=== PATIENT | male | born 1980 | race Caucasian/White ===

== ENCOUNTER 2018-09-11 23:49 | Inpatient (IN) | payer OTHER ==
[2018-09-11] MEDS ORDERED: SODIUM CHLORIDE 0.9% 1,000 ML IV ONE ×2 (23:54)
[2018-09-11] MEDS ORDERED: INSULIN REGULAR 100 UNIT/ML VIAL IV STA (23:55)
[2018-09-12 00:03] LABS: Glucose,Whole Blood >600 mg/dL (75-99)
[2018-09-12 00:18] LABS: Ammonia <9 umol/L (<30)
[2018-09-12 00:21] LABS: Calcium 9.8 mg/dL (8.4-10.2); Potassium 5.1 mmol/L (3.5-5.1); Total Bilirubin 0.7 mg/dL (0.2-1.3); Total Protein 6.3 g/dL (6.3-8.2)
[2018-09-12 00:23] LABS: Appearance,Urine Clear (Clear); Bilirubin,Urine Negative (Negative); Blood,Urine Negative (Negative); Color,Urine Light Yellow; Glucose,Urine (UA) 4+ (Negative); Ketones,Urine 1+ (Negative); Leukocyte Esterase,Urine Negative (Negative); Nitrite,Urine Negative (Negative); Protein,Urine Trace (Negative); Specific Gravity,Urine 1.029 (1.001-1.035); Urobilinogen,Urine <2.0 mg/dL (<2.0)
--- NOTE | 2018-09-12 00:25 | ED ---
Altered Mental Status HPI - General Chief Complaint: Altered Mental Status Stated Complaint: unresponsive Time Seen by Provider: 09/11/18 23:54 Source: family, EMS Mode of arrival: EMS Limitations: altered mental status - History of Present Illness Initial Comments: This patient is a 38-year-old man reportedly with no past medical history, who is brought by ambulance to be evaluated for being unresponsive. The patient is not able to give any history due to altered mental status. I was able to obtain history from the patient's partner and from his mother. They relate that over the past couple of weeks he seems to have been not feeling very well, drinking more water, and urinating more frequently. This seemed to progress more rapidly over the past 3 days, and the patient was spending basically all day in bed on Tuesday and Tuesday. Tonight he was not responding verbally to them so they called EMS. EMS reported that the patient was very hypotensive with blood pressure approximately 50 systolic. MD Complaint: decreased responsiveness Onset/Timin -: days(s) Severity: severe Consistency of Symptoms: getting worse Treatments Prior to Arrival: IV fluid - Related Data Previous Rx's Medication Instructions Recorded HYDROcodone/APAP 5-325MG [[place] 1 each PO Q6HR PRN #20 tab 12/16/14 5-325] SILVER sulfADIAZINE CREAM 1 applic TOPICAL BID #60 gram 12/16/14 [Silvadene Cream] Allergies Allergy/AdvReac Type Severity Reaction Status Date / Time No Known Allergies Allergy Verified 09/11/18 23:58 Review of Systems ROS Statement: Those systems with pertinent positive or pertinent negative responses have been documented in the HPI. ROS Other: All systems not noted in ROS Statement are negative. Limitations: ROS unobtainable due to patients medical condition Endocrine: Reports: polydipsia, polyuria Past Medical History Past Medical History: No Reported History History of Any Multi-Drug Resistant Organisms: None Reported Past Surgical History: No Surgical Hx Reported Past Psychological History: No Psychological Hx Reported Smoking Status: Current every day smoker Past Alcohol Use History: None Reported Past Drug Use History: None Reported General Exam Limitations: altered mental status General appearance: obtunded Head exam: Present: atraumatic, normocephalic Eye exam: Present: PERRL. Absent: scleral icterus, conjunctival injection ENT exam: Present: mucous membranes dry Neck exam: Present: normal inspection. Absent: tenderness, meningismus Respiratory exam: Present: respiratory distress, rhonchi, other ([place]ul respirations). Absent: wheezes, rales, stridor Cardiovascular Exam: Present: normal rhythm, tachycardia, normal heart sounds. Absent: systolic murmur, diastolic murmur, rubs, gallop GI/Abdominal exam: Present: soft. Absent: tenderness, organomegaly, pulsatile mass, hernia exam: Present: normal inspection Extremities exam: Present: normal inspection. Absent: normal capillary refill, pedal edema, calf tenderness Back exam: Present: normal inspection Neurological exam: Present: altered Skin exam: Present: dry, intact, mottled. Absent: rash, diaphoretic, erythema, urticaria, vesicles, petechiae Course Vital Signs 09/11/18 09/11/18 09/12/18 23:51 23:55 00:00 Temperature 98.6 F Pulse Rate 106 H 105 H 104 H Pulse Rate [ Regional Driver ] Respiratory 22 Rate Blood Pressure 89/50 89/50 80/68 Blood Pressure [Left Arm] O2 Sat by Pulse 98 99 Oximetry 09/12/18 09/12/18 09/12/18 00:01 00:10 00:20 Temperature Pulse Rate 102 H 104 H 105 H Pulse Rate [ Regional Driver ] Respiratory 22 Rate Blood Pressure 93/48 93/48 93/48 Blood Pressure [Left Arm] O2 Sat by Pulse 95 Oximetry 09/12/18 09/12/18 09/12/18 00:30 00:40 00:50 Temperature Pulse Rate 104 H Pulse Rate [ Regional Driver ] Respiratory Rate Blood Pressure 93/48 93/48 111/61 Blood Pressure [Left Arm] O2 Sat by Pulse 100 Oximetry 09/12/18 09/12/18 09/12/18 01:00 01:30 02:00 Temperature Pulse Rate 104 H 104 H 105 H Pulse Rate [ Regional Driver ] Respiratory Rate Blood Pressure 111/61 100/53 135/81 Blood Pressure [Left Arm] O2 Sat by Pulse 100 100 97 Oximetry 09/12/18 09/12/18 09/12/18 02:30 02:45 02:49 Temperature 97 F L Pulse Rate 105 H Pulse Rate [ 105 H Regional Driver ] Respiratory 27 H Rate Blood Pressure 96/54 112/70 Blood Pressure 99/58 [Left Arm] O2 Sat by Pulse 98 96 Oximetry 09/12/18 03:00 Temperature Pulse Rate 106 H Pulse Rate [ Regional Driver ] Respiratory Rate Blood Pressure 112/70 Blood Pressure [Left Arm] O2 Sat by Pulse 95 Oximetry Medical Decision Making - Lab Data Result diagrams: 09/12/18 04:27 09/12/18 04:27 Lab Results 09/11/18 09/11/18 09/11/18 Range/Units 23:15 23:15 23:52 WBC (3.8-10.6) k/uL RBC (4.30-5.90) m/uL Hgb (13.0-17.5) gm/dL Hct (39.0-53.0) % MCV (80.0-100.0) fL MCH (25.0-35.0) pg MCHC (31.0-37.0) g/dL RDW (11.5-15.5) % Plt Count (150-450) k/uL Neutrophils % % Lymphocytes % % Monocytes % % Eosinophils % % Basophils % % Neutrophils # (1.3-7.7) k/uL Lymphocytes # (1.0-4.8) k/uL Monocytes # (0-1.0) k/uL Eosinophils # (0-0.7) k/uL Basophils # (0-0.2) k/uL Hypochromasia Macrocytosis PT (9.0-12.0) sec INR (<1.2) APTT (22.0-30.0) sec Sodium (137-145) mmol/L Potassium (3.5-5.1) mmol/L Chloride (98-107) mmol/L Carbon Dioxide (22-30) mmol/L Anion Gap mmol/L BUN (9-20) mg/dL Creatinine (0.66-1.25) mg/dL Est GFR (CKD-EPI)AfAm (>60 ml/min/1.73 sqM) Est GFR (CKD-EPI)NonAf (>60 ml/min/1.73 sqM) Glucose (74-99) mg/dL POC Glucose (mg/dL) >600 H (75-99) mg/dL POC Glu Phlebotomy Program Coordinator ID Dior Berrios Osmolality ([phone]) mosm/kg Lactic Ac Sepsis Rflx Plasma Lactic Acid Reinier (0.7-2.0) mmol/L Calcium (8.4-10.2) mg/dL Phosphorus (2.5-4.5) mg/dL Magnesium (1.6-2.3) mg/dL Total Bilirubin (0.2-1.3) mg/dL AST (17-59) U/L ALT (21-72) U/L Alkaline Phosphatase (38-126) U/L Ammonia (<30) umol/L Troponin I (0.000-0.034) ng/mL Total Protein (6.3-8.2) g/dL Albumin (3.5-5.0) g/dL Urine Color Light Yellow Urine Appearance Clear (Clear) Urine pH 5.0 (5.0-8.0) Ur Specific [place] 1.029 (1.001-1.035) Urine Protein Trace H (Negative) Urine Glucose (UA) 4+ H (Negative) Urine Ketones 1+ H (Negative) Urine Blood Negative (Negative) Urine Nitrite Negative (Negative) Urine Bilirubin Negative (Negative) Urine Urobilinogen <2.0 (<2.0) mg/dL Ur Leukocyte Esterase Negative (Negative) Urine Opiates Screen Not Detected (NotDetected) Ur Oxycodone Screen Not Detected (NotDetected) Urine Methadone Screen Not Detected (NotDetected) Ur Propoxyphene Screen Not Detected (NotDetected) Ur Barbiturates Screen Not Detected (NotDetected) U Tricyclic Antidepress Not Detected (NotDetected) Ur Phencyclidine Scrn Not Detected (NotDetected) Ur Amphetamines Screen Detected H (NotDetected) U Methamphetamines Scrn Not Detected (NotDetected) U Benzodiazepines Scrn Not Detected (NotDetected) Urine Cocaine Screen Not Detected (NotDetected) U Marijuana (THC) Screen Not Detected (NotDetected) Acetone, Qual (Negative) 09/12/18 09/12/18 09/12/18 Range/Units 00:00 00:00 00:00 WBC 15.5 H (3.8-10.6) k/uL RBC 5.18 (4.30-5.90) m/uL Hgb 16.4 (13.0-17.5) gm/dL Hct 57.5 H* (39.0-53.0) % MCV 111.0 H (80.0-100.0) fL MCH 31.6 (25.0-35.0) pg MCHC 28.5 L (31.0-37.0) g/dL RDW 12.3 (11.5-15.5) % Plt Count 245 (150-450) k/uL Neutrophils % 88 % Lymphocytes % 6 % Monocytes % 5 % Eosinophils % 0 % Basophils % 0 % Neutrophils # 13.6 H (1.3-7.7) k/uL Lymphocytes # 1.0 (1.0-4.8) k/uL Monocytes # 0.7 (0-1.0) k/uL Eosinophils # 0.1 (0-0.7) k/uL Basophils # 0.1 (0-0.2) k/uL Hypochromasia Marked Macrocytosis Marked PT (9.0-12.0) sec INR (<1.2) APTT (22.0-30.0) sec Sodium 139 (137-145) mmol/L Potassium 5.1 (3.5-5.1) mmol/L Chloride 93 L (98-107) mmol/L Carbon Dioxide 6 L* (22-30) mmol/L Anion Gap 40 mmol/L BUN 74 H (9-20) mg/dL Creatinine 5.57 H (0.66-1.25) mg/dL Est GFR (CKD-EPI)AfAm 14 (>60 ml/min/1.73 sqM) Est GFR (CKD-EPI)NonAf 12 (>60 ml/min/1.73 sqM) Glucose (74-99) mg/dL POC Glucose (mg/dL) (75-99) mg/dL POC Glu Phlebotomy Program Coordinator ID Osmolality ([phone]) mosm/kg Lactic Ac Sepsis Rflx Plasma Lactic Acid [place] 6.7 H* (0.7-2.0) mmol/L Calcium 9.8 (8.4-10.2) mg/dL Phosphorus (2.5-4.5) mg/dL Magnesium (1.6-2.3) mg/dL Total Bilirubin 0.7 (0.2-1.3) mg/dL AST 46 (17-59) U/L ALT 103 H (21-72) U/L Alkaline Phosphatase 224 H (38-126) U/L Ammonia <9 (<30) umol/L Troponin I (0.000-0.034) ng/mL Total Protein 6.3 (6.3-8.2) g/dL Albumin 4.0 (3.5-5.0) g/dL Urine Color Urine Appearance (Clear) Urine pH (5.0-8.0) Ur Specific [place] (1.001-1.035) Urine Protein (Negative) Urine Glucose (UA) (Negative) Urine Ketones (Negative) Urine Blood (Negative) Urine Nitrite (Negative) Urine Bilirubin (Negative) Urine Urobilinogen (<2.0) mg/dL Ur Leukocyte Esterase (Negative) Urine Opiates Screen (NotDetected) Ur Oxycodone Screen (NotDetected) Urine Methadone Screen (NotDetected) Ur Propoxyphene Screen (NotDetected) Ur Barbiturates Screen (NotDetected) U Tricyclic Antidepress (NotDetected) Ur Phencyclidine Scrn (NotDetected) Ur Amphetamines Screen (NotDetected) U Methamphetamines Scrn (NotDetected) U Benzodiazepines Scrn (NotDetected) Urine Cocaine Screen (NotDetected) U Marijuana (THC) Screen (NotDetected) Acetone, Qual (Negative) 09/12/18 09/12/18 09/12/18 Range/Units 00:00 00:00 00:00 WBC (3.8-10.6) k/uL RBC (4.30-5.90) m/uL Hgb (13.0-17.5) gm/dL Hct (39.0-53.0) % MCV (80.0-100.0) fL MCH (25.0-35.0) pg MCHC (31.0-37.0) g/dL RDW (11.5-15.5) % Plt Count (150-450) k/uL Neutrophils % % Lymphocytes % % Monocytes % % Eosinophils % % Basophils % % Neutrophils # (1.3-7.7) k/uL Lymphocytes # (1.0-4.8) k/uL Monocytes # (0-1.0) k/uL Eosinophils # (0-0.7) k/uL Basophils # (0-0.2) k/uL Hypochromasia Macrocytosis PT 9.3 (9.0-12.0) sec INR 0.8 (<1.2) APTT 22.2 (22.0-30.0) sec Sodium (137-145) mmol/L Potassium (3.5-5.1) mmol/L Chloride (98-107) mmol/L Carbon Dioxide (22-30) mmol/L Anion Gap mmol/L BUN (9-20) mg/dL Creatinine (0.66-1.25) mg/dL Est GFR (CKD-EPI)AfAm (>60 ml/min/1.73 sqM) Est GFR (CKD-EPI)NonAf (>60 ml/min/1.73 sqM) Glucose (74-99) mg/dL POC Glucose (mg/dL) (75-99) mg/dL POC Glu Phlebotomy Program Coordinator ID Osmolality ([phone]) mosm/kg Lactic Ac Sepsis Rflx Plasma Lactic Acid Rein[place] (0.7-2.0) mmol/L Calcium (8.4-10.2) mg/dL Phosphorus (2.5-4.5) mg/dL Magnesium (1.6-2.3) mg/dL Total Bilirubin (0.2-1.3) mg/dL AST (17-59) U/L ALT (21-72) U/L Alkaline Phosphatase (38-126) U/L Ammonia (<30) umol/L Troponin I 0.015 (0.000-0.034) ng/mL Total Protein (6.3-8.2) g/dL Albumin (3.5-5.0) g/dL Urine Color Urine Appearance (Clear) Urine pH (5.0-8.0) Ur Specific [place] (1.001-1.035) Urine Protein (Negative) Urine Glucose (UA) (Negative) Urine Ketones (Negative) Urine Blood (Negative) Urine Nitrite (Negative) Urine Bilirubin (Negative) Urine Urobilinogen (<2.0) mg/dL Ur Leukocyte Esterase (Negative) Urine Opiates Screen (NotDetected) Ur Oxycodone Screen (NotDetected) Urine Methadone Screen (NotDetected) Ur Propoxyphene Screen (NotDetected) Ur Barbiturates Screen (NotDetected) U Tricyclic Antidepress (NotDetected) Ur Phencyclidine Scrn (NotDetected) Ur Amphetamines Screen (NotDetected) U Methamphetamines Scrn (NotDetected) U Benzodiazepines Scrn (NotDetected) Urine Cocaine Screen (NotDetected) U Marijuana (THC) Screen (NotDetected) Acetone, Qual Positive (Negative) 09/12/18 09/12/18 09/12/18 Range/Units 00:00 00:41 00:47 WBC (3.8-10.6) k/uL RBC (4.30-5.90) m/uL Hgb (13.0-17.5) gm/dL Hct (39.0-53.0) % MCV (80.0-100.0) fL MCH (25.0-35.0) pg MCHC (31.0-37.0) g/dL RDW (11.5-15.5) % Plt Count (150-450) k/uL Neutrophils % % Lymphocytes % % Monocytes % % Eosinophils % % Basophils % % Neutrophils # (1.3-7.7) k/uL Lymphocytes # (1.0-4.8) k/uL Monocytes # (0-1.0) k/uL Eosinophils # (0-0.7) k/uL Basophils # (0-0.2) k/uL Hypochromasia Macrocytosis PT (9.0-12.0) sec INR (<1.2) APTT (22.0-30.0) sec Sodium (137-145) mmol/L Potassium (3.5-5.1) mmol/L Chloride (98-107) mmol/L Carbon Dioxide (22-30) mmol/L Anion Gap mmol/L BUN (9-20) mg/dL Creatinine (0.66-1.25) mg/dL Est GFR (CKD-EPI)AfAm (>60 ml/min/1.73 sqM) Est GFR (CKD-EPI)NonAf (>60 ml/min/1.73 sqM) Glucose (74-99) mg/dL POC Glucose (mg/dL) >600 H (75-99) mg/dL POC Glu Phlebotomy Program Coordinator ID Olga Costello Osmolality 457 H* (280-301) mosm/kg Lactic Ac Sepsis Rflx Y Plasma Lactic Acid [place] (0.7-2.0) mmol/L Calcium (8.4-10.2) mg/dL Phosphorus 10.3 H* (2.5-4.5) mg/dL Magnesium 4.0 H (1.6-2.3) mg/dL Total Bilirubin (0.2-1.3) mg/dL AST (17-59) U/L ALT (21-72) U/L Alkaline Phosphatase (38-126) U/L Ammonia (<30) umol/L Troponin I (0.000-0.034) ng/mL Total Protein (6.3-8.2) g/dL Albumin (3.5-5.0) g/dL Urine Color Urine Appearance (Clear) Urine pH (5.0-8.0) Ur Specific [place] (1.001-1.035) Urine Protein (Negative) Urine Glucose (UA) (Negative) Urine Ketones (Negative) Urine Blood (Negative) Urine Nitrite (Negative) Urine Bilirubin (Negative) Urine Urobilinogen (<2.0) mg/dL Ur Leukocyte Esterase (Negative) Urine Opiates Screen (NotDetected) Ur Oxycodone Screen (NotDetected) Urine Methadone Screen (NotDetected) Ur Propoxyphene Screen (NotDetected) Ur Barbiturates Screen (NotDetected) U Tricyclic Antidepress (NotDetected) Ur Phencyclidine Scrn (NotDetected) Ur Amphetamines Screen (NotDetected) U Methamphetamines Scrn (NotDetected) U Benzodiazepines Scrn (NotDetected) Urine Cocaine Screen (NotDetected) U Marijuana (THC) Screen (NotDetected) Acetone, Qual (Negative) 09/12/18 Range/Units 02:23 WBC (3.8-10.6) k/uL RBC (4.30-5.90) m/uL Hgb (13.0-17.5) gm/dL Hct (39.0-53.0) % MCV (80.0-100.0) fL MCH (25.0-35.0) pg MCHC (31.0-37.0) g/dL RDW (11.5-15.5) % Plt Count (150-450) k/uL Neutrophils % % Lymphocytes % % Monocytes % % Eosinophils % % Basophils % % Neutrophils # (1.3-7.7) k/uL Lymphocytes # (1.0-4.8) k/uL Monocytes # (0-1.0) k/uL Eosinophils # (0-0.7) k/uL Basophils # (0-0.2) k/uL Hypochromasia Macrocytosis PT (9.0-12.0) sec INR (<1.2) APTT (22.0-30.0) sec Sodium (137-145) mmol/L Potassium (3.5-5.1) mmol/L Chloride (98-107) mmol/L Carbon Dioxide (22-30) mmol/L Anion Gap mmol/L BUN (9-20) mg/dL Creatinine (0.66-1.25) mg/dL Est GFR (CKD-EPI)AfAm (>60 ml/min/1.73 sqM) Est GFR (CKD-EPI)NonAf (>60 ml/min/1.73 sqM) Glucose (74-99) mg/dL POC Glucose (mg/dL) >600 H (75-99) mg/dL POC Glu Phlebotomy Program Coordinator ID Olga Costello Osmolality ([phone]) mosm/kg Lactic Ac Sepsis Rflx Plasma Lactic Acid Rein[place] (0.7-2.0) mmol/L Calcium (8.4-10.2) mg/dL Phosphorus (2.5-4.5) mg/dL Magnesium (1.6-2.3) mg/dL Total Bilirubin (0.2-1.3) mg/dL AST (17-59) U/L ALT (21-72) U/L Alkaline Phosphatase (38-126) U/L Ammonia (<30) umol/L Troponin I (0.000-0.034) ng/mL Total Protein (6.3-8.2) g/dL Albumin (3.5-5.0) g/dL Urine Color Urine Appearance (Clear) Urine pH (5.0-8.0) Ur Specific [place] (1.001-1.035) Urine Protein (Negative) Urine Glucose (UA) (Negative) Urine Ketones (Negative) Urine Blood (Negative) Urine Nitrite (Negative) Urine Bilirubin (Negative) Urine Urobilinogen (<2.0) mg/dL Ur Leukocyte Esterase (Negative) Urine Opiates Screen (NotDetected) Ur Oxycodone Screen (NotDetected) Urine Methadone Screen (NotDetected) Ur Propoxyphene Screen (NotDetected) Ur Barbiturates Screen (NotDetected) U Tricyclic Antidepress (NotDetected) Ur Phencyclidine Scrn (NotDetected) Ur Amphetamines Screen (NotDetected) U Methamphetamines Scrn (NotDetected) U Benzodiazepines Scrn (NotDetected) Urine Cocaine Screen (NotDetected) U Marijuana (THC) Screen (NotDetected) Acetone, Qual (Negative) - EKG Data -: EKG Interpreted by Me EKG shows normal: sinus rhythm, axis (Normal), intervals (Normal), QRS complexes (Normal), ST-T waves (Normal) Rate: tachycardia (Rate 105 bpm) Critical Care Time Critical Care Time: Yes (40 minutes) Disposition Clinical Impression: Diabetic ketoacidosis, Acute kidney injury, Altered mental status Disposition: ADMITTED IP TO THIS [facility] Condition: Serious
[2018-09-12 00:33] LABS: Amphetamine Screen,Urine Detected (NotDetected); Barbiturate Screen,Urine Not Detected (NotDetected); Benzodiazepines Screen,Urine Not Detected (NotDetected); Cocaine Screen,Urine Not Detected (NotDetected); Methadone Screen, Urine Not Detected (NotDetected); Opiate Screen,Urine Not Detected (NotDetected); Oxycodone Screen, Urine Not Detected (NotDetected); Phencyclidine Screen,Urine Not Detected (NotDetected); Tricyclic Antidepressant,Urine Not Detected (NotDetected); Urn Cannabinoid Scrn Not Detected (NotDetected)
[2018-09-12 00:36] LABS: Basophils # (A) 0.1 k/uL (0-0.2); Basophils % (A) 0 %; Eosinophils # (A) 0.1 k/uL (0-0.7); Eosinophils % (A) 0 %; HGB 16.4 gm/dL (13.0-17.5); Hypochromasia Marked; Lymphocytes % (A) 6 %; MCH 31.6 pg (25.0-35.0); MCHC 28.5 g/dL (31.0-37.0); Macrocytosis Marked; Mean Platelet Volume 9.4; Monocytes # (A) 0.7 k/uL (0-1.0); Monocytes % (A) 5 %; Neutrophils # (A) 13.6 k/uL (1.3-7.7); Neutrophils % (A) 88 %; Platelet Count 245 k/uL (150-450); RBC 5.18 m/uL (4.30-5.90); RDW 12.3 % (11.5-15.5); WBC 15.5 k/uL (3.8-10.6)
[2018-09-12 00:41] LABS: Lactic Acid, Venous 6.7 mmol/L (0.7-2.0)
[2018-09-12 00:42] LABS: HCT 57.5 % (39.0-53.0)
[2018-09-12 00:56] LABS: Glucose,Whole Blood >600 mg/dL (75-99)
[2018-09-12] MEDS: SODIUM CHLORIDE 0.9% 1,000 ML IV SCH ×2 (01:09→08:24)
[2018-09-12] MEDS: INSULIN REGULAR 100 UNIT in SODIUM CHLORIDE 0.9% 100 ML IV SCH ×2 (01:09→16:18)
--- NOTE | 2018-09-12 01:38 | CT ---
EXAM: CT Head Without Intravenous Contrast CLINICAL HISTORY: altered mental status TECHNIQUE: Axial computed tomography images of the head/brain without intravenous contrast. CTDI is 50.6 mGy and DLP is 1126 mGy-cm. This CT exam was performed using one or more of the following dose reduction techniques: automated exposure control, adjustment of the mA and/or kV according to patient size, and/or use of iterative reconstruction technique. COMPARISON: No relevant prior studies available. FINDINGS: Brain: Unremarkable. No hemorrhage. No significant white matter disease. No edema. Ventricles: Unremarkable. No ventriculomegaly. Bones/joints: Unremarkable. No acute fracture. Soft tissues: Unremarkable. Sinuses: Unremarkable as visualized. No acute sinusitis. Mastoid air cells: Unremarkable as visualized. No mastoid effusion. IMPRESSION: Normal head/brain CT.
--- NOTE | 2018-09-12 01:39 | XR ---
EXAM: XR Chest, 1 View CLINICAL HISTORY: altered mental status TECHNIQUE: Frontal view of the chest. COMPARISON: No relevant prior studies available. FINDINGS: Lungs: No evidence for consolidation. No infiltrates. Pleural space: Unremarkable. No pneumothorax. Heart: Unremarkable. No cardiomegaly. Mediastinum: Unremarkable. Bones/joints: Unremarkable. IMPRESSION: Unremarkable chest x-ray
[2018-09-12] MEDS ORDERED: SODIUM CHLORIDE 0.9% 1,000 ML IV SCH (02:30)
[2018-09-12 02:33] LABS: Glucose,Whole Blood >600 mg/dL (75-99)
[2018-09-12 03:01] LABS: Phosphorus 10.3 mg/dL (2.5-4.5)
[2018-09-12 03:29] LABS: Glucose,Whole Blood >600 mg/dL (75-99)
[2018-09-12 03:51] LABS: VBG PH 7.18 (7.31-7.41)
[2018-09-12 04:02] LABS: Potassium 3.4 mmol/L (3.5-5.1)
[2018-09-12] MEDS ORDERED: NALOXONE 0.4 MG/ML 1 ML VIAL IV PRN (04:11)
[2018-09-12 04:53] LABS: Basophils # (A) 0.1 k/uL (0-0.2); Basophils % (A) 0 %; Eosinophils # (A) 0.1 k/uL (0-0.7); Eosinophils % (A) 1 %; HCT 51.4 % (39.0-53.0); HGB 15.8 gm/dL (13.0-17.5); Hypochromasia Moderate; Lymphocytes # (A) 1.4 k/uL (1.0-4.8); Lymphocytes % (A) 11 %; MCH 30.6 pg (25.0-35.0); MCHC 30.7 g/dL (31.0-37.0); MCV 99.7 fL (80.0-100.0); Mean Platelet Volume 9.6; Monocytes # (A) 0.2 k/uL (0-1.0); Monocytes % (A) 2 %; Neutrophils # (A) 10.7 k/uL (1.3-7.7); Neutrophils % (A) 86 %; Platelet Count 187 k/uL (150-450); RBC 5.16 m/uL (4.30-5.90); RDW 12.8 % (11.5-15.5); WBC 12.4 k/uL (3.8-10.6)
[2018-09-12 04:57] LABS: Calcium 6.9 mg/dL (8.4-10.2); Magnesium 2.9 mg/dL (1.6-2.3); Phosphorus 1.7 mg/dL (2.5-4.5)
[2018-09-12] MEDS ORDERED: Potassium Replacement Protocol 1 EACH MISC MISCELLANE PRN (05:01)
[2018-09-12] MEDS ORDERED: SODIUM CHLORIDE 0.9% 2,000 ML IV ONE (05:02)
[2018-09-12 05:06] LABS: Potassium 4.5 mmol/L (3.5-5.1)
[2018-09-12] MEDS: POTASSIUM CHLORIDE 10 MEQ in WATER FOR INJECTION 1 100ML.BAG IVPB SCH ×2 (05:44→06:44)
[2018-09-12 06:06] LABS: Glucose,Whole Blood >600 mg/dL (75-99)
[2018-09-12 06:10] LABS: Appearance,Urine Cloudy (Clear); Bilirubin,Urine Negative (Negative); Blood,Urine Small (Negative); Color,Urine Light Yellow; Glucose,Urine (UA) 4+ (Negative); Ketones,Urine 1+ (Negative); Leukocyte Esterase,Urine Negative (Negative); Mucus,Urine Rare /hpf; Nitrite,Urine Negative (Negative); Protein,Urine Trace (Negative); RBC,Urine 2 /hpf (0-5); Specific Gravity,Urine 1.027 (1.001-1.035); Squamous Epithelial Cell,Urine <1 /hpf (0-4); Urobilinogen,Urine <2.0 mg/dL (<2.0)
[2018-09-12 08:25] LABS: Potassium 3.8 mmol/L (3.5-5.1)
[2018-09-12] MEDS: HEPARIN SODIUM,PORCINE 5,000 UNIT/ML 1 ML VIAL SQ SCH ×2 (08:25→17:52)
[2018-09-12 09:00] LABS: Creatine Kinase MB 1.3 ng/mL (0.0-2.4)
[2018-09-12] MEDS: SODIUM CHLORIDE 0.45% 1,000 ML IV SCH ×4 (09:16→12:28)
[2018-09-12] MEDS ORDERED: SODIUM CHLORIDE 0.45% 1,000 ML IV SCH (09:30)
[2018-09-12] MEDS ORDERED: FAMOTIDINE 20 MG/2 ML VIAL IV SCH (09:30)
--- NOTE | 2018-09-12 09:51 | P.CNPUL ---
History of Present Illness Consult date: 09/12/18 Requesting physician: Joseph Mckeon Reason for consult: other Chief complaint: Altered Mental status, lactic acidosis, DKA History of present illness: This is a 38-year-old white male patient with no significant medical history, other than current history of smoking, some EtOH use, who was brought into the emergency department per EMS on all 09/11/2018 with unresponsiveness. Patient was accompanied by his mother who provided much of the history. This morning patient is seen in the tensive care unit, and there is no family around, patient is still obtunded, not following command, but moving all [address] was done in the emergency department which was negative for acute intracranial process. Reportedly patient had not been feeling well over the last couple of weeks, has been having increased thirst, drinking more water and urinating more frequently. He spent all day in bed on Tuesday and Tuesday, he was not responding and EMS was called on Tuesday. Patient was profoundly hypotensive with a systolic blood pressure in the 50s. Blood work in the emergency department showed serum glucose at 1380, white blood cell count was 15.5, hemoglobin is 16.4, hematocrit was 57.5, patient was profoundly acidotic, with CO2 of 6, venous blood gas showed a bicarb of 11, pCO2 of 32, and pH of 7.18. Serum sodium is 139, potassium is 5.1, chloride is 93, anion gap was 40, BUN was 74, creatinine was 5.57, serum osmolality was elevated at 457, plasma lactic acid is 6.7, AST is 46, ALT was 103, alkaline phosphatase was 224, troponin was 0.015, urinalysis showed trace protein, 4+ glucose, 1+ ketones, no evidence of infection, urine drug screen showed amphetamines serum acetone was positive. Patient was given 2 L of 0.9 normal saline in the emergency department, he received another 2 L in the intensive care unit, insulin drip per DKA protocol has been initiated. This morning his blood work has been reviewed, shows a white blood cell count of 12.4, hemoglobin of 15.8, serum sodium is 156, potassium is 3.8, chloride is 126, CO2 16, anion gap is down to 14, B1 is 71, creatinine is 3.28, serum glucose is 921. Patient is currently on 0.9 normal saline at a rate of 200 ML per hour, insulin drip is at 8 units per hour, as no lactic acid is 2.3. Blood cultures and urine culture have been ordered and sent. Patient has been afebrile, chest x-ray was unremarkable. No evidence of consolidation or infiltrates. EKG showed sinus tachycardia with evidence of right atrial enlargement. Blood pressures recovered, and is not on any nasal pressor support, blood pressure is 108/60, sinus tach at a rate of 116 BPM room air pulse ox is 95%. Review of Systems All systems: negative Constitutional: Reports lethargy, Reports malaise, Reports weakness, Denies chills, Denies fever Eyes: denies blurred vision, denies pain Ears, nose, mouth and throat: Denies headache, Denies sore throat Cardiovascular: Denies chest pain, Denies shortness of breath Respiratory: Denies cough Gastrointestinal: Denies abdominal pain, Denies diarrhea, Denies nausea, Denies vomiting Genitourinary: Reports polyuria Musculoskeletal: Denies myalgias Integumentary: Denies pruritus, Denies rash Neurological: Denies numbness, Denies weakness Psychiatric: Denies anxiety, Denies depression Endocrine: Denies fatigue, Denies weight change Past Medical History Past Medical History: No Reported History History of Any Multi-Drug Resistant Organisms: None Reported Past Surgical History: No Surgical Hx Reported Past Psychological History: No Psychological Hx Reported Smoking Status: Current every day smoker Past Alcohol Use History: None Reported Past Drug Use History: None Reported Medications and Allergies Home Medications Medication Instructions Recorded Confirmed Type Unable To Assess [Unable to Assess] 09/12/18 09/12/18 History Allergies Allergy/AdvReac Type Severity Reaction Status Date / Time No Known Allergies Allergy Verified 09/12/18 08:01 Physical Exam Vitals: Vital Signs Temp Pulse Pulse Resp BP BP Pulse Ox 09/12/18 06:00 109 H 14 102/72 99 09/12/18 05:30 109 H 26 H 102/72 09/12/18 05:10 105 H 37 H 95 09/12/18 03:00 106 H 112/70 95 09/12/18 02:49 97 F L 105 H 27 H 99/58 09/12/18 02:45 105 H 112/70 96 09/12/18 02:30 96/54 98 09/12/18 02:00 105 H 135/81 97 04/02/19 01:30 104 H 100/53 100 09/12/18 01:00 104 H 111/61 100 09/12/18 00:50 104 H 111/61 100 09/12/18 00:40 93/48 09/12/18 00:30 93/48 09/12/18 00:20 105 H 93/48 09/12/18 00:10 104 H 93/48 09/12/18 00:01 102 H 22 93/48 95 09/12/18 00:00 104 H 80/68 99 09/11/18 23:55 105 H 89/50 98 09/11/18 23:51 98.6 F 106 H 22 89/50 Intake and Output 09/11/18 09/12/18 09/12/18 22:59 06:59 14:59 Intake Total 2600 Output Total 2145 Balance 455 Intake: IV 2600 Sodium Chloride 0.9% 1, 600 000 ml @ 200 mls/hr IV . Q5H [facility] Rx#:[id number] Sodium Chloride 0.9% 1, 2000 000 ml @ 999 mls/hr IV . Q1H1M [facility] Rx#:[id number] Output: Urine 2145 Uretheral ([place]) 300 Other: # Bowel Movements 1 Weight 79.56 kg GENERAL EXAM: 38 -year-old white male, abdominal, not following command, tachypneic, moving all 4 extremities, nonpurposeful comfortable in no apparent distress. HEAD: Normocephalic/atraumatic. EYES: Normal reaction of pupils, equal size. Conjunctiva pink, sclera white. NOSE: Clear with pink turbinates. THROAT: No erythema or exudates. MOUTH: Extremely dry mucous membranes NECK: No masses, no JVD, no thyroid enlargement, no adenopathy. CHEST: No chest wall deformity. Symmetrical expansion. LUNGS: Equal air entry with no crackles, wheeze, rhonchi or dullness. CVS: Tachycardic, regular rate and rhythm, normal S1 and S2, no gallops, no murmurs, no rubs ABDOMEN: Soft, nontender. No hepatosplenomegaly, normal bowel sounds, no guarding or rigidity. EXTREMITIES: No clubbing, no edema, no cyanosis, 2+ pulses and upper and lower extremities. MUSCULOSKELETAL: Muscle strength and tone normal. SPINE: No scoliosis or deformity SKIN: No rashes CENTRAL NERVOUS SYSTEM: Obtunded, not following command. Moving all 4 extre mities Results - Laboratory Findings CBC and BMP: 09/12/18 04:27 09/12/18 07:55 PT/INR, D-dimer PT 9.3 sec (9.0-12.0) 09/12/18 00:00 INR 0.8 (<1.2) 09/12/18 00:00 Abnormal lab findings: Abnormal Labs 09/11/18 09/11/18 09/11/18 23:15 23:15 23:52 WBC Hct MCV MCHC Neutrophils # VBG pH VBG pCO2 VBG HCO3 Sodium Potassium Chloride Carbon Dioxide BUN Creatinine Glucose POC Glucose (mg/dL) >600 H Osmolality Plasma Lactic Acid Reinier Calcium Phosphorus Magnesium ALT Alkaline Phosphatase Urine Protein Trace H Urine Glucose (UA) 4+ H Urine Ketones 1+ H Urine Blood Urine WBC Urine Mucus Ur Amphetamines Screen Detected H 09/12/18 09/12/18 09/12/18 00:00 00:00 00:00 WBC 15.5 H Hct 57.5 H* MCV 111.0 H MCHC 28.5 L Neutrophils # 13.6 H VBG pH VBG pCO2 VBG HCO3 Sodium Potassium Chloride 93 L Carbon Dioxide 6 L* BUN 74 H Creatinine 5.57 H Glucose POC Glucose (mg/dL) Osmolality Plasma Lactic Acid Reinier 6.7 H* Calcium Phosphorus Magnesium ALT 103 H Alkaline Phosphatase 224 H Urine Protein Urine Glucose (UA) Urine Ketones Urine Blood Urine WBC Urine Mucus Ur Amphetamines Screen 09/12/18 09/12/18 09/12/18 00:00 00:47 02:23 WBC Hct MCV MCHC Neutrophils # VBG pH VBG pCO2 VBG HCO3 Sodium Potassium Chloride Carbon Dioxide BUN Creatinine Glucose POC Glucose (mg/dL) >600 H >600 H Osmolality 457 H* Plasma Lactic Acid Reinier Calcium Phosphorus 10.3 H* Magnesium 4.0 H ALT Alkaline Phosphatase Urine Protein Urine Glucose (UA) Urine Ketones Urine Blood Urine WBC Urine Mucus Ur Amphetamines Screen 09/12/18 09/12/18 09/12/18 03:25 03:32 03:32 WBC Hct MCV MCHC Neutrophils # VBG pH 7.18 L* VBG pCO2 32 L VBG HCO3 11 L Sodium Potassium Chloride Carbon Dioxide BUN Creatinine Glucose POC Glucose (mg/dL) >600 H Osmolality Plasma Lactic Acid Reinier Calcium Phosphorus 2.4 L Magnesium ALT Alkaline Phosphatase Urine Protein Urine Glucose (UA) Urine Ketones Urine Blood Urine WBC Urine Mucus Ur Amphetamines Screen 09/12/18 09/12/18 09/12/18 03:32 04:27 04:27 WBC 12.4 H Hct MCV MCHC 30.7 L Neutrophils # 10.7 H VBG pH VBG pCO2 VBG HCO3 Sodium 148 H 147 H Potassium 3.4 L Chloride 113 H 122 H Carbon Dioxide 9 L* 11 L BUN 74 H 61 H Creatinine 4.29 H 2.80 H Glucose 1380 H* 1040 H* POC Glucose (mg/dL) Osmolality Plasma Lactic Acid Reinier Calcium 6.9 L Phosphorus 1.7 L Magnesium 2.9 H ALT Alkaline Phosphatase Urine Protein Urine Glucose (UA) Urine Ketones Urine Blood Urine WBC Urine Mucus Ur Amphetamines Screen 09/12/18 09/12/18 09/12/18 05:45 06:04 07:55 WBC Hct MCV MCHC Neutrophils # VBG pH VBG pCO2 VBG HCO3 Sodium 156 H Potassium Chloride 126 H Carbon Dioxide 16 L BUN 71 H Creatinine 3.28 H Glucose 921 H* POC Glucose (mg/dL) >600 H Osmolality Plasma Lactic Acid Reinier Calcium Phosphorus Magnesium ALT Alkaline Phosphatase Urine Protein Trace H Urine Glucose (UA) 4+ H Urine Ketones 1+ H Urine Blood Small H Urine WBC 15 H Urine Mucus Rare H Ur Amphetamines Screen 09/12/18 07:55 WBC Hct MCV MCHC Neutrophils # VBG pH VBG pCO2 VBG HCO3 Sodium Potassium Chloride Carbon Dioxide BUN Creatinine Glucose POC Glucose (mg/dL) Osmolality Plasma Lactic Acid Reinier 2.3 H* Calcium Phosphorus Magnesium ALT Alkaline Phosphatase Urine Protein Urine Glucose (UA) Urine Ketones Urine Blood Urine WBC Urine Mucus Ur Amphetamines Screen - Diagnostic Findings Chest x-ray: report reviewed, image reviewed Additional studies: Brain CT reviewed, EKG reviewed Assessment and Plan Plan: Assessment: #1. Acute mental status, likely related to severe dehydration, electrolyte abnormality, DKA. Brain CT did not show any acute intracranial process #2. Diabetic ketoacidosis #3. Hypovolemic shock, likely related to severe dehydration, rule out sepsis #4. Hypernatremia #5. Anion gap metabolic acidosis related to lactic acidosis and DKA #6. Newly diagnosed diabetes mellitus, presented with DKA #7. History of nicotine dependence #8. EtOH use, the frequency and amount is unknown #9. Drug screen positive for amphetamines Plan: We'll give the patient additional 4 L of 0.45 normal saline fluid boluses, switch to maintenance IV fluid 2.45 at a rate of 200 ML per hour, continue with the insulin infusion per DKA protocol, continue electrolytes and renal profile check every 4 hours per protocol. Monitor I&O's, patient is more hemodynamically stable, blood cultures and urine cultures have been sent and are pending at this time. We'll obtain a influenza screen. We'll obtain another set of troponins. GI and DVT prophylaxis. Maintain aspiration precautions, nothing by mouth for now. Patient will remain the intensive care unit. I performed a history & physical examination of the patient and discussed their management with my nurse practitioner, Emili Banks. I reviewed the nurse practitioner's note and agree with the documented findings and plan of care. Lung sounds are positive for clear breath sounds. The findings and the impression was discussed with the patient. I attest to the documentation by the nurse practitioner. Time with Patient: Greater than 30
[2018-09-12 11:37] LABS: Glucose,Whole Blood 499 mg/dL (75-99)
[2018-09-12 12:09] LABS: Calcium 8.7 mg/dL (8.4-10.2); Potassium 3.9 mmol/L (3.5-5.1)
[2018-09-12 12:15] LABS: Glucose,Whole Blood 469 mg/dL (75-99)
[2018-09-12] MEDS: DEXTROSE 5% IN WATER 1,000 ML IV SCH ×2 (12:58→20:40)
[2018-09-12 13:04] LABS: Glucose,Whole Blood 403 mg/dL (75-99)
[2018-09-12 14:25] LABS: Glucose,Whole Blood 399 mg/dL (75-99)
[2018-09-12 15:27] LABS: Calcium 8.9 mg/dL (8.4-10.2); Potassium 4.1 mmol/L (3.5-5.1)
[2018-09-12 15:30] LABS: Glucose,Whole Blood 322 mg/dL (75-99)
[2018-09-12 16:13] LABS: Glucose,Whole Blood 296 mg/dL (75-99)
[2018-09-12] MEDS ORDERED: ACETAMINOPHEN IV (For NPO) 1,000 MG in EMPTY BAG 1 BAG IVPB STA (16:49)
[2018-09-12] MEDS ORDERED: ACETAMINOPHEN SUPPOSITORY 650 MG SUPP RECTAL PRN (17:15)
[2018-09-12 17:33] LABS: Glucose,Whole Blood 252 mg/dL (75-99)
[2018-09-12] MEDS ORDERED: D5-0.45% NACL WITH KCL 20MEQ/L 1,000 ML IV SCH (18:15)
[2018-09-12 18:22] LABS: Glucose,Whole Blood 182 mg/dL (75-99)
[2018-09-12 18:57] LABS: Glucose,Whole Blood 143 mg/dL (75-99)
[2018-09-12 19:23] LABS: Potassium 3.6 mmol/L (3.5-5.1)
[2018-09-12] MEDS ORDERED: LORazepam 2 MG/ML INJ IV STA (20:12)
[2018-09-12 20:27] LABS: ABG Base Excess -3.4 mmol/L; ABG HCO3 21 mmol/L (21-25); ABG Oxygen Saturation 98.1 % (94-97); ABG PCO2 33 mmHg (35-45); ABG PH 7.41 (7.35-7.45); ABG PO2 84 mmHg (83-108); ABG TCO2 22 mmol/L (19-24)
[2018-09-12 21:03] LABS: Glucose,Whole Blood 83 mg/dL (75-99)
[2018-09-12] MEDS ORDERED: LORazepam 2 MG/ML INJ ONE (21:46)
[2018-09-12 22:13] LABS: Glucose,Whole Blood 114 mg/dL (75-99)
--- NOTE | 2018-09-12 23:15 | CT ---
EXAM: CT Head Without Intravenous Contrast CLINICAL HISTORY: Reason: Hypernatremia, altered MS, restlessness TECHNIQUE: Axial computed tomography images of the head/brain without intravenous contrast. CTDI is 103.6 mGy and DLP is 3040.4 mGy-cm. This CT exam was performed using one or more of the following dose reduction techniques: automated exposure control, adjustment of the mA and/or kV according to patient size, and/or use of iterative reconstruction technique. COMPARISON: CT head 09/12/2018 at 0029 hours FINDINGS: Artifacts: Motion artifact limiting CT examination. Brain: No definite evidence of acute transcortical cerebral infarction or intracranial hemorrhage. No abnormal mass effect or midline shift. No abnormal extra-axial collections. Ventricles: Unremarkable. Bones/joints: No skull fracture identified. Sinuses: Imaged paranasal sinuses are clear except for mild left ethmoid sinus mucosal thickening. Mastoid air cells: Mastoid sinuses are clear. IMPRESSION: No definite evidence of acute intracranial abnormality.
--- NOTE | 2018-09-13 00:31 | P.HPIM ---
History of Present Illness H&P Date: 09/12/18 Chief Complaint: Altered mental status Patient is a 38-year-old male without significant past medical history was brought to the hospital by ambulance as the patient was found unresponsive. Patient cannot provide any history at this time. As per the ER note patient has not been feeling well for the last 2-3 weeks with increased thirst and frequent urination. Patient has been increasingly lethargic and confused during the weekend and not responsive today. EMS was called and that time.. Patient was hypotensive with SBP in 50s when he came to ER. Currently blood pressure is improved. Blood glucose was 1380 in the ER. Patient was having metabolic acidosis with pH level 7.18 and bicarb level of 6. Serum osmolality 457 BUN 74 Creatinine 5.57 lactic acid6.7 and anion gap 40 slightly elevated liver enzymes. Phosphorus 10.3 UDS is positive for amphetamines UA showed trace protein, 4+ glucose, 1+ ketones. Acetone positive Chest x-ray showed no acute cardiopulmonary process CT head showed no evidence of acute intracranial process. EKG showed sinus tachycardia Review of Systems Complete review of systems could not be obtained from the patient Past Medical History Past Medical History: No Reported History History of Any Multi-Drug Resistant Organisms: None Reported Past Surgical History: No Surgical Hx Reported Past Psychological History: No Psychological Hx Reported Smoking Status: Current every day smoker Past Alcohol Use History: None Reported Past Drug Use History: None Reported Medications and Allergies Home Medications Medication Instructions Recorded Confirmed Type Ibuprofen [Motrin] 800 mg PO Q6H PRN 09/12/18 09/12/18 History guaiFENesin-DM 600/30MG [Mucinex 1 tab PO Q12HR PRN 09/12/18 09/12/18 History Dm] Allergies Allergy/AdvReac Type Severity Reaction Status Date / Time No Known Allergies Allergy Verified 09/12/18 08:01 Physical Exam Vitals: Vital Signs Temp Pulse Pulse Resp BP BP Pulse Ox 09/12/18 14:00 124 H 33 H 103/62 96 09/12/18 13:00 123 H 35 H 103/62 95 09/12/18 12:00 99.9 F H 122 H 35 H 96/69 95 09/12/18 11:00 118 H 40 H 107/64 94 L 09/12/18 10:00 117 H 39 H 108/60 97 09/12/18 09:00 116 H 30 H 108/60 95 09/12/18 08:00 98.5 F 116 H 36 H 113/67 95 09/12/18 07:00 114 H 36 H 121/71 94 L 09/12/18 06:00 109 H 14 102/72 99 09/12/18 05:30 109 H 26 H 102/72 09/12/18 05:10 105 H 37 H 95 09/12/18 03:00 106 H 112/70 95 09/12/18 02:49 97 F L 105 H 27 H 99/58 09/12/18 02:45 105 H 112/70 96 09/12/18 02:30 96/54 98 09/12/18 02:00 105 H 135/81 97 09/12/18 01:30 104 H 100/53 100 09/12/18 01:00 104 H 111/61 100 09/12/18 00:50 104 H 111/61 100 09/12/18 00:40 93/48 09/12/18 00:30 93/48 09/12/18 00:20 105 H 93/48 09/12/18 00:10 104 H 93/48 09/12/18 00:01 102 H 22 93/48 95 09/12/18 00:00 104 H 80/68 99 09/11/18 23:55 105 H 89/50 98 09/11/18 23:51 98.6 F 106 H 22 89/50 Intake and Output 09/11/18 09/12/18 09/12/18 22:59 06:59 14:59 Intake Total 2600 4601.000 Output Total 2145 2220 Balance 455 2381.000 Intake: IV 2600 4400 Sodium Chloride 0.9% 1, 600 400 000 ml @ 200 mls/hr IV . Q5H NARGIS Rx#:[id number] Sodium Chloride 0.9% 1, 2000 4000 000 ml @ 999 mls/hr IV . Q1H1M ONE Rx#:[id number] Intake, IV Titration 201.000 Amount Insulin Regular 100 unit 101.000 In Sodium Chloride 0.9% 100 ml @ 0.1 UNITS/KG/HR 8.036 mls/hr IV .[id number] FORMERLY [facility], 1928–1983 Rx#:[id number] Potassium Chloride 10 meq 100 In Water For Injection 1 100ml.bag @ 100 mls/hr IVPB Q1H FOR[facility]LY [facility], [facility]–1983 Rx#: [id number] Output: Urine 2145 2220 Uretheral (Fitzpatrick) 300 Other: Voiding Method Indwelling Catheter # Bowel Movements 1 Weight 79.56 kg 79.56 kg PHYSICAL EXAMINATION: Patient is confused and distress and moving in the bed. Saturating well on nasal cannula.. HEENT: Normocephalic. Neck is supple. Pupils reactive. Nostrils clear. Oral cavity is moist. Ears reveal no drainage. Neck reveals no JVD, carotid bruits, or thyromegaly. CHEST EXAMINATION: Trachea is central. Symmetrical expansion. Lung troncoso clear to auscultation and percussion. CARDIAC: Normal S1, S2 with no gallops. No murmurs ABDOMEN: Soft. Nontender. Bowel sounds normal. No organomegaly. No abdominal bruits. Extremities: reveal no edema. No clubbing or cyanosis Neurologically patient is confused and lethargic. No gross focal deficits noted Skin: No rash or skin lesions. Psychiatric: Could not be assessed Musculoskeletal: No joint swelling or deformity. Normal range of motion. Results CBC & Chem 7: 09/12/18 04:27 09/12/18 18:53 Labs: Abnormal Lab Results - Last 24 Hours (Table) 09/11/18 09/11/18 09/11/18 Range/Units 23:15 23:15 23:52 WBC (3.8-10.6) k/uL Hct (39.0-53.0) % MCV (80.0-100.0) fL MCHC (31.0-37.0) g/dL Neutrophils # (1.3-7.7) k/uL VBG pH (7.31-7.41) VBG pCO2 (37-51) mmHg VBG HCO3 (24-28) mmol/L Sodium (137-145) mmol/L Potassium (3.5-5.1) mmol/L Chloride (98-107) mmol/L Carbon Dioxide (22-30) mmol/L BUN (9-20) mg/dL Creatinine (0.66-1.25) mg/dL Glucose (74-99) mg/dL POC Glucose (mg/dL) >600 H (75-99) mg/dL Osmolality (280-301) mosm/kg Plasma Lactic Acid Reinier (0.7-2.0) mmol/L Calcium (8.4-10.2) mg/dL Phosphorus (2.5-4.5) mg/dL Magnesium (1.6-2.3) mg/dL ALT (21-72) U/L Alkaline Phosphatase (38-126) U/L Urine Protein Trace H (Negative) Urine Glucose (UA) 4+ H (Negative) Urine Ketones 1+ H (Negative) Urine Blood (Negative) Urine WBC (0-5) /hpf Urine Mucus (None) /hpf Ur Amphetamines Screen Detected H (NotDetected) 09/12/18 09/12/18 09/12/18 Range/Units 00:00 00:00 00:00 WBC 15.5 H (3.8-10.6) k/uL Hct 57.5 H* (39.0-53.0) % MCV 111.0 H (80.0-100.0) fL MCHC 28.5 L (31.0-37.0) g/dL Neutrophils # 13.6 H (1.3-7.7) k/uL VBG pH (7.31-7.41) VBG pCO2 (37-51) mmHg VBG HCO3 (24-28) mmol/L Sodium (137-145) mmol/L Potassium (3.5-5.1) mmol/L Chloride 93 L (98-107) mmol/L Carbon Dioxide 6 L* (22-30) mmol/L BUN 74 H (9-20) mg/dL Creatinine 5.57 H (0.66-1.25) mg/dL Glucose (74-99) mg/dL POC Glucose (mg/dL) (75-99) mg/dL Osmolality (280-301) mosm/kg Plasma Lactic Acid Reinier 6.7 H* (0.7-2.0) mmol/L Calcium (8.4-10.2) mg/dL Phosphorus (2.5-4.5) mg/dL Magnesium (1.6-2.3) mg/dL ALT 103 H (21-72) U/L Alkaline Phosphatase 224 H (38-126) U/L Urine Protein (Negative) Urine Glucose (UA) (Negative) Urine Ketones (Negative) Urine Blood (Negative) Urine WBC (0-5) /hpf Urine Mucus (None) /hpf Ur Amphetamines Screen (NotDetected) 09/12/18 09/12/18 09/12/18 Range/Units 00:00 00:47 02:23 WBC (3.8-10.6) k/uL Hct (39.0-53.0) % MCV (80.0-100.0) fL MCHC (31.0-37.0) g/dL Neutrophils # (1.3-7.7) k/uL VBG pH (7.31-7.41) VBG pCO2 (37-51) mmHg VBG HCO3 (24-28) mmol/L Sodium (137-145) mmol/L Potassium (3.5-5.1) mmol/L Chloride (98-107) mmol/L Carbon Dioxide (22-30) mmol/L BUN (9-20) mg/dL Creatinine (0.66-1.25) mg/dL Glucose (74-99) mg/dL POC Glucose (mg/dL) >600 H >600 H (75-99) mg/dL Osmolality 457 H* (280-301) mosm/kg Plasma Lactic Acid Reinier (0.7-2.0) mmol/L Calcium (8.4-10.2) mg/dL Phosphorus 10.3 H* (2.5-4.5) mg/dL Magnesium 4.0 H (1.6-2.3) mg/dL ALT (21-72) U/L Alkaline Phosphatase (38-126) U/L Urine Protein (Negative) Urine Glucose (UA) (Negative) Urine Ketones (Negative) Urine Blood (Negative) Urine WBC (0-5) /hpf Urine Mucus (None) /hpf Ur Amphetamines Screen (NotDetected) 09/12/18 09/12/18 09/12/18 Range/Units 03:25 03:32 03:32 WBC (3.8-10.6) k/uL Hct (39.0-53.0) % MCV (80.0-100.0) fL MCHC (31.0-37.0) g/dL Neutrophils # (1.3-7.7) k/uL VBG pH 7.18 L* (7.31-7.41) VBG pCO2 32 L (37-51) mmHg VBG HCO3 11 L (24-28) mmol/L Sodium (137-145) mmol/L Potassium (3.5-5.1) mmol/L Chloride (98-107) mmol/L Carbon Dioxide (22-30) mmol/L BUN (9-20) mg/dL Creatinine (0.66-1.25) mg/dL Glucose (74-99) mg/dL POC Glucose (mg/dL) >600 H (75-99) mg/dL Osmolality (280-301) mosm/kg Plasma Lactic Acid Reinier (0.7-2.0) mmol/L Calcium (8.4-10.2) mg/dL Phosphorus 2.4 L (2.5-4.5) mg/dL Magnesium (1.6-2.3) mg/dL ALT (21-72) U/L Alkaline Phosphatase (38-126) U/L Urine Protein (Negative) Urine Glucose (UA) (Negative) Urine Ketones (Negative) Urine Blood (Negative) Urine WBC (0-5) /hpf Urine Mucus (None) /hpf Ur Amphetamines Screen (NotDetected) 09/12/18 09/12/18 09/12/18 Range/Units 03:32 04:27 04:27 WBC 12.4 H (3.8-10.6) k/uL Hct (39.0-53.0) % MCV (80.0-100.0) fL MCHC 30.7 L (31.0-37.0) g/dL Neutrophils # 10.7 H (1.3-7.7) k/uL VBG pH (7.31-7.41) VBG pCO2 (37-51) mmHg VBG HCO3 (24-28) mmol/L Sodium 148 H 147 H (137-145) mmol/L Potassium 3.4 L (3.5-5.1) mmol/L Chloride 113 H 122 H (98-107) mmol/L Carbon Dioxide 9 L* 11 L (22-30) mmol/L BUN 74 H 61 H (9-20) mg/dL Creatinine 4.29 H 2.80 H (0.66-1.25) mg/dL Glucose 1380 H* 1040 H* (74-99) mg/dL POC Glucose (mg/dL) (75-99) mg/dL Osmolality (280-301) mosm/kg Plasma Lactic Acid Reinier (0.7-2.0) mmol/L Calcium 6.9 L (8.4-10.2) mg/dL Phosphorus 1.7 L (2.5-4.5) mg/dL Magnesium 2.9 H (1.6-2.3) mg/dL ALT (21-72) U/L Alkaline Phosphatase (38-126) U/L Urine Protein (Negative) Urine Glucose (UA) (Negative) Urine Ketones (Negative) Urine Blood (Negative) Urine WBC (0-5) /hpf Urine Mucus (None) /hpf Ur Amphetamines Screen (NotDetected) 09/12/18 09/12/18 09/12/18 Range/Units 05:45 06:04 07:55 WBC (3.8-10.6) k/uL Hct (39.0-53.0) % MCV (80.0-100.0) fL MCHC (31.0-37.0) g/dL Neutrophils # (1.3-7.7) k/uL VBG pH (7.31-7.41) VBG pCO2 (37-51) mmHg VBG HCO3 (24-28) mmol/L Sodium 156 H (137-145) mmol/L Potassium (3.5-5.1) mmol/L Chloride 126 H (98-107) mmol/L Carbon Dioxide 16 L (22-30) mmol/L BUN 71 H (9-20) mg/dL Creatinine 3.28 H (0.66-1.25) mg/dL Glucose 921 H* (74-99) mg/dL POC Glucose (mg/dL) >600 H (75-99) mg/dL Osmolality (280-301) mosm/kg Plasma Lactic Acid Reinier (0.7-2.0) mmol/L Calcium (8.4-10.2) mg/dL Phosphorus (2.5-4.5) mg/dL Magnesium (1.6-2.3) mg/dL ALT (21-72) U/L Alkaline Phosphatase (38-126) U/L Urine Protein Trace H (Negative) Urine Glucose (UA) 4+ H (Negative) Urine Ketones 1+ H (Negative) Urine Blood Small H (Negative) Urine WBC 15 H (0-5) /hpf Urine Mucus Rare H (None) /hpf Ur Amphetamines Screen (NotDetected) 09/12/18 09/12/18 09/12/18 Range/Units 07:55 11:30 11:34 WBC (3.8-10.6) k/uL Hct (39.0-53.0) % MCV (80.0-100.0) fL MCHC (31.0-37.0) g/dL Neutrophils # (1.3-7.7) k/uL VBG pH (7.31-7.41) VBG pCO2 (37-51) mmHg VBG HCO3 (24-28) mmol/L Sodium 158 H (137-145) mmol/L Potassium (3.5-5.1) mmol/L Chloride 132 H* (98-107) mmol/L Carbon Dioxide 20 L (22-30) mmol/L BUN 64 H (9-20) mg/dL Creatinine 2.43 H (0.66-1.25) mg/dL Glucose 605 H* (74-99) mg/dL POC Glucose (mg/dL) 499 H (75-99) mg/dL Osmolality (280-301) mosm/kg Plasma Lactic Acid Reinier 2.3 H* (0.7-2.0) mmol/L Calcium (8.4-10.2) mg/dL Phosphorus (2.5-4.5) mg/dL Magnesium (1.6-2.3) mg/dL ALT (21-72) U/L Alkaline Phosphatase (38-126) U/L Urine Protein (Negative) Urine Glucose (UA) (Negative) Urine Ketones (Negative) Urine Blood (Negative) Urine WBC (0-5) /hpf Urine Mucus (None) /hpf Ur Amphetamines Screen (NotDetected) 09/12/18 09/12/18 09/12/18 Range/Units 12:13 13:01 14:22 WBC (3.8-10.6) k/uL Hct (39.0-53.0) % MCV (80.0-100.0) fL MCHC (31.0-37.0) g/dL Neutrophils # (1.3-7.7) k/uL VBG pH (7.31-7.41) VBG pCO2 (37-51) mmHg VBG HCO3 (24-28) mmol/L Sodium (137-145) mmol/L Potassium (3.5-5.1) mmol/L Chloride (98-107) mmol/L Carbon Dioxide (22-30) mmol/L BUN (9-20) mg/dL Creatinine (0.66-1.25) mg/dL Glucose (74-99) mg/dL POC Glucose (mg/dL) 469 H 403 H 399 H (75-99) mg/dL Osmolality (280-301) mosm/kg Plasma Lactic Acid Reinier (0.7-2.0) mmol/L Calcium (8.4-10.2) mg/dL Phosphorus (2.5-4.5) mg/dL Magnesium (1.6-2.3) mg/dL ALT (21-72) U/L Alkaline Phosphatase (38-126) U/L Urine Protein (Negative) Urine Glucose (UA) (Negative) Urine Ketones (Negative) Urine Blood (Negative) Urine WBC (0-5) /hpf Urine Mucus (None) /hpf Ur Amphetamines Screen (NotDetected) Microbiology - Last 24 Hours (Table) 09/12/18 05:45 Urine Culture - Preliminary Urine,Clean Catch Thrombosis Risk Factor Assmnt - DVT/VTE Prophylaxis DVT/VTE Prophylaxis: Pharmacologic Prophylaxis ordered - Choose All That Apply Any of the Below Risk Factors Present?: No Other Risk Factors: No Other congenital or acquired thrombophilia - If yes, enter type in comment: No Thrombosis Risk Factor Assessment Level: Very Low Risk Assessment and Plan Assessment: Altered mental status likely metabolic encephalopathy. CT head negative Acute diabetic ketoacidosis with new onset diabetes. Hypovolemic shock secondary to dehydration. Sepsis cannot be ruled out. blood pressure improved with IV hydration. Acute kidney injury most likely prerenal. New onset diabetes Severe anion gap metabolic acidosis Lactic acidosis 6.7 Hyperphosphatasemia Hyperosmolar hyperglycemia with serum osmolarity 457 UDS positive for amphetamines History of nicotine addiction and alcohol use GI and DVT prophylaxis Plan: Patient will be continued on aggressive hydration and continued on insulin drip. Repeat electrolytes every 4 hourly. Patient is being monitored closely in the MICU. Follow up blood cultures and urine cultures. Prognosis is guarded. Time with Patient: Greater than 30
[2018-09-13 00:54] LABS: Glucose,Whole Blood 242 mg/dL (75-99)
[2018-09-13] MEDS: DEXTROSE 5% IN WATER 1,000 ML IV SCH ×3 (00:57→08:23)
[2018-09-13 02:10] LABS: Glucose,Whole Blood 260 mg/dL (75-99)
[2018-09-13] MEDS: HEPARIN SODIUM,PORCINE 5,000 UNIT/ML 1 ML VIAL SQ SCH ×4 (02:11→23:59)
[2018-09-13 04:17] LABS: Glucose,Whole Blood 387 mg/dL (75-99)
[2018-09-13 05:02] LABS: Glucose,Whole Blood 312 mg/dL (75-99)
[2018-09-13] MEDS: INSULIN REGULAR 100 UNIT in SODIUM CHLORIDE 0.9% 100 ML IV SCH ×2 (05:34→16:12)
[2018-09-13 06:12] LABS: Basophils % (A) 0 %; Eosinophils # (A) 0.1 k/uL (0-0.7); Eosinophils % (A) 1 %; HCT 45.3 % (39.0-53.0); HGB 14.8 gm/dL (13.0-17.5); Lymphocytes # (A) 1.8 k/uL (1.0-4.8); Lymphocytes % (A) 17 %; MCH 30.1 pg (25.0-35.0); MCHC 32.8 g/dL (31.0-37.0); Monocytes # (A) 0.5 k/uL (0-1.0); Monocytes % (A) 5 %; Neutrophils # (A) 7.8 k/uL (1.3-7.7); Neutrophils % (A) 74 %; Platelet Count 123 k/uL (150-450); RBC 4.93 m/uL (4.30-5.90); WBC 10.4 k/uL (3.8-10.6)
[2018-09-13 06:25] LABS: Phosphorus 2.6 mg/dL (2.5-4.5); Potassium 3.7 mmol/L (3.5-5.1)
[2018-09-13 06:39] LABS: Glucose,Whole Blood 202 mg/dL (75-99)
[2018-09-13] MEDS ORDERED: Potassium Replacement Protocol 1 EACH MISC MISCELLANE PRN ×2 (06:52→15:59)
[2018-09-13 07:04] LABS: MCV 91.8 fL (80.0-100.0)
[2018-09-13 07:19] LABS: Glucose,Whole Blood 197 mg/dL (75-99)
[2018-09-13] MEDS: FAMOTIDINE 20 MG/2 ML VIAL IV SCH (08:18)
[2018-09-13] MEDS: POTASSIUM CHLORIDE 10 MEQ in WATER FOR INJECTION 1 100ML.BAG IVPB SCH ×4 (08:21→17:39)
[2018-09-13 08:34] LABS: Glucose,Whole Blood 175 mg/dL (75-99)
--- NOTE | 2018-09-13 09:27 | P.PN ---
Subjective Progress Note Date: 09/13/18 Principal diagnosis: Altered mental status, lactic acidosis, DKA This is a 38-year-old white male patient with no significant medical history, other than current history of smoking, some EtOH use, who was brought into the emergency department per EMS on all 09/11/2018 with unresponsiveness. Patient was accompanied by his mother who provided much of the history. This morning mary galvan is seen in the tensive care unit, and there is no family around, patient is still obtunded, not following command, but moving all [address] was done in the emergency department which was negative for acute intracranial process. Reportedly patient had not been feeling well over the last couple of weeks, has been having increased thirst, drinking more water and urinating more frequently. He spent all day in bed on Tuesday and Tuesday, he was not responding and EMS was called on Tuesday. Patient was profoundly hypotensive with a systolic blood pressure in the 50s. Blood work in the emergency department showed serum glucose at 1380, white blood cell count was 15.5, hemoglobin is 16.4, hematocrit was 57.5, patient was profoundly acidotic, with CO2 of 6, venous blood gas showed a bicarb of 11, pCO2 of 32, and pH of 7.18. Serum sodium is 139, potassium is 5.1, chloride is 93, anion gap was 40, BUN was 74, creatinine was 5.57, serum osmolality was elevated at 457, plasma lactic acid is 6.7, AST is 46, ALT was 103, alkaline phosphatase was 224, troponin was 0.015, urinalysis showed trace protein, 4+ glucose, 1+ ketones, no evidence of infection, urine drug screen showed amphetamines serum acetone was positive. Patient was given 2 L of 0.9 normal saline in the emergency department, he received another 2 L in the intensive care unit, insulin drip per DKA protocol has been initiated. This morning his blood work has been reviewed, shows a white blood cell count of 12.4, hemoglobin of 15.8, serum sodium is 156, potassium is 3.8, chloride is 126, CO2 16, anion gap is down to 14, B1 is 71, creatinine is 3.28, serum glucose is 921. Patient is currently on 0.9 normal saline at a rate of 200 ML per hour, insulin drip is at 8 units per hour, as no lactic acid is 2.3. Blood cultures and urine culture have been ordered and sent. Patient has been afebrile, chest x-ray was unremarkable. No evidence of consolidation or infiltrates. EKG showed sinus tachycardia with evidence of right atrial enlargement. Blood pressures recovered, and is not on any nasal pr essor support, blood pressure is 108/60, sinus tach at a rate of 116 BPM room air pulse ox is 95%. On 09/13/2018 patient seen again in follow-up in the intensive care unit, he is more awake today, opens eyes to voice, follows simple commands, moving all 4 extremities not verbalizing much right now. Vital signs are stable, room air pulse ox is 95%, no fever or chills, hemodynamically stable, less tachycardic, sinus rhythm on the monitor with a rate of 98 BPM. IV fluids D5W at a rate of 200 ML per hour, insulin drip is 7 a half units per hour. Denies any acute distress, no signs of respiratory distress. Today's labs have been reviewed, white blood cell count is 10.4, hemoglobin is 14.8, serum sodium is 159, potassium is 3.7, chloride is 131, CO2 is 21, anion gap is 7, BUN is 42, creatin ine is 1.45. Patient is nonoliguric, Fitzpatrick catheter is in place, patient is producing 100-225 ML per hour of urine output. Urine and blood cultures show no growth so far. Empiric antibiotic coverage in the form of Rocephin. Objective - Vital Signs Vital signs: Vital Signs Temp 99.2 F 09/13/18 04:00 Pulse 98 09/13/18 07:00 Resp 19 09/13/18 07:00 BP 110/67 09/13/18 07:00 Pulse Ox 95 09/13/18 07:00 Intake & Output 09/12/18 09/13/18 09/13/18 18:59 06:59 18:59 Intake Total 5615.700 2476.016 400 Output Total 3020 1045 150 Balance 2595.700 1431.016 250 Weight 79.56 kg 88.3 kg Intake: IV 4400 2000 400 Dextrose 5% in Water 1999 400 000 ml @ 200 mls/hr IV . Q5H [facility] Rx#:[id number] Sodium Chloride 0.9% 1, 400 000 ml @ 200 mls/hr IV . Q5H [facility] Rx#:[id number] Sodium Chloride 0.9% 1, 4000 000 ml @ 999 mls/hr IV . Q1H1M [facility] Rx#:[id number] Intake, IV Titration 1215.700 476.016 Amount D5-0.45% NaCl with KCl 400 20Meq/l 1,000 ml @ 200 mls/hr IV .Q5H [facility] Rx#: [id number] Dextrose 5% in Water 1, 1000 000 ml @ 200 mls/hr IV . Q5H [facility] Rx#:[id number] Insulin Regular 100 unit 115.700 76.016 In Sodium Chloride 0.9% 100 ml @ 0.1 UNITS/KG/HR 8.036 mls/hr IV .[id number] [facility] Rx#:[id number] Potassium Chloride 10 meq 100 In Water For Injection 1 100ml.bag @ 100 mls/hr IVPB Q1H [facility] Rx#: [id number] Output: Urine 3020 1045 150 Other: Voiding Method Indwelling Catheter Indwelling Catheter # Bowel Movements 1 - Exam GENERAL EXAM: 38 -year-old white male, following simple command, squeezing with his hands on command, moving all 4 extremities, comfortable in no apparent distress. HEAD: Normocephalic/atraumatic. EYES: Normal reaction of pupils, equal size. Conjunctiva pink, sclera white. NOSE: Clear with pink turbinates. THROAT: No erythema or exudates. MOUTH: Extremely dry mucous membranes NECK: No masses, no JVD, no thyroid enlargement, no adenopathy. CHEST: No chest wall deformity. Symmetrical expansion. LUNGS: Equal air entry with no crackles, wheeze, rhonchi or dullness. CVS: regular rate and rhythm, normal S1 and S2, no gallops, no murmurs, no rubs ABDOMEN: Soft, nontender. No hepatosplenomegaly, normal bowel sounds, no guarding or rigidity. EXTREMITIES: No clubbing, no edema, no cyanosis, 2+ pulses and upper and lower extremities. MUSCULOSKELETAL: Muscle strength and tone normal. SPINE: No scoliosis or deformity SKIN: No rashes CENTRAL NERVOUS SYSTEM: Awake and alert, opens eyes to voice, follows simple commands, does not verbalize Moving all 4 extremities - Labs CBC & Chem 7: 09/13/18 05:02 09/13/18 05:02 Labs: Abnormal Lab Results - Last 24 Hours (Table) 09/12/18 09/12/18 09/12/18 Range/Units 11:30 11:34 12:13 Plt Count (150-450) k/uL Neutrophils # (1.3-7.7) k/uL ABG pCO2 (35-45) mmHg ABG O2 Saturation (94-97) % Sodium 158 H (137-145) mmol/L Chloride 132 H* (98-107) mmol/L Carbon Dioxide 20 L (22-30) mmol/L BUN 64 H (9-20) mg/dL Creatinine 2.43 H (0.66-1.25) mg/dL Glucose 605 H* (74-99) mg/dL POC Glucose (mg/dL) 499 H 469 H (75-99) mg/dL Plasma Lactic Acid Reinier (0.7-2.0) mmol/L Magnesium (1.6-2.3) mg/dL 09/12/18 09/12/18 09/12/18 Range/Units 13:01 14:22 15:01 Plt Count (150-450) k/uL Neutrophils # (1.3-7.7) k/uL ABG pCO2 (35-45) mmHg ABG O2 Saturation (94-97) % Sodium 159 H (137-145) mmol/L Chloride 136 H* (98-107) mmol/L Carbon Dioxide 16 L (22-30) mmol/L BUN 55 H (9-20) mg/dL Creatinine 1.99 H (0.66-1.25) mg/dL Glucose 389 H (74-99) mg/dL POC Glucose (mg/dL) 403 H 399 H (75-99) mg/dL Plasma Lactic Acid Reinier (0.7-2.0) mmol/L Magnesium (1.6-2.3) mg/dL 09/12/18 09/12/18 09/12/18 Range/Units 15:01 15:27 16:11 Plt Count (150-450) k/uL Neutrophils # (1.3-7.7) k/uL ABG pCO2 (35-45) mmHg ABG O2 Saturation (94-97) % Sodium (137-145) mmol/L Chloride (98-107) mmol/L Carbon Dioxide (22-30) mmol/L BUN (9-20) mg/dL Creatinine (0.66-1.25) mg/dL Glucose (74-99) mg/dL POC Glucose (mg/dL) 322 H 296 H (75-99) mg/dL Plasma Lactic Acid Reinier 2.1 H* (0.7-2.0) mmol/L Magnesium (1.6-2.3) mg/dL 09/12/18 09/12/18 09/12/18 Range/Units 17:20 18:20 18:53 Plt Count (150-450) k/uL Neutrophils # (1.3-7.7) k/uL ABG pCO2 (35-45) mmHg ABG O2 Saturation (94-97) % Sodium 161 H* (137-145) mmol/L Chloride 137 H* (98-107) mmol/L Carbon Dioxide 17 L (22-30) mmol/L BUN 51 H (9-20) mg/dL Creatinine 1.85 H (0.66-1.25) mg/dL Glucose 142 H (74-99) mg/dL POC Glucose (mg/dL) 252 H 182 H (75-99) mg/dL Plasma Lactic Acid Reinier (0.7-2.0) mmol/L Magnesium (1.6-2.3) mg/dL 09/12/18 09/12/18 09/12/18 Range/Units 18:56 20:23 22:11 Plt Count (150-450) k/uL Neutrophils # (1.3-7.7) k/uL ABG pCO2 33 L (35-45) mmHg ABG O2 Saturation 98.1 H (94-97) % Sodium (137-145) mmol/L Chloride (98-107) mmol/L Carbon Dioxide (22-30) mmol/L BUN (9-20) mg/dL Creatinine (0.66-1.25) mg/dL Glucose (74-99) mg/dL POC Glucose (mg/dL) 143 H 114 H (75-99) mg/dL Plasma Lactic Acid Reinier (0.7-2.0) mmol/L Magnesium (1.6-2.3) mg/dL 09/13/18 09/13/18 09/13/18 Range/Units 00:52 02:07 04:05 Plt Count (150-450) k/uL Neutrophils # (1.3-7.7) k/uL ABG pCO2 (35-45) mmHg ABG O2 Saturation (94-97) % Sodium (137-145) mmol/L Chloride (98-107) mmol/L Carbon Dioxide (22-30) mmol/L BUN (9-20) mg/dL Creatinine (0.66-1.25) mg/dL Glucose (74-99) mg/dL POC Glucose (mg/dL) 242 H 260 H 387 H (75-99) mg/dL Plasma Lactic Acid Reinier (0.7-2.0) mmol/L Magnesium (1.6-2.3) mg/dL 09/13/18 09/13/18 09/13/18 Range/Units 04:59 05:02 05:02 Plt Count 123 L (150-450) k/uL Neutrophils # 7.8 H (1.3-7.7) k/uL ABG pCO2 (35-45) mmHg ABG O2 Saturation (94-97) % Sodium 159 H (137-145) mmol/L Chloride 131 H* (98-107) mmol/L Carbon Dioxide 21 L (22-30) mmol/L BUN 42 H (9-20) mg/dL Creatinine 1.45 H (0.66-1.25) mg/dL Glucose 235 H (74-99) mg/dL POC Glucose (mg/dL) 312 H (75-99) mg/dL Plasma Lactic Acid Reinier (0.7-2.0) mmol/L Magnesium 3.0 H (1.6-2.3) mg/dL 09/13/18 09/13/18 09/13/18 Range/Units 06:15 07:05 08:20 Plt Count (150-450) k/uL Neutrophils # (1.3-7.7) k/uL ABG pCO2 (35-45) mmHg ABG O2 Saturation (94-97) % Sodium (137-145) mmol/L Chloride (98-107) mmol/L Carbon Dioxide (22-30) mmol/L BUN (9-20) mg/dL Creatinine (0.66-1.25) mg/dL Glucose (74-99) mg/dL POC Glucose (mg/dL) 202 H 197 H 175 H (75-99) mg/dL Plasma Lactic Acid Reinier (0.7-2.0) mmol/L Magnesium (1.6-2.3) mg/dL Microbiology - Last 24 Hours (Table) 09/12/18 02:54 Blood Culture - Preliminary Blood No Growth after 24 hours 09/12/18 05:45 Urine Culture - Preliminary Urine,Clean Catch Assessment and Plan Plan: Assessment: #1. Acute mental status, likely related to severe dehydration, electrolyte abnormality, DKA. Brain CT did not show any acute intracranial process. Repeat CT of the brain on 09/12/2018 did not show any acute process #2. Diabetic ketoacidosis #3. Hypovolemic shock, likely related to severe dehydration, rule out sepsis #4. Hypernatremia #5. Anion gap metabolic acidosis related to lactic acidosis and DKA #6. Newly diagnosed diabetes mellitus, presented with DKA #7. History of nicotine dependence #8. EtOH use, the frequency and amount is unknown #9. Drug screen positive for amphetamines Plan: Continue current IV fluids to D5W at a rate of 200 ML per hour, serum sodium is trending down, patient's mentation is improving, she is opening eyes to command, able to follow simple command. Hemodynamically patient is stable, no fever or chills, we'll send a pro-calcitonin level, patient has been placed on empiric antibiotics, cultures remain negative thus far. We'll continue insulin i nfusion. The anion gap has closed, there is improvement in patient's renal profile, and the degree of metabolic acidosis. Patient will remain the intensive care unit, we'll continue to closely follow. I performed a history & physical examination of the patient and discussed their management with my nurse practitioner, Emili Banks. I reviewed the nurse practitioner's note and agree with the documented findings and plan of care. Lung sounds are positive for clear breath sounds. The findings and the impression was discussed with the patient. I attest to the documentation by the nurse practitioner. Time with Patient: Greater than 30
[2018-09-13 09:33] LABS: Glucose,Whole Blood 135 mg/dL (75-99)
[2018-09-13 10:06] LABS: Glucose,Whole Blood 140 mg/dL (75-99)
[2018-09-13] MEDS ORDERED: BISACODYL 10 MG SUPP RECTAL STA (10:57)
[2018-09-13] MEDS ORDERED: LORazepam 2 MG/ML INJ IV STA (10:58)
[2018-09-13 11:39] LABS: Glucose,Whole Blood 146 mg/dL (75-99)
[2018-09-13] MEDS: D5W WITH KCL 20 MEQ/L 1,000 ML IV SCH ×4 (11:59→23:59)
[2018-09-13 12:12] LABS: Glucose,Whole Blood 168 mg/dL (75-99)
[2018-09-13 13:27] LABS: Glucose,Whole Blood 172 mg/dL (75-99)
[2018-09-13 14:11] LABS: Prothrombin Time 9.3 sec (9.0-12.0)
[2018-09-13 14:12] LABS: INR 0.8 (<1.2); Partial Thromboplastin Time 22.2 sec (22.0-30.0)
[2018-09-13 14:19] LABS: Glucose,Whole Blood 212 mg/dL (75-99)
[2018-09-13 15:20] LABS: Glucose,Whole Blood 215 mg/dL (75-99)
[2018-09-13 16:25] LABS: Glucose,Whole Blood 222 mg/dL (75-99)
[2018-09-13] MEDS ORDERED: D5W WITH KCL 20 MEQ/L 1,000 ML IV SCH (16:30)
[2018-09-13 17:11] LABS: Glucose,Whole Blood 196 mg/dL (75-99)
[2018-09-13 18:12] LABS: Glucose,Whole Blood 177 mg/dL (75-99)
[2018-09-13 19:05] LABS: Glucose,Whole Blood 174 mg/dL (75-99)
[2018-09-13 20:03] LABS: Glucose,Whole Blood 187 mg/dL (75-99)
[2018-09-13 20:24] LABS: Hemoglobin A1C 15.4 % (4.0-6.0)
[2018-09-13 21:01] LABS: Glucose,Whole Blood 187 mg/dL (75-99)
[2018-09-13 22:07] LABS: Glucose,Whole Blood 209 mg/dL (75-99)
[2018-09-13 23:21] LABS: Glucose,Whole Blood 217 mg/dL (75-99)
[2018-09-14 00:06] LABS: Glucose,Whole Blood 220 mg/dL (75-99)
--- NOTE | 2018-09-14 00:31 | P.PN ---
Subjective Progress Note Date: 09/13/18 Principal diagnosis: Acute diabetic ketoacidosis Altered mental status Patient is a 38-year-old male without significant past medical history was brought to the hospital by ambulance as the patient was found unresponsive. Patient cannot provide any history at this time. As per the ER note patient has not been feeling well for the last 2-3 weeks with increased thirst and frequent urination. Patient has been increasingly lethargic and confused during the weekend and not responsive today. EMS was called and that time.. Patient was hypotensive with SBP in 50s when he came to ER. Currently blood pressure is improved. Blood glucose was 1380 in the ER. Patient was having metabolic acidosis with pH level 7.18 and bicarb level of 6. Serum osmolality 457 BUN 74 Creatinine 5.57 lactic acid6.7 and anion gap 40 slightly elevated liver enzymes. Phosphorus 10.3 UDS is positive for amphetamines UA showed trace protein, 4+ glucose, 1+ ketones. Acetone positive Chest x-ray showed no acute cardiopulmonary process CT head showed no evidence of acute intracranial process. EKG showed sinus tachycardia 09/13/2018 Patient is currently in the MICU. Patient is awake and alert and moving in the bed. Able to follow simple commands. Otherwise DKA has resolved and and Close d. Patient still hyponatremic with sodium level 159 today. Currently being continued on D5 water. Continued on insulin drip. Blood sugar is fairly controlled. Saturating well on nasal cannula. No fever no chills. Renal function improved with creatinine level I.45. Blood cultures and urine culture showed no growth so far. Patient denied any complains of chest pain. Complete review of systems could not be obtained from the patient. Repeat computed tomography scan showed no evidence of acute intracranial process. Current medications reviewed. Objective - Vital Signs Vital signs: Vital Signs Temp 98.3 F 09/13/18 16:00 Pulse 98 09/13/18 19:00 Resp 14 09/13/18 19:00 BP 128/83 09/13/18 19:00 Pulse Ox 95 09/13/18 19:00 Intake & Output 09/13/18 09/13/18 09/14/18 06:59 18:59 06:59 Intake Total 2476.016 2387.575 150 Output Total 1045 910 65 Balance 6686.204 5903.575 85 Weight 88.3 kg Intake: IV 2000 2350 150 D5w with KCl 20 Meq/l 1, 1350 150 000 ml @ 150 mls/hr IV . Q6H40M [facility] Rx#:[id number] Dextrose 5% in Water 1, 1999 600 000 ml @ 200 mls/hr IV . Q5H [facility] Rx#:[id number] Potassium Chloride 10 meq 400 In Water For Injection 1 100ml.bag @ 100 mls/hr IVPB Q1H [facility] Rx#: [id number] Intake, IV Titration 476.016 37.575 Amount D5-0.45% NaCl with KCl 400 20Meq/l 1,000 ml @ 200 mls/hr IV .Q5H [facility] Rx#: [id number] Insulin Regular 100 unit 76.016 37.575 In Sodium Chloride 0.9% 100 ml @ 0.1 UNITS/KG/HR 8.036 mls/hr IV .[id number] [facility] Rx#:[id number] Output: Urine 1045 910 65 Other: Voiding Method Indwelling Catheter Indwelling Catheter # Bowel Movements 1 7 - Exam PHYSICAL EXAMINATION: Patient is awake alert and moving all extremities while in the bed. Follow simple commands.. Saturating well on nasal cannula.. HEENT: Normocephalic. Neck is supple. Pupils reactive. Nostrils clear. Oral cavity is moist. Ears reveal no drainage. Neck reveals no JVD, carotid bruits, or thyromegaly. CHEST EXAMINATION: Trachea is central. Symmetrical expansion. Lung troncoso clear to auscultation and percussion. CARDIAC: Normal S1, S2 with no gallops. No murmurs ABDOMEN: Soft. Nontender. Bowel sounds normal. No organomegaly. No abdominal bruits. Extremities: reveal no edema. No clubbing or cyanosis Neurologically patient is confused and lethargic. No gross focal deficits noted Skin: No rash or skin lesions. Psychiatric: Could not be assessed Musculoskeletal: No joint swelling or deformity. Normal range of motion. - Labs CBC & Chem 7: 09/13/18 05:02 09/13/18 14:32 Labs: Abnormal Lab Results - Last 24 Hours (Table) 09/12/18 09/12/18 09/13/18 Range/Units 20:23 22:11 00:52 Plt Count (150-450) k/uL Neutrophils # (1.3-7.7) k/uL ABG pCO2 33 L (35-45) mmHg ABG O2 Saturation 98.1 H (94-97) % Sodium (137-145) mmol/L Chloride (98-107) mmol/L Carbon Dioxide (22-30) mmol/L BUN (9-20) mg/dL Creatinine (0.66-1.25) mg/dL Glucose (74-99) mg/dL POC Glucose (mg/dL) 114 H 242 H (75-99) mg/dL Magnesium (1.6-2.3) mg/dL Procalcitonin (0.02-0.09) ng/mL 09/13/18 09/13/18 09/13/18 Range/Units 02:07 04:05 04:59 Plt Count (150-450) k/uL Neutrophils # (1.3-7.7) k/uL ABG pCO2 (35-45) mmHg ABG O2 Saturation (94-97) % Sodium (137-145) mmol/L Chloride (98-107) mmol/L Carbon Dioxide (22-30) mmol/L BUN (9-20) mg/dL Creatinine (0.66-1.25) mg/dL Glucose (74-99) mg/dL POC Glucose (mg/dL) 260 H 387 H 312 H (75-99) mg/dL Magnesium (1.6-2.3) mg/dL Procalcitonin (0.02-0.09) ng/mL 09/13/18 09/13/18 09/13/18 Range/Units 05:02 05:02 05:02 Plt Count 123 L (150-450) k/uL Neutrophils # 7.8 H (1.3-7.7) k/uL ABG pCO2 (35-45) mmHg ABG O2 Saturation (94-97) % Sodium 159 H (137-145) mmol/L Chloride 131 H* (98-107) mmol/L Carbon Dioxide 21 L (22-30) mmol/L BUN 42 H (9-20) mg/dL Creatinine 1.45 H (0.66-1.25) mg/dL Glucose 235 H (74-99) mg/dL POC Glucose (mg/dL) (75-99) mg/dL Magnesium 3.0 H (1.6-2.3) mg/dL Procalcitonin 8.80 H (0.02-0.09) ng/mL 09/13/18 09/13/18 09/13/18 Range/Units 06:15 07:05 08:20 Plt Count (150-450) k/uL Neutrophils # (1.3-7.7) k/uL ABG pCO2 (35-45) mmHg ABG O2 Saturation (94-97) % Sodium (137-145) mmol/L Chloride (98-107) mmol/L Carbon Dioxide (22-30) mmol/L BUN (9-20) mg/dL Creatinine (0.66-1.25) mg/dL Glucose (74-99) mg/dL POC Glucose (mg/dL) 202 H 197 H 175 H (75-99) mg/dL Magnesium (1.6-2.3) mg/dL Procalcitonin (0.02-0.09) ng/mL 09/13/18 09/13/18 09/13/18 Range/Units 09:20 10:03 11:25 Plt Count (150-450) k/uL Neutrophils # (1.3-7.7) k/uL ABG pCO2 (35-45) mmHg ABG O2 Saturation (94-97) % Sodium (137-145) mmol/L Chloride (98-107) mmol/L Carbon Dioxide (22-30) mmol/L BUN (9-20) mg/dL Creatinine (0.66-1.25) mg/dL Glucose (74-99) mg/dL POC Glucose (mg/dL) 135 H 140 H 146 H (75-99) mg/dL Magnesium (1.6-2.3) mg/dL Procalcitonin (0.02-0.09) ng/mL 09/13/18 09/13/18 09/13/18 Range/Units 12:10 13:01 14:08 Plt Count (150-450) k/uL Neutrophils # (1.3-7.7) k/uL ABG pCO2 (35-45) mmHg ABG O2 Saturation (94-97) % Sodium (137-145) mmol/L Chloride (98-107) mmol/L Carbon Dioxide (22-30) mmol/L BUN (9-20) mg/dL Creatinine (0.66-1.25) mg/dL Glucose (74-99) mg/dL POC Glucose (mg/dL) 168 H 172 H 212 H (75-99) mg/dL Magnesium (1.6-2.3) mg/dL Procalcitonin (0.02-0.09) ng/mL 09/13/18 09/13/18 09/13/18 Range/Units 15:18 16:11 17:09 Plt Count (150-450) k/uL Neutrophils # (1.3-7.7) k/uL ABG pCO2 (35-45) mmHg ABG O2 Saturation (94-97) % Sodium (137-145) mmol/L Chloride (98-107) mmol/L Carbon Dioxide (22-30) mmol/L BUN (9-20) mg/dL Creatinine (0.66-1.25) mg/dL Glucose (74-99) mg/dL POC Glucose (mg/dL) 215 H 222 H 196 H (75-99) mg/dL Magnesium (1.6-2.3) mg/dL Procalcitonin (0.02-0.09) ng/mL 09/13/18 09/13/18 Range/Units 18:09 19:03 Plt Count (150-450) k/uL Neutrophils # (1.3-7.7) k/uL ABG pCO2 (35-45) mmHg ABG O2 Saturation (94-97) % Sodium (137-145) mmol/L Chloride (98-107) mmol/L Carbon Dioxide (22-30) mmol/L BUN (9-20) mg/dL Creatinine (0.66-1.25) mg/dL Glucose (74-99) mg/dL POC Glucose (mg/dL) 177 H 174 H (75-99) mg/dL Magnesium (1.6-2.3) mg/dL Procalcitonin (0.02-0.09) ng/mL Microbiology - Last 24 Hours (Table) 09/12/18 05:45 Urine Culture - Final Urine,Clean Catch 09/12/18 02:54 Blood Culture - Preliminary Blood No Growth after 24 hours Assessment and Plan Assessment: Altered mental status likely metabolic encephalopathy. CT head negative x2 Acute diabetic ketoacidosis with new onset diabetes. Hypovolemic shock secondary to dehydration. Sepsis cannot be ruled out. blood pressure improved with IV hydration. Hyponatremia Acute kidney injury most likely prerenal. New onset diabetes Severe anion gap metabolic acidosis Lactic acidosis 6.7 Hyperphosphatasemia Hyperosmolar hyperglycemia with serum osmolarity 457 UDS positive for amphetamines History of nicotine addiction and alcohol use GI and DVT prophylaxis Plan: Patient will be continued on aggressive hydration and continued on insulin drip. DKA has resolved. Currently on D5 water.. Patient is being monitored closely in the MICU. Follow up blood cultures and urine cultures. Prognosis is guarded. Time with Patient: Greater than 30
[2018-09-14 01:19] LABS: Glucose,Whole Blood 231 mg/dL (75-99)
[2018-09-14 02:20] LABS: Glucose,Whole Blood 277 mg/dL (75-99)
[2018-09-14 03:27] LABS: Glucose,Whole Blood 248 mg/dL (75-99)
[2018-09-14] MEDS: INSULIN REGULAR 100 UNIT in SODIUM CHLORIDE 0.9% 100 ML IV SCH (04:00)
[2018-09-14 05:17] LABS: Glucose,Whole Blood 224 mg/dL (75-99)
[2018-09-14 06:15] LABS: Glucose,Whole Blood 230 mg/dL (75-99)
[2018-09-14 06:27] LABS: Basophils % (A) 0 %; Eosinophils # (A) 0.2 k/uL (0-0.7); Eosinophils % (A) 3 %; HCT 38.6 % (39.0-53.0); HGB 13.3 gm/dL (13.0-17.5); Lymphocytes % (A) 26 %; MCH 31.2 pg (25.0-35.0); MCHC 34.6 g/dL (31.0-37.0); MCV 90.2 fL (80.0-100.0); Mean Platelet Volume 9.3; Monocytes # (A) 0.3 k/uL (0-1.0); Monocytes % (A) 4 %; Neutrophils % (A) 65 %; Platelet Count 111 k/uL (150-450); RBC 4.27 m/uL (4.30-5.90); RDW 13.5 % (11.5-15.5); WBC 7.7 k/uL (3.8-10.6)
[2018-09-14] MEDS: D5W WITH KCL 20 MEQ/L 1,000 ML IV SCH (06:29)
[2018-09-14 06:54] LABS: Anion Gap 6 mmol/L; Blood Urea Nitrogen 21 mg/dL (9-20); Calcium 9.2 mg/dL (8.4-10.2); Carbon Dioxide 22 mmol/L (22-30); Chloride 125 mmol/L (98-107); Glucose 238 mg/dL (74-99); Potassium 3.8 mmol/L (3.5-5.1); Sodium 153 mmol/L (137-145)
[2018-09-14] MEDS ORDERED: Potassium Replacement Protocol 1 EACH MISC MISCELLANE PRN (06:57)
[2018-09-14 07:10] LABS: Glucose,Whole Blood 220 mg/dL (75-99)
[2018-09-14 08:24] LABS: Glucose,Whole Blood 217 mg/dL (75-99)
[2018-09-14] MEDS: FAMOTIDINE 20 MG/2 ML VIAL IV SCH (08:25)
[2018-09-14] MEDS: HEPARIN SODIUM,PORCINE 5,000 UNIT/ML 1 ML VIAL SQ SCH ×2 (08:25→15:29)
[2018-09-14] MEDS: POTASSIUM CHLORIDE 10 MEQ in WATER FOR INJECTION 1 100ML.BAG IVPB SCH ×2 (08:40→08:46)
--- NOTE | 2018-09-14 09:52 | P.PN ---
Subjective Progress Note Date: 09/14/18 Principal diagnosis: Altered mental status, lactic acidosis, DKA This is a 38-year-old white male patient with no significant medical history, other than current history of smoking, some EtOH use, who was brought into the emergency department per EMS on all 09/11/2018 with unresponsiveness. Patient was accompanied by his mother who provided much of the history. This morning mary galvan is seen in the tensive care unit, and there is no family around, patient is still obtunded, not following command, but moving all [address] was done in the emergency department which was negative for acute intracranial process. Reportedly patient had not been feeling well over the last couple of weeks, has been having increased thirst, drinking more water and urinating more frequently. He spent all day in bed on Tuesday and Tuesday, he was not responding and EMS was called on Tuesday. Patient was profoundly hypotensive with a systolic blood pressure in the 50s. Blood work in the emergency department showed serum glucose at 1380, white blood cell count was 15.5, hemoglobin is 16.4, hematocrit was 57.5, patient was profoundly acidotic, with CO2 of 6, venous blood gas showed a bicarb of 11, pCO2 of 32, and pH of 7.18. Serum sodium is 139, potassium is 5.1, chloride is 93, anion gap was 40, BUN was 74, creatinine was 5.57, serum osmolality was elevated at 457, plasma lactic acid is 6.7, AST is 46, ALT was 103, alkaline phosphatase was 224, troponin was 0.015, urinalysis showed trace protein, 4+ glucose, 1+ ketones, no evidence of infection, urine drug screen showed amphetamines serum acetone was positive. Patient was given 2 L of 0.9 normal saline in the emergency department, he received another 2 L in the intensive care unit, insulin drip per DKA protocol has been initiated. This morning his blood work has been reviewed, shows a white blood cell count of 12.4, hemoglobin of 15.8, serum sodium is 156, potassium is 3.8, chloride is 126, CO2 16, anion gap is down to 14, B1 is 71, creatinine is 3.28, serum glucose is 921. Patient is currently on 0.9 normal saline at a rate of 200 ML per hour, insulin drip is at 8 units per hour, as no lactic acid is 2.3. Blood cultures and urine culture have been ordered and sent. Patient has been afebrile, chest x-ray was unremarkable. No evidence of consolidation or infiltrates. EKG showed sinus tachycardia with evidence of right atrial enlargement. Blood pressures recovered, and is not on any nasal pr essor support, blood pressure is 108/60, sinus tach at a rate of 116 BPM room air pulse ox is 95%. On 09/13/2018 patient seen again in follow-up in the intensive care unit, he is more awake today, opens eyes to voice, follows simple commands, moving all 4 extremities not verbalizing much right now. Vital signs are stable, room air pulse ox is 95%, no fever or chills, hemodynamically stable, less tachycardic, sinus rhythm on the monitor with a rate of 98 BPM. IV fluids D5W at a rate of 200 ML per hour, insulin drip is 7 a half units per hour. Denies any acute distress, no signs of respiratory distress. Today's labs have been reviewed, white blood cell count is 10.4, hemoglobin is 14.8, serum sodium is 159, potassium is 3.7, chloride is 131, CO2 is 21, anion gap is 7, BUN is 42, creatin ine is 1.45. Patient is nonoliguric, Fitzpatrick catheter is in place, patient is producing 100-225 ML per hour of urine output. Urine and blood cultures show no growth so far. Empiric antibiotic coverage in the form of Rocephin. On 09/14/2018 patient seen in follow-up in the intensive care unit, he is much more awake, oriented 3, conversant. Responding appropriately, no signs of delirium, room air pulse ox is 96%, patient is afebrile, hemodynamically patient is stable. No specific complaints, today's labs have been reviewed, and showed a white blood cell count is 7.7, hemoglobin of 13.3, serum sodium is coming down, down to 153 from 159, potassium is 3.8, chloride is 125, B1 is 21 and cre atinine 0.94. Blood and urine cultures are negative. Objective - Vital Signs Vital signs: Vital Signs Temp 98.1 F 09/13/18 20:00 Pulse 79 09/14/18 07:00 Resp 18 09/14/18 07:00 BP 128/75 09/14/18 07:00 Pulse Ox 96 09/14/18 07:00 Intake & Output 09/13/18 09/14/18 09/14/18 18:59 06:59 18:59 Intake Total 2387.575 1872.8 150 Output Total 910 1020 125 Balance 1477.575 852.8 25 Weight 86.9 kg Intake: IV 2350 1800 150 D5w with KCl 20 Meq/l 1, 1350 1800 150 000 ml @ 150 mls/hr IV . Q6H40M NARGIS Rx#:[id number] Dextrose 5% in Water 1, 600 000 ml @ 200 mls/hr IV . Q5H NARGIS Rx#:[id number] Potassium Chloride 10 meq 400 In Water For Injection 1 100ml.bag @ 100 mls/hr IVPB Q1H NARGIS Rx#: [id number] Intake, IV Titration 37.575 72.8 Amount Insulin Regular 100 unit 37.575 72.8 In Sodium Chloride 0.9% 100 ml @ 0.1 UNITS/KG/HR 8.036 mls/hr IV .[id number] NARGIS Rx#:[id number] Output: Urine 910 1020 125 Other: Voiding Method Indwelling Catheter Indwelling Catheter # Bowel Movements 7 - Exam GENERAL EXAM: 38 -year-old white male, following command, awake and alert and oriented 3 moving all 4 extremities, comfortable in no apparent distress. HEAD: Normocephalic/atraumatic. EYES: Normal reaction of pupils, equal size. Conjunctiva pink, sclera white. NOSE: Clear with pink turbinates. THROAT: No erythema or exudates. MOUTH: Extremely dry mucous membranes NECK: No masses, no JVD, no thyroid enlargement, no adenopathy. CHEST: No chest wall deformity. Symmetrical expansion. LUNGS: Equal air entry with no crackles, wheeze, rhonchi or dullness. CVS: regular rate and rhythm, normal S1 and S2, no gallops, no murmurs, no rubs ABDOMEN: Soft, nontender. No hepatosplenomegaly, normal bowel sounds, no g uarding or rigidity. EXTREMITIES: No clubbing, no edema, no cyanosis, 2+ pulses and upper and lower extremities. MUSCULOSKELETAL: Muscle strength and tone normal. SPINE: No scoliosis or deformity SKIN: No rashes CENTRAL NERVOUS SYSTEM: Awake and alert, oriented 3, responds appropriately Moving all 4 extremities - Labs CBC & Chem 7: 09/14/18 05:11 09/14/18 05:11 Labs: Abnormal Lab Results - Last 24 Hours (Table) 09/13/18 09/13/18 09/13/18 Range/Units 05:02 05:02 10:03 RBC (4.30-5.90) m/uL Hct (39.0-53.0) % Plt Count (150-450) k/uL Sodium (137-145) mmol/L Chloride (98-107) mmol/L BUN (9-20) mg/dL Glucose (74-99) mg/dL POC Glucose (mg/dL) 140 H (75-99) mg/dL Hemoglobin A1c 15.4 H (4.0-6.0) % Procalcitonin 8.80 H (0.02-0.09) ng/mL 09/13/18 09/13/18 09/13/18 Range/Units 11:25 12:10 13:01 RBC (4.30-5.90) m/uL Hct (39.0-53.0) % Plt Count (150-450) k/uL Sodium (137-145) mmol/L Chloride (98-107) mmol/L BUN (9-20) mg/dL Glucose (74-99) mg/dL POC Glucose (mg/dL) 146 H 168 H 172 H (75-99) mg/dL Hemoglobin A1c (4.0-6.0) % Procalcitonin (0.02-0.09) ng/mL 09/13/18 09/13/18 09/13/18 Range/Units 14:08 15:18 16:11 RBC (4.30-5.90) m/uL Hct (39.0-53.0) % Plt Count (150-450) k/uL Sodium (137-145) mmol/L Chloride (98-107) mmol/L BUN (9-20) mg/dL Glucose (74-99) mg/dL POC Glucose (mg/dL) 212 H 215 H 222 H (75-99) mg/dL Hemoglobin A1c (4.0-6.0) % Procalcitonin (0.02-0.09) ng/mL 09/13/18 09/13/18 09/13/18 Range/Units 17:09 18:09 19:03 RBC (4.30-5.90) m/uL Hct (39.0-53.0) % Plt Count (150-450) k/uL Sodium (137-145) mmol/L Chloride (98-107) mmol/L BUN (9-20) mg/dL Glucose (74-99) mg/dL POC Glucose (mg/dL) 196 H 177 H 174 H (75-99) mg/dL Hemoglobin A1c (4.0-6.0) % Procalcitonin (0.02-0.09) ng/mL 09/13/18 09/13/18 09/13/18 Range/Units 20:01 20:59 22:03 RBC (4.30-5.90) m/uL Hct (39.0-53.0) % Plt Count (150-450) k/uL Sodium (137-145) mmol/L Chloride (98-107) mmol/L BUN (9-20) mg/dL Glucose (74-99) mg/dL POC Glucose (mg/dL) 187 H 187 H 209 H (75-99) mg/dL Hemoglobin A1c (4.0-6.0) % Procalcitonin (0.02-0.09) ng/mL 09/13/18 09/14/18 09/14/18 Range/Units 23:08 00:03 01:17 RBC (4.30-5.90) m/uL Hct (39.0-53.0) % Plt Count (150-450) k/uL Sodium (137-145) mmol/L Chloride (98-107) mmol/L BUN (9-20) mg/dL Glucose (74-99) mg/dL POC Glucose (mg/dL) 217 H 220 H 231 H (75-99) mg/dL Hemoglobin A1c (4.0-6.0) % Procalcitonin (0.02-0.09) ng/mL 09/14/18 09/14/18 09/14/18 Range/Units 02:05 03:24 05:00 RBC (4.30-5.90) m/uL Hct (39.0-53.0) % Plt Count (150-450) k/uL Sodium (137-145) mmol/L Chloride (98-107) mmol/L BUN (9-20) mg/dL Glucose (74-99) mg/dL POC Glucose (mg/dL) 277 H 248 H 224 H (75-99) mg/dL Hemoglobin A1c (4.0-6.0) % Procalcitonin (0.02-0.09) ng/mL 09/14/18 09/14/18 09/14/18 Range/Units 05:11 05:11 06:11 RBC 4.27 L (4.30-5.90) m/uL Hct 38.6 L (39.0-53.0) % Plt Count 111 L (150-450) k/uL Sodium 153 H (137-145) mmol/L Chloride 125 H (98-107) mmol/L BUN 21 H (9-20) mg/dL Glucose 238 H (74-99) mg/dL POC Glucose (mg/dL) 230 H (75-99) mg/dL Hemoglobin A1c (4.0-6.0) % Procalcitonin (0.02-0.09) ng/mL 09/14/18 09/14/18 Range/Units 07:09 08:22 RBC (4.30-5.90) m/uL Hct (39.0-53.0) % Plt Count (150-450) k/uL Sodium (137-145) mmol/L Chloride (98-107) mmol/L BUN (9-20) mg/dL Glucose (74-99) mg/dL POC Glucose (mg/dL) 220 H 217 H (75-99) mg/dL Hemoglobin A1c (4.0-6.0) % Procalcitonin (0.02-0.09) ng/mL Microbiology - Last 24 Hours (Table) 09/12/18 02:54 Blood Culture - Preliminary Blood No Growth after 48 hours 09/12/18 05:45 Urine Culture - Final Urine,Clean Catch Assessment and Plan Plan: Assessment: #1. Acute mental status, likely related to severe dehydration, electrolyte abnormality, DKA. Brain CT did not show any acute intracranial process. Repeat CT of the brain on 09/12/2018 did not show any acute process. Recovered #2. Diabetic ketoacidosis #3. Hypovolemic shock, likely related to severe dehydration, sepsis has been ruled out, blood and urine cultures are negative. No leukocytosis, no fever or chills #4. Hypernatremia, improving with aggressive fluid resuscitation #5. Anion gap metabolic acidosis related to lactic acidosis and DKA, recovered #6. Newly diagnosed diabetes mellitus, presented with DKA #7. History of nicotine dependence #8. EtOH use, 8 beers per week #9. Drug screen positive for amphetamines Plan: Patient will have a bedside swallow evaluation, he is able to tolerate oral intake, and take fluids by mouth we will discontinue his IV fluids, today's labs have been reviewed, his electrolyte abnormalities continue to improve, serum sodium is down to 153, serum chloride is coming down, profile has recovered. Mental status has significantly improved, back to baseline, patient is awake and alert and oriented 3, responding appropriately. We will transition the insulin fusion to subcutaneous NovoLog. We'll consult diabetic education. Patient is stable to transfer out of the intensive care unit today. He will need referral for primary care physician in the area possibly Dr. Angela or Dr. Murphy, he currently does not have a primary care physician. I performed a history & physical examination of the patient and discussed their management with my nurse practitioner, Emili Banks. I reviewed the nurse practitioner's note and agree with the documented findings and plan of care. Lung sounds are positive for clear breath sounds. The findings and the impression was discussed with the patient. I attest to the documentation by the nurse practitioner. Time with Patient: Less than 30
[2018-09-14 11:44] LABS: Glucose,Whole Blood 254 mg/dL (75-99)
[2018-09-14] MEDS: INSULIN ASPART (NovoLOG) 100 UNIT/ML VIAL SQ SCH ×3 (12:16→21:02)
[2018-09-14 13:12] VITALS: BMI 26.7
[2018-09-14 17:05] LABS: Glucose,Whole Blood 303 mg/dL (75-99)
[2018-09-14] MEDS ORDERED: INSULN ASP PRT/INSULIN ASPART 100 UNIT/ML 10 ML VIAL SQ SCH (17:30)
[2018-09-14 20:52] LABS: Glucose,Whole Blood 286 mg/dL (75-99)
[2018-09-14] MEDS: FAMOTIDINE 20 MG TAB PO SCH (21:02)
[2018-09-15 02:06] LABS: Glucose,Whole Blood 284 mg/dL (75-99)
[2018-09-15] MEDS: INSULIN ASPART (NovoLOG) 100 UNIT/ML VIAL SQ SCH ×5 (02:11→21:04)
[2018-09-15] MEDS: HEPARIN SODIUM,PORCINE 5,000 UNIT/ML 1 ML VIAL SQ SCH ×4 (02:11→23:37)
[2018-09-15 07:04] LABS: Glucose,Whole Blood 261 mg/dL (75-99)
[2018-09-15] MEDS ORDERED: INSULN ASP PRT/INSULIN ASPART 100 UNIT/ML 10 ML VIAL SQ SCH ×2 (07:30→17:30)
[2018-09-15] MEDS: FAMOTIDINE 20 MG TAB PO SCH ×2 (08:08→21:05)
[2018-09-15 09:18] LABS: HCT 43.4 % (39.0-53.0); HGB 14.4 gm/dL (13.0-17.5); MCH 30.2 pg (25.0-35.0); MCHC 33.1 g/dL (31.0-37.0); MCV 91.3 fL (80.0-100.0); Mean Platelet Volume 10.6; Platelet Count 107 k/uL (150-450); RBC 4.75 m/uL (4.30-5.90); RDW 14.1 % (11.5-15.5); WBC 7.9 k/uL (3.8-10.6)
[2018-09-15 09:28] LABS: Anion Gap 14 mmol/L; Blood Urea Nitrogen 23 mg/dL (9-20); Calcium 9.8 mg/dL (8.4-10.2); Carbon Dioxide 17 mmol/L (22-30); Chloride 115 mmol/L (98-107); Glucose 252 mg/dL (74-99); Potassium 4.8 mmol/L (3.5-5.1); Sodium 146 mmol/L (137-145)
[2018-09-15 12:29] LABS: Glucose,Whole Blood 259 mg/dL (75-99)
[2018-09-15 16:55] LABS: Glucose,Whole Blood 307 mg/dL (75-99)
[2018-09-15 20:33] LABS: Glucose,Whole Blood 261 mg/dL (75-99)
[2018-09-15 22:01] VITALS: RESP 16
[2018-09-16] MEDS: INSULIN ASPART (NovoLOG) 100 UNIT/ML VIAL SQ SCH ×3 (01:57→13:13)
[2018-09-16 01:58] LABS: Glucose,Whole Blood 215 mg/dL (75-99)
[2018-09-16 05:42] VITALS: BP 135/71; TEMP 97.4
[2018-09-16 06:57] LABS: Glucose,Whole Blood 211 mg/dL (75-99)
[2018-09-16 07:19] LABS: HCT 41.6 % (39.0-53.0); MCH 29.9 pg (25.0-35.0); MCHC 33.7 g/dL (31.0-37.0); MCV 88.8 fL (80.0-100.0); Mean Platelet Volume 10.7; Platelet Count 110 k/uL (150-450); RBC 4.69 m/uL (4.30-5.90); RDW 15.3 % (11.5-15.5); WBC 7.3 k/uL (3.8-10.6)
[2018-09-16] MEDS ORDERED: INSULN ASP PRT/INSULIN ASPART 100 UNIT/ML 10 ML VIAL SQ SCH (07:30)
[2018-09-16 07:54] LABS: Anion Gap 10 mmol/L; Blood Urea Nitrogen 20 mg/dL (9-20); Calcium 9.9 mg/dL (8.4-10.2); Carbon Dioxide 25 mmol/L (22-30); Chloride 108 mmol/L (98-107); Glucose 216 mg/dL (74-99); Potassium 4.6 mmol/L (3.5-5.1); Sodium 143 mmol/L (137-145)
[2018-09-16] MEDS: HEPARIN SODIUM,PORCINE 5,000 UNIT/ML 1 ML VIAL SQ SCH (07:59)
[2018-09-16] MEDS: FAMOTIDINE 20 MG TAB PO SCH (08:01)
[2018-09-16 09:09] VITALS: PULSE 75
[2018-09-16 11:47] LABS: Glucose,Whole Blood 270 mg/dL (75-99)
== END 2018-09-16 15:20 | disposition home or self-care (01) | DRG 637 ==
LOC: EC 23:49 → 2SICU 09-12 02:31 → 3NMEDONC 09-14 18:23
PROVIDERS: ADMIT Internal Medicine; ATTEND Internal Medicine
DX: E11.10 Type 2 diabetes mellitus with ketoacidosis without coma (principal); G93.41 Metabolic encephalopathy; N17.9 Acute kidney failure, unspecified; E87.0 Hyperosmolality and hypernatremia; E86.0 Dehydration; F17.200 Nicotine dependence, unspecified, uncomplicated
CPT/HCPCS: 36415; 36600; 51702; 70450; 71045; 80048; 80051; 80053; 80306; 81001; 81003; 82009; 82140; 82550; 82553; 82565; 82803; 82805; 82947; 83036; 83605; 83735; 83930; 84100; 84132; 84145; 84484; 84520; 85025; 85027; 85610; 85730; 87040; 87086; 87502; 93005; 96360; 99291

== ENCOUNTER 2023-01-28 05:53 | Inpatient (IN) | payer OTHER ==
[2023-01-28 05:58] LABS: Glucose,Whole Blood 418 mg/dL (70-110)
[2023-01-28] MEDS ORDERED: SODIUM CHLORIDE 0.9% 2,000 ML IV STA (06:11)
[2023-01-28] MEDS ORDERED: ONDANSETRON 4 MG/2 ML VIAL IVP STA (06:11)
[2023-01-28 06:24] LABS: Basophils % (A) 0 %; Eosinophils # (A) 0.1 k/uL (0-0.7); Eosinophils % (A) 1 %; HCT 49.1 % (39.0-53.0); HGB 15.5 gm/dL (13.0-17.5); Hypochromasia Marked; Lymphocytes # (A) 0.9 k/uL (1.0-4.8); Lymphocytes % (A) 4 %; MCH 31.4 pg (25.0-35.0); MCHC 31.7 g/dL (31.0-37.0); Mean Platelet Volume 8.8; Monocytes % (A) 4 %; Neutrophils # (A) 21.3 k/uL (1.3-7.7); Neutrophils % (A) 91 %; Platelet Count 242 k/uL (150-450); RBC 4.95 m/uL (4.30-5.90); RDW 12.3 % (11.5-15.5); WBC 23.6 k/uL (3.8-10.6)
[2023-01-28 06:24] LABS: VBG PH 6.8 (7.31-7.41)
[2023-01-28 06:29] LABS: ALT 25 U/L (4-49); AST 24 U/L (17-59); African American GFR (CKD) 48 (>60 ml/min/1.73 sqM); Albumin 4.4 g/dL (3.5-5.0); Alkaline Phosphatase 130 U/L (38-126); Amylase 41 U/L (30-110); Blood Urea Nitrogen 23 mg/dL (9-20); Calcium 8.2 mg/dL (8.4-10.2); Chloride 100 mmol/L (98-107); Lipase 44 U/L (23-300); Non-African American GFR(CKD) 41 (>60 ml/min/1.73 sqM); Potassium 5.9 mmol/L (3.5-5.1); Sodium 131 mmol/L (137-145); Total Bilirubin 0.7 mg/dL (0.2-1.3); Total Protein 7.3 g/dL (6.3-8.2)
--- NOTE | 2023-01-28 06:55 | ED ---
General Adult HPI - General Chief complaint: Recheck/Abnormal Lab/Rx Stated complaint: High blood sugar Time Seen by Provider: 01/28/23 05:57 Source: patient, EMS, RN notes reviewed Mode of arrival: EMS Limitations: no limitations - History of Present Illness Initial comments: This a 42-year-old male presents emergency from via EMS chief complaint of [place] vomiting hyperglycemia. Patient states symptoms started yesterday patient is complaining of feeling very thirsty complaining of diffuse abdominal discomfort associated with nausea vomiting. Denies any shortness of breath. Chills denies any trauma. Patient is known diabetic on insulin. He has not checked his blood sugar recently but states he was elevated has not taken any recent insulin. Patient denies any prior cardiac disease. Patient does complain of mild chest discomfort. - Related Data Home Medications Medication Instructions Recorded Confirmed INSULIN LISPRO (For Pump) [humaLOG 0.01 units SQ-PUMP CONTINUOUS 01/28/23 01/28/23 (For Pump)] Allergies Allergy/AdvReac Type Severity Reaction Status Date / Time No Known Allergies Allergy Verified 01/28/23 07:52 Review of Systems ROS Statement: Those systems with pertinent positive or pertinent negative responses have been documented in the HPI. ROS Other: All systems not noted in ROS Statement are negative. Past Medical History Past Medical History: Diabetes Mellitus History of Any Multi-Drug Resistant Organisms: None Reported Past Surgical History: No Surgical Hx Reported Past Psychological History: No Psychological Hx Reported Smoking Status: Never smoker Past Alcohol Use History: None Reported Past Drug Use History: None Reported General Exam Limitations: no limitations General appearance: alert, in no apparent distress, anxious Head exam: Present: atraumatic, normocephalic, normal inspection Eye exam: Present: normal appearance, PERRL, EOMI. Absent: scleral icterus, conjunctival injection, periorbital swelling ENT exam: Present: normal exam, mucous membranes dry. Absent: mucous membranes moist Neck exam: Present: normal inspection. Absent: tenderness, meningismus, lymphadenopathy Respiratory exam: Present: normal lung sounds bilaterally (Patient is tachypneic). Absent: respiratory distress, wheezes, rales, rhonchi, stridor Cardiovascular Exam: Present: regular rate, normal rhythm, normal heart sounds. Absent: systolic murmur, diastolic murmur, rubs, gallop, clicks GI/Abdominal exam: Present: soft, tenderness, normal bowel sounds. Absent: distended, guarding, rebound, rigid Neurological exam: Present: alert Skin exam: Present: warm, dry, intact, normal color. Absent: rash Course Vital Signs 01/28/23 01/28/23 01/28/23 05:55 06:31 07:15 Temperature 98.0 F Pulse Rate 98 95 93 Respiratory 26 H 26 H 26 H Rate Blood Pressure 169/95 155/98 124/86 O2 Sat by Pulse 99 98 100 Oximetry EKG Findings - EKG Comments: EKG Findings:: EKG performed at 6:04 sinus rhythm with rate of 95 NC 104 QRS 109 QT/QTC 355/408 there is noted short NC - EKG Results: EKG: interpreted by ART Medical Decision Making - Medical Decision Making Was pt. sent in by a medical professional or institution (, PA, SENIOR POLICY ANALYST, urgent care, hospital, or usp...) When possible be specific @ -[No] Did you speak to anyone other than the patient for history (EMS, parent, family, police, friend...)? What history was obtained from this source @ -[EMS and family providing prehospital complaints, past medical history] Did you review nursing and triage notes (agree or disagree)? Why? @ -[I reviewed and agree with nursing and triage notes] Were old charts reviewed (outside hosp., previous admission, EMS record, old EKG, old radiological studies, urgent care reports/EKG's, usp records)? Report findings @ -[Reviewed prior admissions, laboratory studies] Differential Diagnosis (chest pain, altered mental status, abdominal pain women, abdominal pain men, vaginal bleeding, weakness, fever, dyspnea, syncope, headache, dizziness, GI bleed, back pain, seizure, CVA, palpatations, mental health, musculoskeletal)? @ -Hyperglycemia, DKA, dehydration, abdominal pain, hyponatremia, acute kidney injury, this list is not all inclusive. EKG interpreted by me (3pts min.). @ -[As above] X-rays interpreted by me (1pt min.). @ -[None done] CT interpreted by me (1pt min.). @ -[None done] U/S interpreted by me (1pt. min.). @ -[None done] What testing was considered but not performed or refused? (CT, X-rays, U/S, labs)? Why? @ -[None] What meds were considered but not given or refused? Why? @ -[None] Did you discuss the management of the patient with other professionals (professionals i.e. , PA, SENIOR POLICY ANALYST, lab, RT, psych nurse, social worker delinquency prevention, associate director data & analytics, teacher, assurance officer, case consultant)? Give summary @ -[Dr. Esquivel and Sunny for admission given patient's clinical presentation, evidence of DKA, severe metabolic acidosis] Was smoking cessation discussed for >3mins.? @ -[No] Was critical care preformed (if so, how long)? @ -[35 minutes] Were there social determinants of health that impacted care today? How? (Homele ssness, low income, unemployed, alcoholism, drug addiction, transportation, low edu. Level, literacy, decrease access to med. care, care home, rehab)? @ -[No] Was there de-escalation of care discussed even if they declined (Discuss DNR or withdrawal of care, Hospice)? DNR status @ -[No] What co-morbidities impacted this encounter? (DM, HTN, Smoking, COPD, CAD, Cancer, CVA, ARF, Chemo, Hep., AIDS, mental health diagnosis, sleep apnea, morbid obesity)? @ -[Diabetes] Was patient admitted / discharged? Hospital course, mention meds given and route, prescriptions, significant lab abnormalities, going to OR and other pertinent info. @ -[Admitted patient is in critical condition patient has evidence of severe metabolic acidosis from DKA. Patient pH is 6.8 with bicarb 3. Patient was given 3 L normal saline bolus, patient was started on DKA protocol including insulin drip, as maintenance fluids. Patient prescribed antiemetics, pain relief. I did update hospitalist, ICU outside sales consultant. Patient will be admitted to the ICU for close monitoring.] Undiagnosed new problem with uncertain prognosis? @ -[No] Drug Therapy requiring intensive monitoring for toxicity (Heparin, Nitro, Insulin, Cardizem)? @ -[No] Were any procedures done? @ -[No] Diagnosis/symptom? @ -[DKA] Acute, or Chronic, or Acute on Chronic? @ -[Acute] Uncomplicated (without systemic symptoms) or Complicated (systemic symptoms)? @ -[, Complicated] Side effects of treatment? @ -[No] Exacerbation, Progression, or Severe Exacerbation? @ -[No] Poses a threat to life or bodily function? How? (Chest pain, USA, NH, pneumonia, PE, COPD, DKA, ARF, appy, cholecystitis, CVA, Diverticulitis, Homicidal, Suicidal, threat to staff... and all critical care pts) @ -[Yes patient has severe metabolic acidosis. - Lab Data Result diagrams: 01/28/23 05:50 01/28/23 05:50 Lab Results 01/28/23 01/28/23 01/28/23 Range/Units 05:50 05:50 05:50 WBC 23.6 H (3.8-10.6) k/uL RBC 4.95 (4.30-5.90) m/uL Hgb 15.5 (13.0-17.5) gm/dL Hct 49.1 (39.0-53.0) % MCV 99.0 (80.0-100.0) fL MCH 31.4 (25.0-35.0) pg MCHC 31.7 (31.0-37.0) g/dL RDW 12.3 (11.5-15.5) % Plt Count 242 (150-450) k/uL MPV 8.8 Neutrophils % 91 % Lymphocytes % 4 % Monocytes % 4 % Eosinophils % 1 % Basophils % 0 % Neutrophils # 21.3 H (1.3-7.7) k/uL Lymphocytes # 0.9 L (1.0-4.8) k/uL Monocytes # 1.0 (0-1.0) k/uL Eosinophils # 0.1 (0-0.7) k/uL Basophils # 0.0 (0-0.2) k/uL Hypochromasia Marked Sample Site ABG pH (7.35-7.45) ABG pCO2 (35-45) mmHg ABG pO2 (83-108) mmHg ABG O2 Saturation (94-97) % Piotr Test VBG pH (7.31-7.41) VBG pCO2 (37-51) mmHg VBG HCO3 (24-28) mmol/L FiO2 % Sodium 131 L (137-145) mmol/L Potassium 5.9 H (3.5-5.1) mmol/L Chloride 100 (98-107) mmol/L Carbon Dioxide <5 L* (22-30) mmol/L Anion Gap mmol/L BUN 23 H (9-20) mg/dL Creatinine 1.96 H (0.66-1.25) mg/dL Est GFR (CKD-EPI)AfAm 48 (>60 ml/min/1.73 sqM) Est GFR (CKD-EPI)NonAf 41 (>60 ml/min/1.73 sqM) Glucose 676 H* (74-99) mg/dL POC Glucose (mg/dL) (70-110) mg/dL POC Glu Department Sales Manager ID Plasma Lactic Acid Reinier 4.0 H* (0.7-2.0) mmol/L Calcium 8.2 L (8.4-10.2) mg/dL Total Bilirubin 0.7 (0.2-1.3) mg/dL AST 24 (17-59) U/L ALT 25 (4-49) U/L Alkaline Phosphatase 130 H (38-126) U/L Troponin I (0.000-0.034) ng/mL Total Protein 7.3 (6.3-8.2) g/dL Albumin 4.4 (3.5-5.0) g/dL Amylase 41 (30-110) U/L Lipase 44 (23-300) U/L Acetone, Qual Positive (Negative) 01/28/23 01/28/23 01/28/23 Range/Units 05:50 05:57 06:17 WBC (3.8-10.6) k/uL RBC (4.30-5.90) m/uL Hgb (13.0-17.5) gm/dL Hct (39.0-53.0) % MCV (80.0-100.0) fL MCH (25.0-35.0) pg MCHC (31.0-37.0) g/dL RDW (11.5-15.5) % Plt Count (150-450) k/uL MPV Neutrophils % % Lymphocytes % % Monocytes % % Eosinophils % % Basophils % % Neutrophils # (1.3-7.7) k/uL Lymphocytes # (1.0-4.8) k/uL Monocytes # (0-1.0) k/uL Eosinophils # (0-0.7) k/uL Basophils # (0-0.2) k/uL Hypochromasia Sample Site ABG pH (7.35-7.45) ABG pCO2 (35-45) mmHg ABG pO2 (83-108) mmHg ABG O2 Saturation (94-97) % Piotr Test VBG pH 6.80 L* (7.31-7.41) VBG pCO2 18 L* (37-51) mmHg VBG HCO3 3 L* (24-28) mmol/L FiO2 % Sodium (137-145) mmol/L Potassium (3.5-5.1) mmol/L Chloride (98-107) mmol/L Carbon Dioxide (22-30) mmol/L Anion Gap mmol/L BUN (9-20) mg/dL Creatinine (0.66-1.25) mg/dL Est GFR (CKD-EPI)AfAm (>60 ml/min/1.73 sqM) Est GFR (CKD-EPI)NonAf (>60 ml/min/1.73 sqM) Glucose (74-99) mg/dL POC Glucose (mg/dL) 418 H (70-110) mg/dL POC Glu Department Sales Manager ID Preet Trujillo Plasma Lactic Acid Reinier (0.7-2.0) mmol/L Calcium (8.4-10.2) mg/dL Total Bilirubin (0.2-1.3) mg/dL AST (17-59) U/L ALT (4-49) U/L Alkaline Phosphatase (38-126) U/L Troponin I <0.012 (0.000-0.034) ng/mL Total Protein (6.3-8.2) g/dL Albumin (3.5-5.0) g/dL Amylase (30-110) U/L Lipase (23-300) U/L Acetone, Qual (Negative) 01/28/23 01/28/23 Range/Units 07:15 07:21 WBC (3.8-10.6) k/uL RBC (4.30-5.90) m/uL Hgb (13.0-17.5) gm/dL Hct (39.0-53.0) % MCV (80.0-100.0) fL MCH (25.0-35.0) pg MCHC (31.0-37.0) g/dL RDW (11.5-15.5) % Plt Count (150-450) k/uL MPV Neutrophils % % Lymphocytes % % Monocytes % % Eosinophils % % Basophils % % Neutrophils # (1.3-7.7) k/uL Lymphocytes # (1.0-4.8) k/uL Monocytes # (0-1.0) k/uL Eosinophils # (0-0.7) k/uL Basophils # (0-0.2) k/uL Hypochromasia Sample Site rrad ABG pH 6.81 L* (7.35-7.45) ABG pCO2 <15 L* (35-45) mmHg ABG pO2 149 H (83-108) mmHg ABG O2 Saturation 97.7 H (94-97) % Piotr Test Yes VBG pH (7.31-7.41) VBG pCO2 (37-51) mmHg VBG HCO3 (24-28) mmol/L FiO2 21 % Sodium (137-145) mmol/L Potassium (3.5-5.1) mmol/L Chloride (98-107) mmol/L Carbon Dioxide (22-30) mmol/L Anion Gap mmol/L BUN (9-20) mg/dL Creatinine (0.66-1.25) mg/dL Est GFR (CKD-EPI)AfAm (>60 ml/min/1.73 sqM) Est GFR (CKD-EPI)NonAf (>60 ml/min/1.73 sqM) Glucose (74-99) mg/dL POC Glucose (mg/dL) >600 H (70-110) mg/dL POC Glu Department Sales Manager ID Claire Lezama Plasma Lactic Acid Reinier (0.7-2.0) mmol/L Calcium (8.4-10.2) mg/dL Total Bilirubin (0.2-1.3) mg/dL AST (17-59) U/L ALT (4-49) U/L Alkaline Phosphatase (38-126) U/L Troponin I (0.000-0.034) ng/mL Total Protein (6.3-8.2) g/dL Albumin (3.5-5.0) g/dL Amylase (30-110) U/L Lipase (23-300) U/L Acetone, Qual (Negative) Critical Care Time Critical Care Time: Yes Total Critical Care Time: 35 Disposition Clinical Impression: DKA (diabetic ketoacidosis), Dehydration, Abdominal pain Disposition: ADMITTED IP TO THIS HOSP Condition: Critical Referrals: Thaddeus Chang MD [Primary Care Provider] - 1-2 days Time of Disposition: 07:48
[2023-01-28 07:05] LABS: Carbon Dioxide <5 mmol/L (22-30); Glucose 676 mg/dL (74-99)
[2023-01-28] MEDS ORDERED: INSULIN REGULAR BOLUS (FROM DRIP BAG) IV ONE (07:10)
[2023-01-28 07:18] LABS: Glucose,Whole Blood >600 mg/dL (70-110)
[2023-01-28] MEDS: INSULIN REGULAR 100 UNIT in SODIUM CHLORIDE 0.9% 100 ML IV SCH ×2 (07:35→18:26)
[2023-01-28 07:36] LABS: ABG Oxygen Saturation 97.7 % (94-97); ABG PO2 149 mmHg (83-108); Allen Test Performed? Yes
[2023-01-28] MEDS: SODIUM CHLORIDE 0.9% 1,000 ML IV SCH ×2 (07:36→12:18)
[2023-01-28 07:42] LABS: ABG PH 6.81 (7.35-7.45)
[2023-01-28 07:43] LABS: ABG PCO2 <15 mmHg (35-45)
[2023-01-28] MEDS ORDERED: HYDROmorphone 0.5 MG/0.5 ML SYRINGE IVP STA (07:44)
[2023-01-28] MEDS ORDERED: SODIUM CHLORIDE 0.9% 1,000 ML IV ONE (07:47)
[2023-01-28] MEDS ORDERED: SODIUM BICARB 8.4% 50 ML SYR (1 MEQ/ML) IV STA (08:08)
[2023-01-28] MEDS ORDERED: SODIUM CHLORIDE 0.45% 1,000 ML with SODIUM BICARB (1 MEQ/ML) 100 ML IV SCH ×2 (08:45)
--- NOTE | 2023-01-28 08:46 | CT ---
EXAMINATION TYPE: CT abdomen pelvis wo con DATE OF EXAM: 01/28/2023 COMPARISON: None INDICATION: Abdominal pain, Diabetic with Blood Glucose: 676 DLP: 589.5 mGycm, Automated exposure control for dose reduction was used. CONTRAST: 0 mL of Isovue 300. Study performed without Oral Contrast TECHNIQUE: Axial images were obtained from above the diaphragm to the pubic rami in the axial plane a t 5 mm thick sections. Reconstructed images are reviewed on the computer in the coronal plane. FINDINGS: Limited CT sections are obtained the lung bases. The lung bases are clear. CT ABDOMEN: Stomach is distended with fluid. Liver: Normal Spleen: Normal Pancreas: Normal Adrenal glands: The adrenal glands are normal. Gallbladder: Appears to be surgically absent. Kidneys: No masses are evident. No hydronephrosis is present. No cysts are present. No renal stone s are identified. Aorta: Vascular calcification is within the aorta. Inferior vena cava: Normal. CT PELVIS: Loops of bowel within the abdomen and pelvis are normal. The study is without oral contrast limit ing bowel evaluation. Fecal debris is within the distal colon. No suspicious dilated small bowel are evident. Appendix: Not identified. No dilated tubular structure or inflammatory changes evident. Urinary bladder: Normal. Genitourinary structures: Prostate is normal Osseous structures: No suspicious lytic or sclerotic lesions. IMPRESSIONS: 1. No suspicious acute changes CT abdomen and pelvis
[2023-01-28 08:57] LABS: Glucose,Whole Blood 501 mg/dL (70-110)
[2023-01-28 09:25] LABS: VBG PH 6.8 (7.31-7.41)
[2023-01-28 09:37] LABS: Appearance,Urine Clear (Clear); Bacteria,Urine Rare /hpf; Bilirubin,Urine Negative (Negative); Blood,Urine Moderate (Negative); Color,Urine Colorless; Glucose,Urine (UA) 4+ (Negative); Granular Casts,Urine 11 /lpf (0); Hyaline Casts,Urine 3 /lpf (0-2); Leukocyte Esterase,Urine Negative (Negative); Mucus,Urine Rare /hpf; Nitrite,Urine Negative (Negative); Protein,Urine 1+ (Negative); RBC,Urine <1 /hpf (0-5); Specific Gravity,Urine 1.023 (1.001-1.035); Squamous Epithelial Cell,Urine <1 /hpf (0-4); Urobilinogen,Urine <2.0 mg/dL (<2.0); WBC,Urine 1 /hpf (0-5)
[2023-01-28 09:52] LABS: Ketones,Urine 4+ (Negative)
[2023-01-28 09:56] LABS: Glucose,Whole Blood 500 mg/dL (70-110)
[2023-01-28] MEDS ORDERED: ACETAMINOPHEN TAB 325 MG TAB PO PRN (10:19)
[2023-01-28] MEDS ORDERED: ONDANSETRON 4 MG/2 ML VIAL IVP PRN (10:19)
[2023-01-28] MEDS ORDERED: NALOXONE 0.4 MG/ML 1 ML VIAL IV PRN (10:19)
[2023-01-28] MEDS ORDERED: HYDROcodone/APAP 5-325MG 1 EACH TAB PO PRN (10:19)
[2023-01-28] MEDS ORDERED: MELATONIN 3 MG TABLET PO PRN (10:19)
[2023-01-28] MEDS ORDERED: bisacodyL 5 MG TABLET.DR PO PRN (10:19)
[2023-01-28] MEDS ORDERED: Magnesium Replacement Protocol 1 EACH MISC MISCELLANE PRN (10:21)
[2023-01-28] MEDS ORDERED: DEXTROSE 50% SYRINGE 50 ML IVP PRN ×2 (10:21)
[2023-01-28] MEDS ORDERED: Potassium Replacement Protocol 1 EACH MISC MISCELLANE PRN (10:21)
--- NOTE | 2023-01-28 10:24 | P.HPIM ---
History of Present Illness H&P Date: 01/28/23 (delayed charting seen at 0730) Patient is a 42-year-old male with a history of insulin-dependent diabetes mellitus on insulin pump who presented to the hospital due to nausea, vomiting, and abdominal pain. In the ER he underwent an extensive evaluation. On arrival he was tachycardic with respiratory rate of 26. He has significant laboratory abnormalities consistent with severe DKA including a white blood cell count of 23.6, sodium 131, potassium 5.9, carbon dioxide less than 5 with inability to complete the anion gap, BUN 23, creatinine 1.69, glucose 676, lactic acid 4. He underwent an ABG which showed a pH of 6.8, CO2 of 18, and bicarbonate of 3. Patient seen and examined at bedside. He is very tachypneic and has having a hard time dyspnea conversation. He has multiple family members at bedside including his girlfriend, motor, and daughters. He reports that he has been not doing well for last 2 days. He lost his phone and therefore has not normal sugars have been running on as he has a continuous insulin pump and possibly dysphagia. He does follow with customer service teller out of [place] but has not seen them or his primary care physician over 6 months. They're unsure exactly what precipitated his DKA of the fact that he was visited by [place] and probably had more alcohol as he usually does not drink. He does report nausea, vomiting, and abdominal pain as well as shortness of breath. Review of systems is limited secondary to his severe respiratory distress. Per family has a significant history of DKA and has required multiple ICU admissions and has been intubated in the past. Vital signs reviewed General: nontoxic, Severe distress, appears at stated age Derm: warm, diaphoretic Eyes: EOMI, no lid lag, anicteric sclera, pupils equal round reactive to light ENT: Nose and ears atraumatic Cardiovascular: S1S2 reg, no murmur, positive posterior tibial pulse bilateral, no edema, capillary refill greater than 2 seconds Lungs: Coarse breath sounds bilaterally, 2 word conversational dyspnea, sternal retraction Abdominal: soft, nontender to palpation, no guarding, no appreciable organomegaly, normal bowel sounds Ext: no gross muscle atrophy, moving all 4 extremities independently, no contractures Neuro: CN II-XII grossly intact, no focal neuro deficits Psych: Alert, oriented, appropriate affect Assessment/Plan: Severe DKA Metabolic acidosis related to above pseudohyponatremia that corrects to 1404 Leukocytosis, suspect reactive Hyperkalemia, due to acidosis DIANE Lactic acidosis - Insulin drip, every hour Accu-Cheks, check hemoglobin A1c - Due to pH of less than 6.9 bicarbonate be indicated in this patient. We will start half-normal with 2 A of bicarbonate and infuse at 200 mL per hour. 1 amp of bicarbonate now due to respiratory distress. Frequent CBGs to reassess PTH level. Once greater than 6.9 should be transitioned to normal saline versus half-normal depending on sodium level -Electrolytes every 4 hours -Avoid nephrotoxic agents - Ice chips only - Critical care consult - neuro checks Imaging: As per HPI Data Review: As per HPI EKG is reviewed by myself shows normal sinus rhythm at a rate of 95, [place] 104, QRS 109, QTC 408, no significant ST-T wave changes CT abdomen and pelvis-no suspicious acute change The patient is admitted with an anticipated greater than 2 midnight stay for evaluation of DKA. Surrogate decision-maker: Mother CODE STATUS:Full DVT prophylaxis: Lovenox Discussed with: ED physician Anticipated discharge date: Pending Clinical Course Anticipated discharge place: Pending Clinical Course This dictation was prepared using [employer] voice recognition software. Though every attempt is made to correct errors during dictation some may still exist. Past Medical History Past Medical History: Diabetes Mellitus History of Any Multi-Drug Resistant Organisms: None Reported Past Surgical History: No Surgical Hx Reported Past Psychological History: No Psychological Hx Reported Smoking Status: Never smoker Past Alcohol Use History: None Reported Past Drug Use History: None Reported Medications and Allergies Home Medications Medication Instructions Recorded Confirmed Type INSULIN LISPRO (For Pump) [humaLOG 0.01 units SQ-PUMP CONTINUOUS 01/28/23 01/28/23 History (For Pump)] Allergies Allergy/AdvReac Type Severity Reaction Status Date / Time No Known Allergies Allergy Verified 01/28/23 07:52 Physical Exam Osteopathic Statement: *. No significant issues noted on an osteopathic structural exam other than those noted in the History and Physical/Consult. Vitals: Vital Signs Temp Pulse Resp BP Pulse Ox 01/28/23 10:20 99 24 126/80 99 01/28/23 09:53 99 24 109/85 99 01/28/23 09:02 96 24 122/73 100 08/18/23 07:15 93 26 H 124/86 100 01/28/23 06:31 95 26 H 155/98 98 01/28/23 05:55 98.0 F 98 26 H 169/95 99 Intake and Output 01/27/23 01/28/23 01/28/23 22:59 06:59 14:59 Output Total 900 Balance -900 Output: Urine 900 Other: Weight 78.199 kg Results CBC & Chem 7: 01/28/23 05:50 01/28/23 12:51 Labs: Abnormal Lab Results - Last 24 Hours (Table) 01/28/23 01/28/23 01/28/23 Range/Units 05:50 05:50 05:50 WBC 23.6 H (3.8-10.6) k/uL Neutrophils # 21.3 H (1.3-7.7) k/uL Lymphocytes # 0.9 L (1.0-4.8) k/uL ABG pH (7.35-7.45) ABG pCO2 (35-45) mmHg ABG pO2 (83-108) mmHg ABG O2 Saturation (94-97) % VBG pH (7.31-7.41) VBG pCO2 (37-51) mmHg VBG HCO3 (24-28) mmol/L Sodium 131 L (137-145) mmol/L Potassium 5.9 H (3.5-5.1) mmol/L Carbon Dioxide <5 L* (22-30) mmol/L BUN 23 H (9-20) mg/dL Creatinine 1.96 H (0.66-1.25) mg/dL Glucose 676 H* (74-99) mg/dL POC Glucose (mg/dL) (70-110) mg/dL Plasma Lactic Acid Reinier 4.0 H* (0.7-2.0) mmol/L Calcium 8.2 L (8.4-10.2) mg/dL Alkaline Phosphatase 130 H (38-126) U/L Urine Protein (Negative) Urine Glucose (UA) (Negative) Urine Ketones (Negative) Urine Blood (Negative) Urine Bacteria (None) /hpf Hyaline Casts (0-2) /lpf Urine Mucus (None) /hpf 01/28/23 01/28/23 01/28/23 Range/Units 05:57 06:17 07:15 WBC (3.8-10.6) k/uL Neutrophils # (1.3-7.7) k/uL Lymphocytes # (1.0-4.8) k/uL ABG pH (7.35-7.45) ABG pCO2 (35-45) mmHg ABG pO2 (83-108) mmHg ABG O2 Saturation (94-97) % VBG pH 6.80 L* (7.31-7.41) VBG pCO2 18 L* (37-51) mmHg VBG HCO3 3 L* (24-28) mmol/L Sodium (137-145) mmol/L Potassium (3.5-5.1) mmol/L Carbon Dioxide (22-30) mmol/L BUN (9-20) mg/dL Creatinine (0.66-1.25) mg/dL Glucose (74-99) mg/dL POC Glucose (mg/dL) 418 H >600 H (70-110) mg/dL Plasma Lactic Acid Reinier (0.7-2.0) mmol/L Calcium (8.4-10.2) mg/dL Alkaline Phosphatase (38-126) U/L Urine Protein (Negative) Urine Glucose (UA) (Negative) Urine Ketones (Negative) Urine Blood (Negative) Urine Bacteria (None) /hpf Hyaline Casts (0-2) /lpf Urine Mucus (None) /hpf 01/28/23 01/28/23 01/28/23 Range/Units 07:21 08:50 08:52 WBC (3.8-10.6) k/uL Neutrophils # (1.3-7.7) k/uL Lymphocytes # (1.0-4.8) k/uL ABG pH 6.81 L* (7.35-7.45) ABG pCO2 <15 L* (35-45) mmHg ABG pO2 149 H (83-108) mmHg ABG O2 Saturation 97.7 H (94-97) % VBG pH 6.80 L* (7.31-7.41) VBG pCO2 19 L (37-51) mmHg VBG HCO3 3 L* (24-28) mmol/L Sodium (137-145) mmol/L Potassium (3.5-5.1) mmol/L Carbon Dioxide (22-30) mmol/L BUN (9-20) mg/dL Creatinine (0.66-1.25) mg/dL Glucose (74-99) mg/dL POC Glucose (mg/dL) 501 H (70-110) mg/dL Plasma Lactic Acid Reinier (0.7-2.0) mmol/L Calcium (8.4-10.2) mg/dL Alkaline Phosphatase (38-126) U/L Urine Protein (Negative) Urine Glucose (UA) (Negative) Urine Ketones (Negative) Urine Blood (Negative) Urine Bacteria (None) /hpf Hyaline Casts (0-2) /lpf Urine Mucus (None) /hpf 01/28/23 01/28/23 Range/Units 09:00 09:52 WBC (3.8-10.6) k/uL Neutrophils # (1.3-7.7) k/uL Lymphocytes # (1.0-4.8) k/uL ABG pH (7.35-7.45) ABG pCO2 (35-45) mmHg ABG pO2 (83-108) mmHg ABG O2 Saturation (94-97) % VBG pH (7.31-7.41) VBG pCO2 (37-51) mmHg VBG HCO3 (24-28) mmol/L Sodium (137-145) mmol/L Potassium (3.5-5.1) mmol/L Carbon Dioxide (22-30) mmol/L BUN (9-20) mg/dL Creatinine (0.66-1.25) mg/dL Glucose (74-99) mg/dL POC Glucose (mg/dL) 500 H (70-110) mg/dL Plasma Lactic Acid Reinier (0.7-2.0) mmol/L Calcium (8.4-10.2) mg/dL Alkaline Phosphatase (38-126) U/L Urine Protein 1+ H (Negative) Urine Glucose (UA) 4+ H (Negative) Urine Ketones 4+ H (Negative) Urine Blood Moderate H (Negative) Urine Bacteria Rare H (None) /hpf Hyaline Casts 3 H (0-2) /lpf Urine Mucus Rare H (None) /hpf
--- NOTE | 2023-01-28 10:42 | P.CNPUL ---
History of Present Illness Consult date: 01/28/23 Requesting physician: Ofelia Reyes Reason for consult: other (Critical care management) Chief complaint: Abdominal pain, nausea and vomiting History of present illness: This is a 42-year-old male patient with a known history of insulin-dependent diabetes mellitus that presented to the emergency room early this morning with a one-day history of abdominal pain, nausea vomiting and excessive thirst. He was found to be in severe metabolic acidosis. His arterial blood gases on room air revealed a pO2 of 149, pCO2 less than 15 and a pH of 6.81. Blood glucose was greater than 600. Bicarb less than 5. White count 23.6. Hemoglobin 15.5. Sodium 131. Potassium 5.9. BUN 23. Creatinine 1.96. Lactic acid 4.0. Lipase 44. Urinalysis with 4+ glucose 4+ ketones moderate blood and acetone positive. He was initiated on the DKA protocol. He has received 3 L of fluids resuscitation thus far. Received an amp of bicarb and 7 units of regular insulin. He is seen today in the intensive emergency department. He has restless, tachypneic, tachycardic. Maintaining good O2 saturations in the high 90s on room air. He's been initiated on Normal saline at 200 ML's per hour. Normal saline with 2 A of bicarb at 200 ML's per hour. Insulin drip at 0.1 units per kilogram per hour. Lovenox for DVT prophylaxis. Computed tomography scan of the abdomen and pelvis revealed no suspicious acute changes. Review of Systems REVIEW OF SYSTEMS: CONSTITUTIONAL: Denies any recent significant weight loss or weight gain. EYES: Denies change in vision. EARS, NOSE, MOUTH, THROAT: Denies headaches, denies sore throat. CARDIOVASCULAR: Denies chest pain, palpitations or syncopal episodes. RESPIRATORY: Denies shortness of breath, cough, congestion or hemoptysis. GASTROINTESTINAL: Positive for nausea, vomiting, abdominal pain GENITOURINARY: Denies hematuria, denies infections. MUSKULOSKELETAL: Denies pain, denies swelling. INTEGUMENTARY: Denies rash, denies eczema. NEUROLOGICAL: Denies recent memory loss, no recent seizure activity. PSYCHIATRIC: Denies anxiety, denies depression. HEMATOLOGIC/LYMPHATIC: Denies anemia, denies enlarged lymph nodes. Past Medical History Past Medical History: Diabetes Mellitus History of Any Multi-Drug Resistant Organisms: None Reported Past Surgical History: No Surgical Hx Reported Past Psychological History: No Psychological Hx Reported Smoking Status: Never smoker Past Alcohol Use History: None Reported Past Drug Use History: None Reported Medications and Allergies Home Medications Medication Instructions Recorded Confirmed Type INSULIN LISPRO (For Pump) [humaLOG 0.01 units SQ-PUMP CONTINUOUS 01/28/23 01/28/23 History (For Pump)] Allergies Allergy/AdvReac Type Severity Reaction Status Date / Time No Known Allergies Allergy Verified 01/28/23 07:52 Physical Exam Vitals: Vital Signs Temp Pulse Resp BP Pulse Ox 01/28/23 10:20 99 24 126/80 99 01/28/23 09:53 99 24 109/85 99 01/28/23 09:02 96 24 122/73 100 01/28/23 07:15 93 26 H 124/86 100 01/28/23 06:31 95 26 H 155/98 98 01/28/23 05:55 98.0 F 98 26 H 169/95 99 Intake and Output 01/27/23 01/28/23 01/28/23 22:59 06:59 14:59 Output Total 900 Balance -900 Output: Urine 900 Other: Weight 78.199 kg GENERAL EXAM: Alert, restless, tachypneic 42-year-old male patient, on room air. HEAD: Normocephalic. EYES: Normal reaction of pupils, equal size. NOSE: Clear with pink turbinates. THROAT: No erythema or exudates. NECK: No masses, no JVD. CHEST: No chest wall deformity. LUNGS: Equal air entry with no crackles, wheeze, rhonchi or dullness. CVS: S1 and S2 normal with no audible murmur, regular rhythm. ABDOMEN: No hepatosplenomegaly, normal bowel sounds, no guarding or rigidity. SPINE: No scoliosis or deformity SKIN: No rashes CENTRAL NERVOUS SYSTEM: No focal deficits, tone is normal in all 4 extremities. EXTREMITIES: There is no peripheral edema. No clubbing, no cyanosis. Peripheral pulses are intact. Results - Laboratory Findings CBC and BMP: 01/28/23 05:50 01/28/23 05:50 ABG ABG pH 6.81 (7.35-7.45) L* 01/28/23 07:21 ABG pCO2 <15 mmHg (35-45) L* 01/28/23 07:21 ABG pO2 149 mmHg (83-108) H 01/28/23 07:21 ABG O2 Saturation 97.7 % (94-97) H 01/28/23 07:21 Abnormal lab findings: Abnormal Labs 01/28/23 01/28/23 01/28/23 05:50 05:50 05:50 WBC 23.6 H Neutrophils # 21.3 H Lymphocytes # 0.9 L ABG pH ABG pCO2 ABG pO2 ABG O2 Saturation VBG pH VBG pCO2 VBG HCO3 Sodium 131 L Potassium 5.9 H Carbon Dioxide <5 L* BUN 23 H Creatinine 1.96 H Glucose 676 H* POC Glucose (mg/dL) Plasma Lactic Acid Reinier 4.0 H* Calcium 8.2 L Alkaline Phosphatase 130 H Urine Protein Urine Glucose (UA) Urine Ketones Urine Blood Urine Bacteria Hyaline Casts Urine Mucus 01/28/23 01/28/23 01/28/23 05:57 06:17 07:15 WBC Neutrophils # Lymphocytes # ABG pH ABG pCO2 ABG pO2 ABG O2 Saturation VBG pH 6.80 L* VBG pCO2 18 L* VBG HCO3 3 L* Sodium Potassium Carbon Dioxide BUN Creatinine Glucose POC Glucose (mg/dL) 418 H >600 H Plasma Lactic Acid Reinier Calcium Alkaline Phosphatase Urine Protein Urine Glucose (UA) Urine Ketones Urine Blood Urine Bacteria Hyaline Casts Urine Mucus 01/28/23 01/28/23 01/28/23 07:21 08:50 08:52 WBC Neutrophils # Lymphocytes # ABG pH 6.81 L* ABG pCO2 <15 L* ABG pO2 149 H ABG O2 Saturation 97.7 H VBG pH 6.80 L* VBG pCO2 19 L VBG HCO3 3 L* Sodium Potassium Carbon Dioxide BUN Creatinine Glucose POC Glucose (mg/dL) 501 H Plasma Lactic Acid Reinier Calcium Alkaline Phosphatase Urine Protein Urine Glucose (UA) Urine Ketones Urine Blood Urine Bacteria Hyaline Casts Urine Mucus 01/28/23 01/28/23 09:00 09:52 WBC Neutrophils # Lymphocytes # ABG pH ABG pCO2 ABG pO2 ABG O2 Saturation VBG pH VBG pCO2 VBG HCO3 Sodium Potassium Carbon Dioxide BUN Creatinine Glucose POC Glucose (mg/dL) 500 H Plasma Lactic Acid Reinier Calcium Alkaline Phosphatase Urine Protein 1+ H Urine Glucose (UA) 4+ H Urine Ketones 4+ H Urine Blood Moderate H Urine Bacteria Rare H Hyaline Casts 3 H Urine Mucus Rare H Assessment and Plan Assessment: Acute diabetic ketoacidosis secondary to recent nausea, vomiting Anion gap metabolic acidosis secondary to above Hyperkalemia secondary to above Leukocytosis suspect reactive and secondary to above Acute renal failure secondary to dehydration Previous admission for DKA in 2018 Former smoker In: The patient was seen and evaluated Labs and medications reviewed Continue with the DKA protocol Continue fluid resuscitation Continue insulin drip Admit to the intensive care unit for close monitoring We will continue to follow and make further recommendations based on his clinical status I have personally seen and examined the patient, performed the documentation and the assessment and plan as written. Number of minutes spent on the visit: 20.
[2023-01-28 10:49] LABS: Glucose,Whole Blood 432 mg/dL (70-110)
[2023-01-28 10:51] LABS: African American GFR (CKD) 78 (>60 ml/min/1.73 sqM); Blood Urea Nitrogen 23 mg/dL (9-20); Chloride 110 mmol/L (98-107); Glucose 445 mg/dL (74-99); Non-African American GFR(CKD) 68 (>60 ml/min/1.73 sqM); Potassium 4.6 mmol/L (3.5-5.1); Sodium 137 mmol/L (137-145)
[2023-01-28 10:58] LABS: Carbon Dioxide <5 mmol/L (22-30)
[2023-01-28 11:57] LABS: VBG PH 7.07 (7.31-7.41)
[2023-01-28 12:06] VITALS: BMI 22.1
[2023-01-28 12:21] LABS: Glucose,Whole Blood 349 mg/dL (70-110)
[2023-01-28 12:59] LABS: Glucose,Whole Blood 305 mg/dL (70-110)
[2023-01-28 13:26] LABS: African American GFR (CKD) >90 (>60 ml/min/1.73 sqM); Blood Urea Nitrogen 22 mg/dL (9-20); Chloride 112 mmol/L (98-107); Glucose 321 mg/dL (74-99); Non-African American GFR(CKD) 84 (>60 ml/min/1.73 sqM); Potassium 4.1 mmol/L (3.5-5.1); Sodium 137 mmol/L (137-145)
[2023-01-28 13:30] LABS: Carbon Dioxide <5 mmol/L (22-30)
[2023-01-28 14:14] LABS: Glucose,Whole Blood 225 mg/dL (70-110)
[2023-01-28 14:14] LABS: Glucose,Whole Blood 263 mg/dL (70-110)
[2023-01-28 15:03] LABS: Glucose,Whole Blood 200 mg/dL (70-110)
[2023-01-28] MEDS: D5-0.45% NACL WITH KCL 20MEQ/L 1,000 ML IV SCH ×2 (15:42→20:47)
[2023-01-28 16:15] LABS: Glucose,Whole Blood 192 mg/dL (70-110)
[2023-01-28 17:08] LABS: Glucose,Whole Blood 214 mg/dL (70-110)
[2023-01-28 17:39] LABS: African American GFR (CKD) >90 (>60 ml/min/1.73 sqM); Anion Gap 14 mmol/L; Blood Urea Nitrogen 20 mg/dL (9-20); Calcium 7.3 mg/dL (8.4-10.2); Chloride 113 mmol/L (98-107); Glucose 222 mg/dL (74-99); Magnesium 1.8 mg/dL (1.6-2.3); Non-African American GFR(CKD) >90 (>60 ml/min/1.73 sqM); Phosphorus 1.4 mg/dL (2.5-4.5); Potassium 3.8 mmol/L (3.5-5.1); Sodium 134 mmol/L (137-145)
[2023-01-28 18:10] LABS: Carbon Dioxide 7 mmol/L (22-30)
[2023-01-28 18:14] LABS: Glucose,Whole Blood 227 mg/dL (70-110)
[2023-01-28] MEDS: POTASSIUM PHOSPHATE 10 MMOL in SODIUM CHLORIDE 0.9% 250 ML IV SCH ×2 (18:26→20:47)
[2023-01-28 19:07] LABS: Glucose,Whole Blood 206 mg/dL (70-110)
[2023-01-28 20:01] LABS: Glucose,Whole Blood 204 mg/dL (70-110)
[2023-01-28 21:01] LABS: African American GFR (CKD) >90 (>60 ml/min/1.73 sqM); Anion Gap 11 mmol/L; Blood Urea Nitrogen 17 mg/dL (9-20); Calcium 7.5 mg/dL (8.4-10.2); Carbon Dioxide 10 mmol/L (22-30); Chloride 112 mmol/L (98-107); Glucose 233 mg/dL (74-99); Magnesium 1.8 mg/dL (1.6-2.3); Non-African American GFR(CKD) >90 (>60 ml/min/1.73 sqM); Potassium 3.7 mmol/L (3.5-5.1); Sodium 133 mmol/L (137-145)
[2023-01-28 21:08] LABS: Glucose,Whole Blood 209 mg/dL (70-110)
[2023-01-28 22:05] LABS: Glucose,Whole Blood 207 mg/dL (70-110)
[2023-01-28] MEDS ORDERED: MAGNESIUM SULFATE-D5W PMX 1 GM in DEXTROSE/WATER 1 100ML.BAG IVPB ONE (22:18)
[2023-01-28] MEDS: POTASSIUM CHLORIDE 10 MEQ in WATER FOR INJECTION 1 100ML.BAG IVPB SCH (22:56)
[2023-01-28 23:07] LABS: Glucose,Whole Blood 212 mg/dL (70-110)
[2023-01-28 23:58] LABS: Glucose,Whole Blood 204 mg/dL (70-110)
[2023-01-29] MEDS: POTASSIUM CHLORIDE 10 MEQ in WATER FOR INJECTION 1 100ML.BAG IVPB SCH (00:15)
[2023-01-29 01:16] LABS: Glucose,Whole Blood 176 mg/dL (70-110)
[2023-01-29 01:51] LABS: African American GFR (CKD) >90 (>60 ml/min/1.73 sqM); Anion Gap 11 mmol/L; Blood Urea Nitrogen 14 mg/dL (9-20); Calcium 7.7 mg/dL (8.4-10.2); Carbon Dioxide 12 mmol/L (22-30); Chloride 112 mmol/L (98-107); Glucose 168 mg/dL (74-99); Non-African American GFR(CKD) >90 (>60 ml/min/1.73 sqM); Phosphorus 1.6 mg/dL (2.5-4.5); Potassium 3.4 mmol/L (3.5-5.1); Sodium 135 mmol/L (137-145)
[2023-01-29 02:13] LABS: Glucose,Whole Blood 159 mg/dL (70-110)
[2023-01-29] MEDS: POTASSIUM CHLORIDE ER 20 MEQ TAB.ER PO SCH ×2 (02:15→05:18)
[2023-01-29 03:02] LABS: Glucose,Whole Blood 139 mg/dL (70-110)
[2023-01-29 04:19] LABS: Glucose,Whole Blood 178 mg/dL (70-110)
[2023-01-29 04:27] LABS: HCT 39.3 % (39.0-53.0); HGB 13.6 gm/dL (13.0-17.5); MCH 30.5 pg (25.0-35.0); MCHC 34.7 g/dL (31.0-37.0); Mean Platelet Volume 8.8; Platelet Count 173 k/uL (150-450); RBC 4.47 m/uL (4.30-5.90); RDW 13.2 % (11.5-15.5); WBC 12.3 k/uL (3.8-10.6)
[2023-01-29 04:57] LABS: African American GFR (CKD) >90 (>60 ml/min/1.73 sqM); Anion Gap 11 mmol/L; Blood Urea Nitrogen 13 mg/dL (9-20); Calcium 7.6 mg/dL (8.4-10.2); Carbon Dioxide 12 mmol/L (22-30); Chloride 111 mmol/L (98-107); Glucose 155 mg/dL (74-99); Non-African American GFR(CKD) >90 (>60 ml/min/1.73 sqM); Phosphorus 1.6 mg/dL (2.5-4.5); Sodium 134 mmol/L (137-145)
[2023-01-29 05:12] LABS: Potassium 3.4 mmol/L (3.5-5.1)
[2023-01-29 05:18] LABS: Glucose,Whole Blood 187 mg/dL (70-110)
[2023-01-29 06:23] LABS: Glucose,Whole Blood 213 mg/dL (70-110)
[2023-01-29] MEDS: D5-0.45% NACL WITH KCL 20MEQ/L 1,000 ML IV SCH ×2 (06:47→11:11)
[2023-01-29 07:06] LABS: Glucose,Whole Blood 235 mg/dL (70-110)
[2023-01-29 07:43] LABS: Glucose,Whole Blood 234 mg/dL (70-110)
[2023-01-29 08:06] LABS: African American GFR (CKD) >90 (>60 ml/min/1.73 sqM); Anion Gap 11 mmol/L; Blood Urea Nitrogen 12 mg/dL (9-20); Calcium 7.7 mg/dL (8.4-10.2); Carbon Dioxide 12 mmol/L (22-30); Chloride 111 mmol/L (98-107); Glucose 256 mg/dL (74-99); Magnesium 2.1 mg/dL (1.6-2.3); Non-African American GFR(CKD) >90 (>60 ml/min/1.73 sqM); Phosphorus 1.5 mg/dL (2.5-4.5); Potassium 3.4 mmol/L (3.5-5.1); Sodium 134 mmol/L (137-145)
[2023-01-29] MEDS: ENOXAPARIN 40 MG/0.4 ML SYRINGE SQ SCH (08:41)
[2023-01-29] MEDS: POTASSIUM PHOSPHATE 10 MMOL in SODIUM CHLORIDE 0.9% 250 ML IV SCH ×3 (08:41→13:02)
[2023-01-29] MEDS: PANTOPRAZOLE 40 MG/10 ML VIAL IVP SCH (08:41)
[2023-01-29 08:47] LABS: Glucose,Whole Blood 248 mg/dL (70-110)
--- NOTE | 2023-01-29 09:41 | P.PN ---
Subjective Progress Note Date: 01/29/23 This is a 42-year-old male patient with a known history of insulin-dependent diabetes mellitus that presented to the emergency room early this morning with a one-day history of abdominal pain, nausea vomiting and excessive thirst. He was found to be in severe metabolic acidosis. His arterial blood gases on room air revealed a pO2 of 149, pCO2 less than 15 and a pH of 6.81. Blood glucose was greater than 600. Bicarb less than 5. White count 23.6. Hemoglobin 15.5. Sodium 131. Potassium 5.9. BUN 23. Creatinine 1.96. Lactic acid 4.0. Lipase 44. Urinalysis with 4+ glucose 4+ ketones moderate blood and acetone positive. He was initiated on the DKA protocol. He has received 3 L of fluids r esuscitation thus far. Received an amp of bicarb and 7 units of regular insulin. He is seen today in the intensive emergency department. He has restless, tachypneic, tachycardic. Maintaining good O2 saturations in the high 90s on room air. He's been initiated on Normal saline at 200 ML's per hour. Normal saline with 2 A of bicarb at 200 ML's per hour. Insulin drip at 0.1 units per kilogram per hour. Lovenox for DVT prophylaxis. Computed tomography scan of the abdomen and pelvis revealed no suspicious acute changes. The patient is seen today 01/29/2023 in follow-up in the intensive care unit. He is currently awake and alert in no acute distress. He 90s on room air. He is on insulin drip at 2.4 units per hour. He has D5.45 normal saline with 20 mEq of KCl at 150 ML's per hour. Sodium 134. Potassium 3.4. Bicarb 12. Anion gap 11. BUN 12. Creatinine 0.70. Glucose 256. He is on Lovenox for DVT prophylaxis. Objective - Vital Signs Vital signs: Vital Signs Temp 98.7 F 01/29/23 08:00 Pulse 77 01/29/23 09:00 Resp 16 01/29/23 08:00 BP 106/62 01/29/23 09:00 Pulse Ox 96 01/29/23 09:00 FiO2 Intake & Output 01/28/23 01/29/23 01/29/23 18:59 06:59 18:59 Intake Total 5340.964 6785 550 Output Total 1700 1700 0 Balance -170.054 993 550 Weight 78.199 kg 88.4 kg Intake: IV 1450 2650 550 D5-0.45% NaCl with KCl 450 1950 300 20Meq/l 1,000 ml @ 150 mls/hr IV .Q6H40M [facility] Rx# :[id number] Magnesium Sulfate-D5w Pmx 100 1 gm In Dextrose/Water 1 100ml.bag @ 100 mls/hr IVPB ONCE ONE Rx#: [id number] Potassium Chloride 10 meq 200 In Water For Injection 1 100ml.bag @ 100 mls/hr IVPB Q1H [facility] Rx#: [id number] Potassium Phosphate 10 400 250 mmol In Sodium Chloride 0 .9% 250 ml @ 125 mls/hr IV Q2H [facility] Rx#:[id number] Sodium Chloride 0.45% 1, 1000 000 ml @ 200 mls/hr IV . Q5H30M [facility] with Sodium Bicarb (1 Meq/ml) 100 ml Rx#:[id number] Intake, IV Titration 79.946 43 Amount Insulin Regular 100 unit 79.946 43 In Sodium Chloride 0.9% 100 ml @ 0.1 UNITS/KG/HR 7.898 mls/hr IV .[id number] [facility] Rx#:[id number] Output: Urine 1700 1700 0 Other: Voiding Method Urinal Urinal Urinal # Voids 0 0 - Exam GENERAL EXAM: Alert, oriented 42-year-old male, on room air, comfortable in no apparent distress. HEAD: Normocephalic. EYES: Normal reaction of pupils, equal size. NOSE: Clear with pink turbinates. THROAT: No erythema or exudates. NECK: No masses, no JVD. CHEST: No chest wall deformity. LUNGS: Equal air entry with no crackles, wheeze, rhonchi or dullness. CVS: S1 and S2 normal with no audible murmur, regular rhythm. ABDOMEN: No hepatosplenomegaly, normal bowel sounds, no guarding or rigidity. SPINE: No scoliosis or deformity SKIN: No rashes CENTRAL NERVOUS SYSTEM: No focal deficits, tone is normal in all 4 extremities. EXTREMITIES: There is no peripheral edema. No clubbing, no cyanosis. Peripheral pulses are intact. - Labs CBC & Chem 7: 01/29/23 03:51 08/19/23 07:40 Labs: Abnormal Lab Results - Last 24 Hours (Table) 01/28/23 01/28/23 01/28/23 Range/Units 09:00 09:52 10:37 WBC (3.8-10.6) k/uL VBG pH (7.31-7.41) VBG pCO2 (37-51) mmHg VBG HCO3 (24-28) mmol/L Sodium (137-145) mmol/L Potassium (3.5-5.1) mmol/L Chloride 110 H (98-107) mmol/L Carbon Dioxide <5 L* (22-30) mmol/L BUN 23 H (9-20) mg/dL Creatinine 1.30 H (0.66-1.25) mg/dL Glucose 445 H (74-99) mg/dL POC Glucose (mg/dL) 500 H (70-110) mg/dL Calcium (8.4-10.2) mg/dL Phosphorus (2.5-4.5) mg/dL Urine Protein 1+ H (Negative) Urine Glucose (UA) 4+ H (Negative) Urine Ketones 4+ H (Negative) Urine Blood Moderate H (Negative) Urine Bacteria Rare H (None) /hpf Hyaline Casts 3 H (0-2) /lpf Urine Mucus Rare H (None) /hpf 01/28/23 01/28/23 01/28/23 Range/Units 10:48 11:41 12:20 WBC (3.8-10.6) k/uL VBG pH 7.07 L* (7.31-7.41) VBG pCO2 15 L* (37-51) mmHg VBG HCO3 4 L* (24-28) mmol/L Sodium (137-145) mmol/L Potassium (3.5-5.1) mmol/L Chloride (98-107) mmol/L Carbon Dioxide (22-30) mmol/L BUN (9-20) mg/dL Creatinine (0.66-1.25) mg/dL Glucose (74-99) mg/dL POC Glucose (mg/dL) 432 H 349 H (70-110) mg/dL Calcium (8.4-10.2) mg/dL Phosphorus (2.5-4.5) mg/dL Urine Protein (Negative) Urine Glucose (UA) (Negative) Urine Ketones (Negative) Urine Blood (Negative) Urine Bacteria (None) /hpf Hyaline Casts (0-2) /lpf Urine Mucus (None) /hpf 01/28/23 01/28/23 01/28/23 Range/Units 12:51 12:51 12:57 WBC (3.8-10.6) k/uL VBG pH (7.31-7.41) VBG pCO2 (37-51) mmHg VBG HCO3 (24-28) mmol/L Sodium (137-145) mmol/L Potassium (3.5-5.1) mmol/L Chloride 112 H (98-107) mmol/L Carbon Dioxide <5 L* (22-30) mmol/L BUN 22 H (9-20) mg/dL Creatinine (0.66-1.25) mg/dL Glucose 321 H (74-99) mg/dL POC Glucose (mg/dL) 305 H (70-110) mg/dL Calcium (8.4-10.2) mg/dL Phosphorus 1.9 L (2.5-4.5) mg/dL Urine Protein (Negative) Urine Glucose (UA) (Negative) Urine Ketones (Negative) Urine Blood (Negative) Urine Bacteria (None) /hpf Hyaline Casts (0-2) /lpf Urine Mucus (None) /hpf 01/28/23 01/28/23 01/28/23 Range/Units 14:09 14:12 15:02 WBC (3.8-10.6) k/uL VBG pH (7.31-7.41) VBG pCO2 (37-51) mmHg VBG HCO3 (24-28) mmol/L Sodium (137-145) mmol/L Potassium (3.5-5.1) mmol/L Chloride (98-107) mmol/L Carbon Dioxide (22-30) mmol/L BUN (9-20) mg/dL Creatinine (0.66-1.25) mg/dL Glucose (74-99) mg/dL POC Glucose (mg/dL) 263 H 225 H 200 H (70-110) mg/dL Calcium (8.4-10.2) mg/dL Phosphorus (2.5-4.5) mg/dL Urine Protein (Negative) Urine Glucose (UA) (Negative) Urine Ketones (Negative) Urine Blood (Negative) Urine Bacteria (None) /hpf Hyaline Casts (0-2) /lpf Urine Mucus (None) /hpf 01/28/23 01/28/23 01/28/23 Range/Units 16:13 16:36 17:06 WBC (3.8-10.6) k/uL VBG pH (7.31-7.41) VBG pCO2 (37-51) mmHg VBG HCO3 (24-28) mmol/L Sodium 134 L (137-145) mmol/L Potassium (3.5-5.1) mmol/L Chloride 113 H (98-107) mmol/L Carbon Dioxide 7 L* (22-30) mmol/L BUN (9-20) mg/dL Creatinine (0.66-1.25) mg/dL Glucose 222 H (74-99) mg/dL POC Glucose (mg/dL) 192 H 214 H (70-110) mg/dL Calcium 7.3 L (8.4-10.2) mg/dL Phosphorus 1.4 L (2.5-4.5) mg/dL Urine Protein (Negative) Urine Glucose (UA) (Negative) Urine Ketones (Negative) Urine Blood (Negative) Urine Bacteria (None) /hpf Hyaline Casts (0-2) /lpf Urine Mucus (None) /hpf 01/28/23 01/28/23 01/28/23 Range/Units 18:13 19:06 20:00 WBC (3.8-10.6) k/uL VBG pH (7.31-7.41) VBG pCO2 (37-51) mmHg VBG HCO3 (24-28) mmol/L Sodium (137-145) mmol/L Potassium (3.5-5.1) mmol/L Chloride (98-107) mmol/L Carbon Dioxide (22-30) mmol/L BUN (9-20) mg/dL Creatinine (0.66-1.25) mg/dL Glucose (74-99) mg/dL POC Glucose (mg/dL) 227 H 206 H 204 H (70-110) mg/dL Calcium (8.4-10.2) mg/dL Phosphorus (2.5-4.5) mg/dL Urine Protein (Negative) Urine Glucose (UA) (Negative) Urine Ketones (Negative) Urine Blood (Negative) Urine Bacteria (None) /hpf Hyaline Casts (0-2) /lpf Urine Mucus (None) /hpf 01/28/23 01/28/23 01/28/23 Range/Units 20:31 21:07 22:03 WBC (3.8-10.6) k/uL VBG pH (7.31-7.41) VBG pCO2 (37-51) mmHg VBG HCO3 (24-28) mmol/L Sodium 133 L (137-145) mmol/L Potassium (3.5-5.1) mmol/L Chloride 112 H (98-107) mmol/L Carbon Dioxide 10 L (22-30) mmol/L BUN (9-20) mg/dL Creatinine (0.66-1.25) mg/dL Glucose 233 H (74-99) mg/dL POC Glucose (mg/dL) 209 H 207 H (70-110) mg/dL Calcium 7.5 L (8.4-10.2) mg/dL Phosphorus (2.5-4.5) mg/dL Urine Protein (Negative) Urine Glucose (UA) (Negative) Urine Ketones (Negative) Urine Blood (Negative) Urine Bacteria (None) /hpf Hyaline Casts (0-2) /lpf Urine Mucus (None) /hpf 01/28/23 01/28/23 01/29/23 Range/Units 23:06 23:57 01:14 WBC (3.8-10.6) k/uL VBG pH (7.31-7.41) VBG pCO2 (37-51) mmHg VBG HCO3 (24-28) mmol/L Sodium (137-145) mmol/L Potassium (3.5-5.1) mmol/L Chloride (98-107) mmol/L Carbon Dioxide (22-30) mmol/L BUN (9-20) mg/dL Creatinine (0.66-1.25) mg/dL Glucose (74-99) mg/dL POC Glucose (mg/dL) 212 H 204 H 176 H (70-110) mg/dL Calcium (8.4-10.2) mg/dL Phosphorus (2.5-4.5) mg/dL Urine Protein (Negative) Urine Glucose (UA) (Negative) Urine Ketones (Negative) Urine Blood (Negative) Urine Bacteria (None) /hpf Hyaline Casts (0-2) /lpf Urine Mucus (None) /hpf 01/29/23 01/29/23 01/29/23 Range/Units 01:15 02:11 03:01 WBC (3.8-10.6) k/uL VBG pH (7.31-7.41) VBG pCO2 (37-51) mmHg VBG HCO3 (24-28) mmol/L Sodium 135 L (137-145) mmol/L Potassium 3.4 L (3.5-5.1) mmol/L Chloride 112 H (98-107) mmol/L Carbon Dioxide 12 L (22-30) mmol/L BUN (9-20) mg/dL Creatinine (0.66-1.25) mg/dL Glucose 168 H (74-99) mg/dL POC Glucose (mg/dL) 159 H 139 H (70-110) mg/dL Calcium 7.7 L (8.4-10.2) mg/dL Phosphorus 1.6 L (2.5-4.5) mg/dL Urine Protein (Negative) Urine Glucose (UA) (Negative) Urine Ketones (Negative) Urine Blood (Negative) Urine Bacteria (None) /hpf Hyaline Casts (0-2) /lpf Urine Mucus (None) /hpf 01/29/23 01/29/23 01/29/23 Range/Units 03:51 03:51 04:17 WBC 12.3 H (3.8-10.6) k/uL VBG pH (7.31-7.41) VBG pCO2 (37-51) mmHg VBG HCO3 (24-28) mmol/L Sodium 134 L (137-145) mmol/L Potassium 3.4 L (3.5-5.1) mmol/L Chloride 111 H (98-107) mmol/L Carbon Dioxide 12 L (22-30) mmol/L BUN (9-20) mg/dL Creatinine (0.66-1.25) mg/dL Glucose 155 H (74-99) mg/dL POC Glucose (mg/dL) 178 H (70-110) mg/dL Calcium 7.6 L (8.4-10.2) mg/dL Phosphorus 1.6 L (2.5-4.5) mg/dL Urine Protein (Negative) Urine Glucose (UA) (Negative) Urine Ketones (Negative) Urine Blood (Negative) Urine Bacteria (None) /hpf Hyaline Casts (0-2) /lpf Urine Mucus (None) /hpf 01/29/23 01/29/23 01/29/23 Range/Units 05:16 06:21 07:05 WBC (3.8-10.6) k/uL VBG pH (7.31-7.41) VBG pCO2 (37-51) mmHg VBG HCO3 (24-28) mmol/L Sodium (137-145) mmol/L Potassium (3.5-5.1) mmol/L Chloride (98-107) mmol/L Carbon Dioxide (22-30) mmol/L BUN (9-20) mg/dL Creatinine (0.66-1.25) mg/dL Glucose (74-99) mg/dL POC Glucose (mg/dL) 187 H 213 H 235 H (70-110) mg/dL Calcium (8.4-10.2) mg/dL Phosphorus (2.5-4.5) mg/dL Urine Protein (Negative) Urine Glucose (UA) (Negative) Urine Ketones (Negative) Urine Blood (Negative) Urine Bacteria (None) /hpf Hyaline Casts (0-2) /lpf Urine Mucus (None) /hpf 01/29/23 01/29/23 01/29/23 Range/Units 07:40 07:41 08:45 WBC (3.8-10.6) k/uL VBG pH (7.31-7.41) VBG pCO2 (37-51) mmHg VBG HCO3 (24-28) mmol/L Sodium 134 L (137-145) mmol/L Potassium 3.4 L (3.5-5.1) mmol/L Chloride 111 H (98-107) mmol/L Carbon Dioxide 12 L (22-30) mmol/L BUN (9-20) mg/dL Creatinine (0.66-1.25) mg/dL Glucose 256 H (74-99) mg/dL POC Glucose (mg/dL) 234 H 248 H (70-110) mg/dL Calcium 7.7 L (8.4-10.2) mg/dL Phosphorus 1.5 L (2.5-4.5) mg/dL Urine Protein (Negative) Urine Glucose (UA) (Negative) Urine Ketones (Negative) Urine Blood (Negative) Urine Bacteria (None) /hpf Hyaline Casts (0-2) /lpf Urine Mucus (None) /hpf Assessment and Plan Assessment: Acute diabetic ketoacidosis secondary to recent nausea, vomiting. Recovered Anion gap metabolic acidosis secondary to above, recovered Hyperkalemia secondary to above, recovered Leukocytosis suspect reactive and secondary to above, improved Acute renal failure secondary to dehydration, recovered Previous admission for DKA in 2019 Former smoker Plan: The patient was seen and evaluated Labs and medications reviewed Continue with the DKA protocol To transition back to his insulin pump Could be transferred out of the ICU later today We will continue to follow I have personally seen and examined the patient, performed the documentation and the assessment and plan as written. Number of minutes spent on the visit: 10.
[2023-01-29 10:05] LABS: Glucose,Whole Blood 292 mg/dL (70-110)
[2023-01-29] MEDS: INSULIN REGULAR 100 UNIT in SODIUM CHLORIDE 0.9% 100 ML IV SCH (10:05)
[2023-01-29 11:15] LABS: Glucose,Whole Blood 261 mg/dL (70-110)
--- NOTE | 2023-01-29 11:43 | P.PN ---
Subjective Progress Note Date: 01/29/23 Patient is a 42-year-old male with a history of insulin-dependent diabetes mellitus on insulin pump who presented to the hospital due to nausea, vomiting, and abdominal pain. In the ER he underwent an extensive evaluation. On arrival he was tachycardic with respiratory rate of 26. He has significant laboratory abnormalities consistent with severe DKA including a white blood cell count of 23.6, sodium 131, potassium 5.9, carbon dioxide less than 5 with inability to complete the anion gap, BUN 23, creatinine 1.69, glucose 676, lactic acid 4. He underwent an ABG which showed a pH of 6.8, CO2 of 18, and bicarbonate of 3. He was given 3 L of Normal saline and was started on an insulin gtt. Maintenance fluids were started with bicarb due to pH being less than 6.9, this was than t ransitioned to normal saline once pH >6.9. Patient seen and examined at bedside. His nausea and abd pain have resolved. He is feeling tired and hungry. We had a very apolinar discussion that he is sylwia to be alive due to the severity of his DKA. Vital signs reviewed General: nontoxic, no distress, appears at stated age Cardiovascular: S1S2 reg, no murmur, positive posterior tibial pulse bilateral, Lungs: CTA bilateral, no rhonchi, no rales , no accessory muscle use Ext: no gross muscle atrophy, no edema b/l lower extremities, no contractures Neuro: CN II-XI grossly intact, no focal neuro deficits Psych: Alert, oriented, appropriate affect Assessment/Plan: Severe DKA Metabolic acidosis related to above Leukocytosis, suspect reactive - continue to insulin gtt due to the continued level of acidosis, q1 hours accucheck. Patient is out of some of his insulin pump supplies so will need to transition to short/long acting combo regiment on discharge. 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 - start on clear liquid diet and advance as tolerated -Electrolytes every 4 hours -Avoid nephrotoxic agents - pulm recs reviewed: continue insulin gtt. Resolved: pseudohyponatremia Hyperkalemia, due to acidosis DIANE Lactic acidosis Imaging: none new Data Review: Labs reviewed and remarkable for white blood cell, 12.3, sodium 134, potassium 3.4, chloride 111, carbon dioxide 12, glucose 292, phosphorus 1.5, calcium 7.7 Labs reviewed and remarkable for temperature 98.7, pulse 79, respirations 16, blood pressure 101/55, O2 sat 96% on room air DVT prophylaxis: Lovenox Discussed with: Patient, nursing Anticipated discharge date: Pending Clinical Course Anticipated discharge place: Pending Clinical Course This dictation was prepared using [employer] voice recognition software. Though every attempt is made to correct errors during dictation some may still exist. Objective - Vital Signs Vital signs: Vital Signs Temp 98.7 F 01/29/23 08:00 Pulse 74 01/29/23 11:00 Resp 20 01/29/23 11:00 BP 101/56 01/29/23 11:00 Pulse Ox 96 01/29/23 11:00 FiO2 Intake & Output 01/28/23 01/29/23 01/29/23 18:59 06:59 18:59 Intake Total 8482.143 3660 1120.668 Output Total 1700 1700 0 Balance -170.168 987 9138.668 Weight 78.199 kg 88.4 kg Intake: IV 1450 2650 1100 D5-0.45% NaCl with KCl 450 1950 600 20Meq/l 1,000 ml @ 150 mls/hr IV .Q6H40M [facility] Rx# :[id number] Magnesium Sulfate-D5w Pmx 100 1 gm In Dextrose/Water 1 100ml.bag @ 100 mls/hr IVPB ONCE ONE Rx#: [id number] Potassium Chloride 10 meq 200 In Water For Injection 1 100ml.bag @ 100 mls/hr IVPB Q1H [facility] Rx#: [id number] Potassium Phosphate 10 400 500 mmol In Sodium Chloride 0 .9% 250 ml @ 125 mls/hr IV Q2H [facility] Rx#:[id number] Sodium Chloride 0.45% 1, 1000 000 ml @ 200 mls/hr IV . Q5H30M [facility] with Sodium Bicarb (1 Meq/ml) 100 ml Rx#:[id number] Intake, IV Titration 79.946 43 20.668 Amount Insulin Regular 100 unit 79.946 43 20.668 In Sodium Chloride 0.9% 100 ml @ 0.1 UNITS/KG/HR 7.898 mls/hr IV .[id number] [facility] Rx#:[id number] Output: Urine 1700 1700 0 Other: Voiding Method Urinal Urinal Urinal # Voids 0 0 - Labs CBC & Chem 7: 01/29/23 03:51 01/29/23 07:40 Labs: Abnormal Lab Results - Last 24 Hours (Table) 01/28/23 01/28/23 01/28/23 Range/Units 11:41 12:20 12:51 WBC (3.8-10.6) k/uL VBG pH 7.07 L* (7.31-7.41) VBG pCO2 15 L* (37-51) mmHg VBG HCO3 4 L* (24-28) mmol/L Sodium (137-145) mmol/L Potassium (3.5-5.1) mmol/L Chloride (98-107) mmol/L Carbon Dioxide (22-30) mmol/L BUN (9-20) mg/dL Glucose (74-99) mg/dL POC Glucose (mg/dL) 349 H (70-110) mg/dL Calcium (8.4-10.2) mg/dL Phosphorus 1.9 L (2.5-4.5) mg/dL 01/28/23 01/28/23 01/28/23 Range/Units 12:51 12:57 14:09 WBC (3.8-10.6) k/uL VBG pH (7.31-7.41) VBG pCO2 (37-51) mmHg VBG HCO3 (24-28) mmol/L Sodium (137-145) mmol/L Potassium (3.5-5.1) mmol/L Chloride 112 H (98-107) mmol/L Carbon Dioxide <5 L* (22-30) mmol/L BUN 22 H (9-20) mg/dL Glucose 321 H (74-99) mg/dL POC Glucose (mg/dL) 305 H 263 H (70-110) mg/dL Calcium (8.4-10.2) mg/dL Phosphorus (2.5-4.5) mg/dL 01/28/23 01/28/23 01/28/23 Range/Units 14:12 15:02 16:13 WBC (3.8-10.6) k/uL VBG pH (7.31-7.41) VBG pCO2 (37-51) mmHg VBG HCO3 (24-28) mmol/L Sodium (137-145) mmol/L Potassium (3.5-5.1) mmol/L Chloride (98-107) mmol/L Carbon Dioxide (22-30) mmol/L BUN (9-20) mg/dL Glucose (74-99) mg/dL POC Glucose (mg/dL) 225 H 200 H 192 H (70-110) mg/dL Calcium (8.4-10.2) mg/dL Phosphorus (2.5-4.5) mg/dL 01/28/23 01/28/23 01/28/23 Range/Units 16:36 17:06 18:13 WBC (3.8-10.6) k/uL VBG pH (7.31-7.41) VBG pCO2 (37-51) mmHg VBG HCO3 (24-28) mmol/L Sodium 134 L (137-145) mmol/L Potassium (3.5-5.1) mmol/L Chloride 113 H (98-107) mmol/L Carbon Dioxide 7 L* (22-30) mmol/L BUN (9-20) mg/dL Glucose 222 H (74-99) mg/dL POC Glucose (mg/dL) 214 H 227 H (70-110) mg/dL Calcium 7.3 L (8.4-10.2) mg/dL Phosphorus 1.4 L (2.5-4.5) mg/dL 01/28/23 01/28/23 01/28/23 Range/Units 19:06 20:00 20:31 WBC (3.8-10.6) k/uL VBG pH (7.31-7.41) VBG pCO2 (37-51) mmHg VBG HCO3 (24-28) mmol/L Sodium 133 L (137-145) mmol/L Potassium (3.5-5.1) mmol/L Chloride 112 H (98-107) mmol/L Carbon Dioxide 10 L (22-30) mmol/L BUN (9-20) mg/dL Glucose 233 H (74-99) mg/dL POC Glucose (mg/dL) 206 H 204 H (70-110) mg/dL Calcium 7.5 L (8.4-10.2) mg/dL Phosphorus (2.5-4.5) mg/dL 01/28/23 01/28/23 01/28/23 Range/Units 21:07 22:03 23:06 WBC (3.8-10.6) k/uL VBG pH (7.31-7.41) VBG pCO2 (37-51) mmHg VBG HCO3 (24-28) mmol/L Sodium (137-145) mmol/L Potassium (3.5-5.1) mmol/L Chloride (98-107) mmol/L Carbon Dioxide (22-30) mmol/L BUN (9-20) mg/dL Glucose (74-99) mg/dL POC Glucose (mg/dL) 209 H 207 H 212 H (70-110) mg/dL Calcium (8.4-10.2) mg/dL Phosphorus (2.5-4.5) mg/dL 01/28/23 01/29/23 01/29/23 Range/Units 23:57 01:14 01:15 WBC (3.8-10.6) k/uL VBG pH (7.31-7.41) VBG pCO2 (37-51) mmHg VBG HCO3 (24-28) mmol/L Sodium 135 L (137-145) mmol/L Potassium 3.4 L (3.5-5.1) mmol/L Chloride 112 H (98-107) mmol/L Carbon Dioxide 12 L (22-30) mmol/L BUN (9-20) mg/dL Glucose 168 H (74-99) mg/dL POC Glucose (mg/dL) 204 H 176 H (70-110) mg/dL Calcium 7.7 L (8.4-10.2) mg/dL Phosphorus 1.6 L (2.5-4.5) mg/dL 01/29/23 01/29/23 01/29/23 Range/Units 02:11 03:01 03:51 WBC 12.3 H (3.8-10.6) k/uL VBG pH (7.31-7.41) VBG pCO2 (37-51) mmHg VBG HCO3 (24-28) mmol/L Sodium (137-145) mmol/L Potassium (3.5-5.1) mmol/L Chloride (98-107) mmol/L Carbon Dioxide (22-30) mmol/L BUN (9-20) mg/dL Glucose (74-99) mg/dL POC Glucose (mg/dL) 159 H 139 H (70-110) mg/dL Calcium (8.4-10.2) mg/dL Phosphorus (2.5-4.5) mg/dL 01/29/23 01/29/23 01/29/23 Range/Units 03:51 04:17 05:16 WBC (3.8-10.6) k/uL VBG pH (7.31-7.41) VBG pCO2 (37-51) mmHg VBG HCO3 (24-28) mmol/L Sodium 134 L (137-145) mmol/L Potassium 3.4 L (3.5-5.1) mmol/L Chloride 111 H (98-107) mmol/L Carbon Dioxide 12 L (22-30) mmol/L BUN (9-20) mg/dL Glucose 155 H (74-99) mg/dL POC Glucose (mg/dL) 178 H 187 H (70-110) mg/dL Calcium 7.6 L (8.4-10.2) mg/dL Phosphorus 1.6 L (2.5-4.5) mg/dL 01/29/23 01/29/23 01/29/23 Range/Units 06:21 07:05 07:40 WBC (3.8-10.6) k/uL VBG pH (7.31-7.41) VBG pCO2 (37-51) mmHg VBG HCO3 (24-28) mmol/L Sodium 134 L (137-145) mmol/L Potassium 3.4 L (3.5-5.1) mmol/L Chloride 111 H (98-107) mmol/L Carbon Dioxide 12 L (22-30) mmol/L BUN (9-20) mg/dL Glucose 256 H (74-99) mg/dL POC Glucose (mg/dL) 213 H 235 H (70-110) mg/dL Calcium 7.7 L (8.4-10.2) mg/dL Phosphorus 1.5 L (2.5-4.5) mg/dL 01/29/23 01/29/23 01/29/23 Range/Units 07:41 08:45 10:03 WBC (3.8-10.6) k/uL VBG pH (7.31-7.41) VBG pCO2 (37-51) mmHg VBG HCO3 (24-28) mmol/L Sodium (137-145) mmol/L Potassium (3.5-5.1) mmol/L Chloride (98-107) mmol/L Carbon Dioxide (22-30) mmol/L BUN (9-20) mg/dL Glucose (74-99) mg/dL POC Glucose (mg/dL) 234 H 248 H 292 H (70-110) mg/dL Calcium (8.4-10.2) mg/dL Phosphorus (2.5-4.5) mg/dL 01/29/23 Range/Units 11:13 WBC (3.8-10.6) k/uL VBG pH (7.31-7.41) VBG pCO2 (37-51) mmHg VBG HCO3 (24-28) mmol/L Sodium (137-145) mmol/L Potassium (3.5-5.1) mmol/L Chloride (98-107) mmol/L Carbon Dioxide (22-30) mmol/L BUN (9-20) mg/dL Glucose (74-99) mg/dL POC Glucose (mg/dL) 261 H (70-110) mg/dL Calcium (8.4-10.2) mg/dL Phosphorus (2.5-4.5) mg/dL
[2023-01-29 12:09] LABS: Glucose,Whole Blood 262 mg/dL (70-110)
[2023-01-29 13:06] LABS: Glucose,Whole Blood 257 mg/dL (70-110)
[2023-01-29 13:54] LABS: African American GFR (CKD) >90 (>60 ml/min/1.73 sqM); Anion Gap 9 mmol/L; Blood Urea Nitrogen 10 mg/dL (9-20); Calcium 7.7 mg/dL (8.4-10.2); Carbon Dioxide 15 mmol/L (22-30); Chloride 110 mmol/L (98-107); Glucose 267 mg/dL (74-99); Non-African American GFR(CKD) >90 (>60 ml/min/1.73 sqM); Potassium 3.4 mmol/L (3.5-5.1); Sodium 134 mmol/L (137-145)
[2023-01-29 13:55] LABS: Glucose,Whole Blood 231 mg/dL (70-110)
[2023-01-29] MEDS ORDERED: DEXTROSE 50% SYRINGE 50 ML IVP PRN ×2 (14:24)
[2023-01-29] MEDS ORDERED: INSULIN DETEMIR (LEVEMIR) 100 UNIT/ML SYR SQ ONE (14:40)
[2023-01-29 16:58] LABS: Glucose,Whole Blood 253 mg/dL (70-110)
[2023-01-29] MEDS: INSULIN ASPART (NovoLOG) 100 UNIT/ML VIAL SQ SCH ×3 (17:00→20:17)
[2023-01-29 20:11] LABS: Glucose,Whole Blood 198 mg/dL (70-110)
[2023-01-29] MEDS: INSULIN DETEMIR (LEVEMIR) 100 UNIT/ML SYR SQ SCH (20:16)
[2023-01-29 23:43] LABS: African American GFR (CKD) >90 (>60 ml/min/1.73 sqM); Anion Gap 11 mmol/L; Blood Urea Nitrogen 9 mg/dL (9-20); Carbon Dioxide 18 mmol/L (22-30); Chloride 105 mmol/L (98-107); Glucose 302 mg/dL (74-99); Magnesium 2.1 mg/dL (1.6-2.3); Non-African American GFR(CKD) >90 (>60 ml/min/1.73 sqM); Phosphorus 1.7 mg/dL (2.5-4.5); Potassium 3.2 mmol/L (3.5-5.1); Sodium 134 mmol/L (137-145)
[2023-01-30] MEDS: POTASSIUM CHLORIDE ER 20 MEQ TAB.ER PO SCH ×4 (01:16→11:45)
[2023-01-30] MEDS: POTAS-SOD-PHOS 278-164-250 MG 1 EACH PACKET PO SCH ×4 (01:16→21:14)
[2023-01-30 03:24] LABS: Glucose,Whole Blood 258 mg/dL (70-110)
[2023-01-30 05:59] LABS: HCT 37.2 % (39.0-53.0); HGB 13.2 gm/dL (13.0-17.5); MCH 31.1 pg (25.0-35.0); MCHC 35.6 g/dL (31.0-37.0); MCV 87.4 fL (80.0-100.0); Mean Platelet Volume 7.8; Platelet Count 136 k/uL (150-450); RBC 4.25 m/uL (4.30-5.90); RDW 12.9 % (11.5-15.5); WBC 6.9 k/uL (3.8-10.6)
[2023-01-30 06:11] LABS: African American GFR (CKD) >90 (>60 ml/min/1.73 sqM); Anion Gap 12 mmol/L; Blood Urea Nitrogen 10 mg/dL (9-20); Calcium 8.2 mg/dL (8.4-10.2); Carbon Dioxide 16 mmol/L (22-30); Chloride 106 mmol/L (98-107); Glucose 259 mg/dL (74-99); Non-African American GFR(CKD) >90 (>60 ml/min/1.73 sqM); Potassium 3.4 mmol/L (3.5-5.1); Sodium 134 mmol/L (137-145)
[2023-01-30 06:41] LABS: Glucose,Whole Blood 267 mg/dL (70-110)
[2023-01-30] MEDS: INSULIN ASPART (NovoLOG) 100 UNIT/ML VIAL SQ SCH ×8 (06:43→21:13)
[2023-01-30] MEDS: INSULIN DETEMIR (LEVEMIR) 100 UNIT/ML SYR SQ SCH ×2 (06:43→21:13)
--- NOTE | 2023-01-30 09:33 | P.PN ---
Subjective Progress Note Date: 01/30/23 This is a 42-year-old male patient with a known history of insulin-dependent diabetes mellitus that presented to the emergency room early this morning with a one-day history of abdominal pain, nausea vomiting and excessive thirst. He was found to be in severe metabolic acidosis. His arterial blood gases on room air revealed a pO2 of 149, pCO2 less than 15 and a pH of 6.81. Blood glucose was greater than 600. Bicarb less than 5. White count 23.6. Hemoglobin 15.5. Sodium 131. Potassium 5.9. BUN 23. Creatinine 1.96. Lactic acid 4.0. Lipase 44. Urinalysis with 4+ glucose 4+ ketones moderate blood and acetone positive. He was initiated on the DKA protocol. He has received 3 L of fluids r esuscitation thus far. Received an amp of bicarb and 7 units of regular insulin. He is seen today in the intensive emergency department. He has restless, tachypneic, tachycardic. Maintaining good O2 saturations in the high 90s on room air. He's been initiated on Normal saline at 200 ML's per hour. Normal saline with 2 A of bicarb at 200 ML's per hour. Insulin drip at 0.1 units per kilogram per hour. Lovenox for DVT prophylaxis. Computed tomography scan of the abdomen and pelvis revealed no suspicious acute changes. The patient is seen today 01/29/2023 in follow-up in the intensive care unit. He is currently awake and alert in no acute distress. He 90s on room air. He is on insulin drip at 2.4 units per hour. He has D5.45 normal saline with 20 mEq of KCl at 150 ML's per hour. Sodium 134. Potassium 3.4. Bicarb 12. Anion gap 11. BUN 12. Creatinine 0.70. Glucose 256. He is on Lovenox for DVT prophylaxis. Patient is seen today 01/30/2023 in follow-up in the intensive care unit. He is regular medical floor overflow. He is awake and alert in no acute distress. He is maintaining O2 saturations in the 90s on room air. No IV fluids. White count 6.9. Hemoglobin 13.2. Platelets 136. Sodium 134. Potassium 3.4. Bicarb 16. Anion gap 12. BUN 10. Creatinine 0.62. Glucose 259. He is currently on Levemir and NovoLog sliding scale. Objective - Vital Signs Vital signs: Vital Signs Temp 97.5 F L 01/30/23 01:00 Pulse 85 01/30/23 01:00 Resp 15 01/30/23 01:00 BP 127/89 01/30/23 01:00 Pulse Ox 95 01/30/23 01:00 FiO2 Intake & Output 01/29/23 01/30/23 01/30/23 18:59 06:59 18:59 Intake Total 1879.591 Output Total 800 Balance 1079.591 Intake: IV 1850 D5-0.45% NaCl with KCl 1100 20Meq/l 1,000 ml @ 150 mls/hr IV .[id number] NARGIS Rx# :[id number] Potassium Phosphate 10 750 mmol In Sodium Chloride 0 .9% 250 ml @ 125 mls/hr IV Q2H NARGIS Rx#:[id number] Intake, IV Titration 29.591 Amount Insulin Regular 100 unit 29.591 In Sodium Chloride 0.9% 100 ml @ 0.1 UNITS/KG/HR 7.898 mls/hr IV .[id number] NARGIS Rx#:[id number] Output: Urine 800 Other: Voiding Method Urinal Urinal # Voids 1 3 - Exam GENERAL EXAM: Alert, pleasant 42-year-old male, on room air, comfortable in no apparent distress. HEAD: Normocephalic. EYES: Normal reaction of pupils, equal size. NOSE: Clear with pink turbinates. THROAT: No erythema or exudates. NECK: No masses, no JVD. CHEST: No chest wall deformity. LUNGS: Equal air entry with no crackles, wheeze, rhonchi or dullness. CVS: S1 and S2 normal with no audible murmur, regular rhythm. ABDOMEN: No hepatosplenomegaly, normal bowel sounds, no guarding or rigidity. SPINE: No scoliosis or deformity SKIN: No rashes CENTRAL NERVOUS SYSTEM: No focal deficits, tone is normal in all 4 extremities. EXTREMITIES: There is no peripheral edema. No clubbing, no cyanosis. Peripheral pulses are intact. - Labs CBC & Chem 7: 01/30/23 05:48 01/30/23 05:48 Labs: Abnormal Lab Results - Last 24 Hours (Table) 01/29/23 01/29/23 01/29/23 Range/Units 10:03 11:13 12:07 RBC (4.30-5.90) m/uL Hct (39.0-53.0) % Plt Count (150-450) k/uL Sodium (137-145) mmol/L Potassium (3.5-5.1) mmol/L Chloride (98-107) mmol/L Carbon Dioxide (22-30) mmol/L Creatinine (0.66-1.25) mg/dL Glucose (74-99) mg/dL POC Glucose (mg/dL) 292 H 261 H 262 H (70-110) mg/dL Calcium (8.4-10.2) mg/dL Phosphorus (2.5-4.5) mg/dL 01/29/23 01/29/23 01/29/23 Range/Units 13:02 13:04 13:53 RBC (4.30-5.90) m/uL Hct (39.0-53.0) % Plt Count (150-450) k/uL Sodium 134 L (137-145) mmol/L Potassium 3.4 L (3.5-5.1) mmol/L Chloride 110 H (98-107) mmol/L Carbon Dioxide 15 L (22-30) mmol/L Creatinine (0.66-1.25) mg/dL Glucose 267 H (74-99) mg/dL POC Glucose (mg/dL) 257 H 231 H (70-110) mg/dL Calcium 7.7 L (8.4-10.2) mg/dL Phosphorus (2.5-4.5) mg/dL 01/29/23 01/29/23 01/29/23 Range/Units 16:57 20:09 23:06 RBC (4.30-5.90) m/uL Hct (39.0-53.0) % Plt Count (150-450) k/uL Sodium 134 L (137-145) mmol/L Potassium 3.2 L (3.5-5.1) mmol/L Chloride (98-107) mmol/L Carbon Dioxide 18 L (22-30) mmol/L Creatinine (0.66-1.25) mg/dL Glucose 302 H (74-99) mg/dL POC Glucose (mg/dL) 253 H 198 H (70-110) mg/dL Calcium 8.0 L (8.4-10.2) mg/dL Phosphorus 1.7 L (2.5-4.5) mg/dL 01/30/23 01/30/23 01/30/23 Range/Units 03:21 05:48 05:48 RBC 4.25 L (4.30-5.90) m/uL Hct 37.2 L (39.0-53.0) % Plt Count 136 L (150-450) k/uL Sodium 134 L (137-145) mmol/L Potassium 3.4 L (3.5-5.1) mmol/L Chloride (98-107) mmol/L Carbon Dioxide 16 L (22-30) mmol/L Creatinine 0.62 L (0.66-1.25) mg/dL Glucose 259 H (74-99) mg/dL POC Glucose (mg/dL) 258 H (70-110) mg/dL Calcium 8.2 L (8.4-10.2) mg/dL Phosphorus (2.5-4.5) mg/dL 01/30/23 Range/Units 06:39 RBC (4.30-5.90) m/uL Hct (39.0-53.0) % Plt Count (150-450) k/uL Sodium (137-145) mmol/L Potassium (3.5-5.1) mmol/L Chloride (98-107) mmol/L Carbon Dioxide (22-30) mmol/L Creatinine (0.66-1.25) mg/dL Glucose (74-99) mg/dL POC Glucose (mg/dL) 267 H (70-110) mg/dL Calcium (8.4-10.2) mg/dL Phosphorus (2.5-4.5) mg/dL Assessment and Plan Assessment: Acute diabetic ketoacidosis secondary to recent nausea, vomiting. Recovered Anion gap metabolic acidosis secondary to above, recovered Hyperkalemia secondary to above, recovered Leukocytosis suspect reactive and secondary to above, improved Acute renal failure secondary to dehydration, recovered Previous admission for DKA in 2019 Former smoker Plan: The patient was seen and evaluated Labs and medications reviewed He remains a medical floor overflow patient We will see as needed I have personally seen and examined the patient, performed the documentation and the assessment and plan as written. Number of minutes spent on the visit: 10.
[2023-01-30] MEDS: PANTOPRAZOLE 40 MG/10 ML VIAL IVP SCH (09:46)
[2023-01-30] MEDS: ENOXAPARIN 40 MG/0.4 ML SYRINGE SQ SCH (09:46)
[2023-01-30 11:27] LABS: Glucose,Whole Blood 333 mg/dL (70-110)
[2023-01-30 13:57] LABS: Glucose,Whole Blood 342 mg/dL (70-110)
--- NOTE | 2023-01-30 15:19 | P.PN ---
Subjective Progress Note Date: 01/30/23 (delayed charting seen at 1030) Patient is a 42-year-old male with a history of insulin-dependent diabetes mellitus on insulin pump who presented to the hospital due to nausea, vomiting, and abdominal pain. In the ER he underwent an extensive evaluation. On arrival he was tachycardic with respiratory rate of 26. He has significant laboratory abnormalities consistent with severe DKA including a white blood cell count of 23.6, sodium 131, potassium 5.9, carbon dioxide less than 5 with inability to complete the anion gap, BUN 23, creatinine 1.69, glucose 676, lactic acid 4. He underwent an ABG which showed a pH of 6.8, CO2 of 18, and bicarbonate of 3. He was given 3 L of Normal saline and was started on an insulin gtt. Maintenance fluids were started with bicarb due to pH being less than 6.9, this was than transitioned to normal saline once pH >6.9. Patient seen and examined at bedside. He is feeling well today. His appetite has returned. He has no nausea or vomiting. No chest pain or shortness of breath. No other complaints currently. Vital signs reviewed General: nontoxic, no distress, appears at stated age Cardiovascular: S1S2 reg, no murmur, positive posterior tibial pulse bilateral, Lungs: CTA bilateral, no rhonchi, no rales , no accessory muscle use Ext: no gross muscle atrophy, no edema b/l lower extremities, no contractures Neuro: CN II-XI grossly intact, no focal neuro deficits Psych: Alert, oriented, appropriate affect Assessment/Plan: Severe DKA DM 2 poorly controlled with A1C 11.5 Metabolic acidosis related to above Leukocytosis, suspect reactive - reviewed post parandial BS at it was still elevated with a total of 9+4 units, increase fixed dose to 12 units continue with sliding scale, Levemir increased to 15 units BID - Patient out of insulin pump supplies and has not seen his special effects artist or PCP in quite some time, he will short/long acting combo on discharge. - repeat BMP in AM -Pulmonary note reviewed: Patient can come out of the ICU to general medical floor, will see as needed. Hypokalemia -Potassium 40 mEq orally Resolved: pseudohyponatremia Hyperkalemia, due to acidosis DIANE Lactic acidosis Imaging: none new Data Review: Vitals reviewed patient has been afebrile for the last 24 hours. Pulses have been ranging from 69 up to 85, respirations 14-16, blood pressure is well controlled with morning blood pressure 127/89, O2 sat 95% on room air Labs reviewed and remarkable for platelets of 136, sodium 134, potassium 3.4, carbon dioxide 16 with anion gap of 12, creatinine 0.62, a.m. fasting blood sugar was 267 and 8 PM's was 198. Hemoglobin A1c 11.5 DVT prophylaxis: Lovenox Discussed with: Patient, nursing Anticipated discharge date: Pending Clinical Course Anticipated discharge place: Pending Clinical Course This dictation was prepared using [employer] voice recognition software. Though every attempt is made to correct errors during dictation some may still exist. Objective - Vital Signs Vital signs: Vital Signs Temp 97.9 F 01/30/23 14:00 Pulse 69 01/30/23 14:00 Resp 16 01/30/23 14:00 BP 128/81 01/30/23 14:00 Pulse Ox 97 01/30/23 14:00 FiO2 Intake & Output 01/29/23 01/30/23 01/30/23 18:59 06:59 18:59 Intake Total 1879.591 Output Total 800 Balance 1079.591 Intake: IV 1850 D5-0.45% NaCl with KCl 1100 20Meq/l 1,000 ml @ 150 mls/hr IV .[id number] [facility] Rx# :[id number] Potassium Phosphate 10 750 mmol In Sodium Chloride 0 .9% 250 ml @ 125 mls/hr IV Q2H [facility] Rx#:[id number] Intake, IV Titration 29.591 Amount Insulin Regular 100 unit 29.591 In Sodium Chloride 0.9% 100 ml @ 0.1 UNITS/KG/HR 7.898 mls/hr IV .[id number] [facility]ARGIS Rx#:[id number] Output: Urine 800 Other: Voiding Method Urinal Urinal Urinal # Voids 1 3 - Labs CBC & Chem 7: 01/30/23 05:48 01/30/23 05:48 Labs: Abnormal Lab Results - Last 24 Hours (Table) 01/29/23 01/29/23 01/29/23 Range/Units 16:57 20:09 23:06 RBC (4.30-5.90) m/uL Hct (39.0-53.0) % Plt Count (150-450) k/uL Sodium 134 L (137-145) mmol/L Potassium 3.2 L (3.5-5.1) mmol/L Carbon Dioxide 18 L (22-30) mmol/L Creatinine (0.66-1.25) mg/dL Glucose 302 H (74-99) mg/dL POC Glucose (mg/dL) 253 H 198 H (70-110) mg/dL Hemoglobin A1c (<=6.0) % Calcium 8.0 L (8.4-10.2) mg/dL Phosphorus 1.7 L (2.5-4.5) mg/dL 01/30/23 01/30/23 01/30/23 Range/Units 03:21 05:48 05:48 RBC 4.25 L (4.30-5.90) m/uL Hct 37.2 L (39.0-53.0) % Plt Count 136 L (150-450) k/uL Sodium 134 L (137-145) mmol/L Potassium 3.4 L (3.5-5.1) mmol/L Carbon Dioxide 16 L (22-30) mmol/L Creatinine 0.62 L (0.66-1.25) mg/dL Glucose 259 H (74-99) mg/dL POC Glucose (mg/dL) 258 H (70-110) mg/dL Hemoglobin A1c (<=6.0) % Calcium 8.2 L (8.4-10.2) mg/dL Phosphorus (2.5-4.5) mg/dL 01/30/23 01/30/23 01/30/23 Range/Units 05:51 06:39 11:26 RBC (4.30-5.90) m/uL Hct (39.0-53.0) % Plt Count (150-450) k/uL Sodium (137-145) mmol/L Potassium (3.5-5.1) mmol/L Carbon Dioxide (22-30) mmol/L Creatinine (0.66-1.25) mg/dL Glucose (74-99) mg/dL POC Glucose (mg/dL) 267 H 333 H (70-110) mg/dL Hemoglobin A1c 11.5 H (<=6.0) % Calcium (8.4-10.2) mg/dL Phosphorus (2.5-4.5) mg/dL 01/30/23 Range/Units 13:56 RBC (4.30-5.90) m/uL Hct (39.0-53.0) % Plt Count (150-450) k/uL Sodium (137-145) mmol/L Potassium (3.5-5.1) mmol/L Carbon Dioxide (22-30) mmol/L Creatinine (0.66-1.25) mg/dL Glucose (74-99) mg/dL POC Glucose (mg/dL) 342 H (70-110) mg/dL Hemoglobin A1c (<=6.0) % Calcium (8.4-10.2) mg/dL Phosphorus (2.5-4.5) mg/dL
[2023-01-30 16:33] LABS: Glucose,Whole Blood 293 mg/dL (70-110)
[2023-01-30 21:10] LABS: Glucose,Whole Blood 319 mg/dL (70-110)
[2023-01-31 06:12] LABS: HCT 39.5 % (39.0-53.0); HGB 13.8 gm/dL (13.0-17.5); MCH 30.7 pg (25.0-35.0); MCHC 34.8 g/dL (31.0-37.0); MCV 88.2 fL (80.0-100.0); Mean Platelet Volume 8.1; Platelet Count 122 k/uL (150-450); RBC 4.48 m/uL (4.30-5.90); RDW 12.7 % (11.5-15.5); WBC 5.2 k/uL (3.8-10.6)
[2023-01-31 06:26] LABS: Glucose,Whole Blood 303 mg/dL (70-110)
[2023-01-31 06:32] LABS: African American GFR (CKD) >90 (>60 ml/min/1.73 sqM); Blood Urea Nitrogen 13 mg/dL (9-20); Calcium 8.8 mg/dL (8.4-10.2); Carbon Dioxide 27 mmol/L (22-30); Glucose 325 mg/dL (74-99); Non-African American GFR(CKD) >90 (>60 ml/min/1.73 sqM); Phosphorus 2.9 mg/dL (2.5-4.5)
[2023-01-31 06:49] LABS: Anion Gap 6 mmol/L; Chloride 98 mmol/L (98-107); Potassium 3.7 mmol/L (3.5-5.1); Sodium 131 mmol/L (137-145)
[2023-01-31] MEDS: INSULIN ASPART (NovoLOG) 100 UNIT/ML VIAL SQ SCH ×4 (06:50→11:51)
[2023-01-31] MEDS: INSULIN DETEMIR (LEVEMIR) 100 UNIT/ML SYR SQ SCH (06:50)
--- NOTE | 2023-01-31 08:22 | P.PN ---
Subjective Progress Note Date: 01/31/23 This is a 42-year-old male patient with a known history of insulin-dependent diabetes mellitus that presented to the emergency room early this morning with a one-day history of abdominal pain, nausea vomiting and excessive thirst. He was found to be in severe metabolic acidosis. His arterial blood gases on room air revealed a pO2 of 149, pCO2 less than 15 and a pH of 6.81. Blood glucose was greater than 600. Bicarb less than 5. White count 23.6. Hemoglobin 15.5. Sodium 131. Potassium 5.9. BUN 23. Creatinine 1.96. Lactic acid 4.0. Lipase 44. Urinalysis with 4+ glucose 4+ ketones moderate blood and acetone positive. He was initiated on the DKA protocol. He has received 3 L of fluids resuscitation thus far. Received an amp of bicarb and 7 units of regular insulin. He is seen today in the intensive emergency department. He has restless, tachypneic, tachycardic. Maintaining good O2 saturations in the high 90s on room air. He's been initiated on Normal saline at 200 ML's per hour. Normal saline with 2 A of bicarb at 200 ML's per hour. Insulin drip at 0.1 units per kilogram per hour. Lovenox for DVT prophylaxis. Computed tomography scan of the abdomen and pelvis revealed no suspicious acute changes. The patient is seen today 01/29/2023 in follow-up in the intensive care unit. He is currently awake and alert in no acute distress. He 90s on room air. He is on insulin drip at 2.4 units per hour. He has D5.45 normal saline with 20 mEq of KCl at 150 ML's per hour. Sodium 134. Potassium 3.4. Bicarb 12. Anion gap 11. BUN 12. Creatinine 0.70. Glucose 256. He is on Lovenox for DVT prophylaxis. Patient is seen today 01/30/2023 in follow-up in the intensive care unit. He is regular medical floor overflow. He is awake and alert in no acute distress. He is maintaining O2 saturations in the 90s on room air. No IV fluids. White count 6.9. Hemoglobin 13.2. Platelets 136. Sodium 134. Potassium 3.4. Bicarb 16. Anion gap 12. BUN 10. Creatinine 0.62. Glucose 259. He is currently on Levemir and NovoLog sliding scale. 01/31/2023, the patient is fully alert and awake and communicating. His tolerating his diet. He had a full breakfast this morning. He was on an insulin pump on outpatient basis and he prefers to go back to long-acting in [facility]. His arson and bomb investigator is Dr. Kranthi Bills. Meanwhile, here in the hospital, the patient was switched to Levemir insulin 15 units twice a day and is also on NovoLog sliding scale coverage and his taken also 12 units of NovoLog scheduled with meals. Morning blood sugar is still elevated at 303. Renal function stable with a creatinine of 0.6. Sodium level is at 131. His serum bicarb is 27 and anion gap is at 6. The white cell cause of 5.2 with a hemoglobin of 13.8. No nausea. No emesis. No abdominal pain. No altered mentation. No other significant events overnight. The plan is to regulate his blood sugar and hopefully discharge in home today. Objective - Vital Signs Vital signs: Vital Signs Temp 97.6 F 01/31/23 02:00 Pulse 70 01/31/23 02:00 Resp 20 01/31/23 02:00 BP 128/76 01/31/23 02:00 Pulse Ox 99 01/31/23 02:00 FiO2 Intake & Output 01/30/23 01/31/23 01/31/23 18:59 06:59 18:59 Other: Voiding Method Urinal Toilet # Voids 4 2 - Exam GENERAL EXAM: Alert, pleasant 42-year-old male, on room air, comfortable in no a pparent distress. HEAD: Normocephalic. EYES: Normal reaction of pupils, equal size. NOSE: Clear with pink turbinates. THROAT: No erythema or exudates. NECK: No masses, no JVD. CHEST: No chest wall deformity. LUNGS: Equal air entry with no crackles, wheeze, rhonchi or dullness. CVS: S1 and S2 normal with no audible murmur, regular rhythm. ABDOMEN: No hepatosplenomegaly, normal bowel sounds, no guarding or rigidity. SPINE: No scoliosis or deformity SKIN: No rashes CENTRAL NERVOUS SYSTEM: No focal deficits, tone is normal in all 4 extremities. EXTREMITIES: There is no peripheral edema. No clubbing, no cyanosis. Peripheral pulses are intact. - Labs CBC & Chem 7: 01/31/23 05:56 01/31/23 05:56 Labs: Abnormal Lab Results - Last 24 Hours (Table) 01/30/23 01/30/23 01/30/23 Range/Units 05:51 11:26 13:56 Plt Count (150-450) k/uL Sodium (137-145) mmol/L Creatinine (0.66-1.25) mg/dL Glucose (74-99) mg/dL POC Glucose (mg/dL) 333 H 342 H (70-110) mg/dL Hemoglobin A1c 11.5 H (<=6.0) % 01/30/23 01/30/23 01/31/23 Range/Units 16:31 21:08 05:56 Plt Count 122 L (150-450) k/uL Sodium (137-145) mmol/L Creatinine (0.66-1.25) mg/dL Glucose (74-99) mg/dL POC Glucose (mg/dL) 293 H 319 H (70-110) mg/dL Hemoglobin A1c (<=6.0) % 01/31/23 01/31/23 Range/Units 05:56 06:24 Plt Count (150-450) k/uL Sodium 131 L (137-145) mmol/L Creatinine 0.61 L (0.66-1.25) mg/dL Glucose 325 H (74-99) mg/dL POC Glucose (mg/dL) 303 H (70-110) mg/dL Hemoglobin A1c (<=6.0) % Assessment and Plan Plan: Acute diabetic ketoacidosis secondary to recent nausea, vomiting. Recovered, his gap is closed and electrodes are normal. Nevertheless, the patient's sugars are still elevated while being on Levemir Type 1 diabetes mellitus, was utilizing an insulin pump, wants to go back to long-acting insulin. Anion gap metabolic acidosis secondary to above, recovered Hyperkalemia secondary to above, recovered Leukocytosis suspect reactive and secondary to above, improved Acute renal failure secondary to dehydration, recovered Previous admission for DKA in 2019 Former smoker Plan: Increase the maintenance of Levemir by 10 units and give the patient 22 units twice a day and continue with a sliding scale coverage. Continue with the NovoLog coverage with meals The patient can leave the intensive care unit today and possibly be discharged within the next 24 hours. We'll coordinate this with the medical team Is on 4 regular diet at this point in time. Carb consistent diet.
[2023-01-31] MEDS: PANTOPRAZOLE 40 MG/10 ML VIAL IVP SCH (09:31)
[2023-01-31] MEDS: POTAS-SOD-PHOS 278-164-250 MG 1 EACH PACKET PO SCH (09:31)
[2023-01-31] MEDS: ENOXAPARIN 40 MG/0.4 ML SYRINGE SQ SCH (09:31)
[2023-01-31 10:03] VITALS: BP 132/75; PULSE 76; RESP 18; TEMP 98.4
--- NOTE | 2023-01-31 10:20 | P.DS ---
Providers Date of admission: 01/28/23 10:08 Expected date of discharge: 01/31/23 Attending physician: Ofelia Reyes DO Consults: 01/28/23 07:46 Consult Physician Urgent Consulting Provider: Chin Esquivel Reason/Comments: ICU Do you want consulting provider notified?: Already Contacted Primary care physician: Thaddeus [facility] Course: Severe DKA DM 2 poorly controlled with A1C 11.5 Metabolic acidosis related to above Leukocytosis, suspect reactive Hypokalemia pseudohyponatremia Hyperkalemia, due to acidosis DIANE Lactic acidosis Hospital Course: Patient is a 42-year-old male with a history of insulin-dependent diabetes mellitus on insulin pump who presented to the hospital due to nausea, vomiting, and abdominal pain. In the ER he underwent an extensive evaluation. On arrival he was tachycardic with respiratory rate of 26. He has significant laboratory abnormalities consistent with severe DKA including a white blood cell count of 23.6, sodium 131, potassium 5.9, carbon dioxide less than 5 with inability to complete the anion gap, BUN 23, creatinine 1.69, glucose 676, lactic acid 4. He underwent an ABG which showed a pH of 6.8, CO2 of 18, and bicarbonate of 3. He was given 3 L of Normal saline and was started on an insulin gtt. Maintenance fluids were started with bicarb due to pH being less than 6.9, this was than transitioned to normal saline once pH >6.9. Pt was successfully transitioned to SQ insulin and was prescribed levemir, aspart on discharge with the following regimen: levemir 22U BID + 9U Aspart AC-TID + Aspart Sliding Scale. He was informed on importance of following up with PCP for further titration. I spent 40 minutes coordinating this discharge on 01/31 General: nontoxic, no distress, appears at stated age Lungs: symmetric chest expansion , no accessory muscle use Ext: no gross muscle atrophy, no edema b/l lower extremities, no contractures Neuro: CN II-XI grossly intact, no focal neuro deficits Psych: Alert, oriented, appropriate affect Patient Condition at Discharge: Good Plan - Discharge Summary Discharge Rx Participant: Yes New Discharge Prescriptions: New INSULIN ASPART (NovoLOG) [NovoLOG (formulary)] 0 unit SQ ACHS #1 each Insulin Detemir (Levemir) [Levemir] 22 unit SQ BID@0700,2100 #1 each INSULIN ASPART (NovoLOG) [NovoLOG (formulary)] 12 unit SQ AC-TID #1 each Syringe-Needle,Insulin,0.5 ml [Insulin Syringe 28G 1/2" 0.5ML] 1 syr SQ DIRECTED #120 each Discontinued INSULIN LISPRO (For Pump) [humaLOG (For Pump)] 0.01 units SQ-PUMP CONTINUOUS Discharge Medication List INSULIN ASPART (NovoLOG) [NovoLOG (formulary)] 0 unit SQ ACHS #1 each 01/31/23 [Rx] INSULIN ASPART (NovoLOG) [NovoLOG (formulary)] 12 unit SQ AC-TID #1 each 01/31/23 [Rx] Insulin Detemir (Levemir) [Levemir] 22 unit SQ BID@0700,2100 #1 each 01/31/23 [Rx] Syringe-Needle,Insulin,0.5 ml [Insulin Syringe 28G 1/2" 0.5ML] 1 syr SQ DIRECTED #120 each 01/31/23 [Rx] Follow up Appointment(s)/Referral(s): Thaddeus Chang MD [Primary Care Provider] - 1-2 days Discharge Disposition: HOME SELF-CARE
[2023-01-31] MEDS ORDERED: INSULIN DETEMIR (LEVEMIR) 100 UNIT/ML SYR SQ ONE (11:30)
[2023-01-31 11:47] LABS: Glucose,Whole Blood 352 mg/dL (70-110)
[2023-01-31] MEDS ORDERED: INSULIN DETEMIR (LEVEMIR) 100 UNIT/ML SYR SQ SCH (21:00)
== END 2023-01-31 15:47 | disposition home or self-care (01) | DRG 420 ==
LOC: EC 05:53 → 2SICU 10:08
PROVIDERS: ADMIT Internal Medicine; ATTEND Internal Medicine
DX: E11.10 Type 2 diabetes mellitus with ketoacidosis without coma (principal); E87.5 Hyperkalemia; N17.9 Acute kidney failure, unspecified; R06.03 Acute respiratory distress; D72.829 Elevated white blood cell count, unspecified; E87.6 Hypokalemia; E86.0 Dehydration; Z79.4 Long term (current) use of insulin; Z96.41 Presence of insulin pump (external) (internal); Z87.891 Personal history of nicotine dependence; Z59.00 Homelessness unspecified
CPT/HCPCS: 36415; 36600; 74176; 80048; 80051; 80053; 81001; 82009; 82150; 82565; 82803; 82805; 82947; 83036; 83605; 83690; 83735; 84100; 84132; 84484; 84520; 85025; 85027; 93005; 96361; 96374; 96375; 99291

== ENCOUNTER → 2023-07-07 | Outpatient (CLI) | payer OTHER ==
--- NOTE | 2023-07-07 09:21 | US ---
EXAMINATION TYPE: US liver DATE OF EXAM: 07/07/2023 COMPARISON: 01/28/2023 CLINICAL INDICATION: Male, 42 years old with history of R74.8 ABNORMAL LEVELS OF OTHER SERUM ENZYMES; Elevated LFT's TECHNIQUE: Multiple sonographic images of the right upper quadrant are obtained. FINDINGS: EXAM MEASUREMENTS: Liver Length: 20.7 cm Gallbladder Wall: 0.3 cm CBD: 0.4 cm Right Kidney: 11.8 x 5.1 x 6.2 cm Pancreas: wnl Liver: Enlarged, heterogeneous and echogenic. No focal lesion seen. Gallbladder: wnl Evidence for sonographic Kam's sign: No CBD: wnl Right Kidney: wnl IMPRESSION: 1. Hepatomegaly at 20.7 cm with at least moderate hepatic steatosis. Appropriate clinical management is advised. 2. No gallstones or biliary ductal dilatation.
== END | disposition home or self-care (01) ==
LOC: RADUSWWP 07:09
PROVIDERS: ATTEND Family Medicine
DX: K76.0 Fatty (change of) liver, not elsewhere classified (principal); R74.8 Abnormal levels of other serum enzymes; R16.0 Hepatomegaly, not elsewhere classified
CPT/HCPCS: 76705

== ENCOUNTER 2023-07-19 19:34 | Emergency (ER) | payer OTHER ==
[2023-07-19 19:50] LABS: Glucose,Whole Blood 80 mg/dL (70-110)
[2023-07-19 20:01] VITALS: RESP 18; TEMP 98.4
--- NOTE | 2023-07-19 20:34 | ED ---
General Adult HPI - General Chief complaint: Recheck/Abnormal Lab/Rx Stated complaint: Hypoglycemia Time Seen by Provider: 07/19/23 19:43 Source: patient, EMS Mode of arrival: EMS Limitations: no limitations - History of Present Illness Initial comments: Dictation was produced using Rosum dictation software. please excuse any grammatical, word or spelling errors. Chief Complaint: 43-year-old male presents the emergency department for hyperglycemia History of Present Illness: Patient is a 43-year-old type I diabetic. States that today he had a syncopal episode. He is a known diabetic. Patient states that he is trying to get familiar with new diabetes equipment. He states that he must of accidentally gave himself too much insulin Humalog. Started to feel lightheaded when in [employer] he passed out. EMS was called patient was found to be hypoglycemic into the 50s. Given juice and glucose. Patient denies any symptoms at this time. Denies any suicidal or homicidal ideation. The ROS documented in this emergency department record has been reviewed and confirmed by me. Those systems with pertinent positive or negative responses h ave been documented in the HPI. All other systems are other negative and/or noncontributory. - Related Data Previous Rx's Medication Instructions Recorded INSULIN ASPART (NovoLOG) [NovoLOG 0 unit SQ ACHS #1 each 01/31/23 (formulary)] INSULIN ASPART (NovoLOG) [NovoLOG 12 unit SQ AC-TID #1 each 01/31/23 (formulary)] Insulin Detemir (Levemir) [Levemir] 22 unit SQ BID@0700,2100 #1 each 01/31/23 Syringe-Needle,Insulin,0.5 ml 1 syr SQ DIRECTED #120 each 01/31/23 [Insulin Syringe 28G 1/2" 0.5ML] Allergies Allergy/AdvReac Type Severity Reaction Status Date / Time No Known Allergies Allergy Verified 07/19/23 19:46 Review of Systems ROS Statement: Those systems with pertinent positive or pertinent negative responses have been documented in the HPI. ROS Other: All systems not noted in ROS Statement are negative. Past Medical History Past Medical History: Diabetes Mellitus Additional Past Medical History / Comment(s): chicken pox when he was 5 History of Any Multi-Drug Resistant Organisms: None Reported Past Surgical History: No Surgical Hx Reported Past Psychological History: No Psychological Hx Reported Smoking Status: Former smoker General Exam - General Exam Comments Initial Comments: PHYSICAL EXAM: General Impression: Alert and oriented x3, not in acute distress HEENT: Normocephalic atraumatic, extra-ocular movements intact, pupils equal and reactive to light bilaterally, mucous membranes moist. Cardiovascular: Heart regular rate and rhythm Chest: Able to complete full sentences, no retractions, no tachypnea Abdomen: abdomen soft, non-tender, non-distended, no organomegaly Musculoskeletal: Pulses present and equal in all extremities, no peripheral edema Motor: no focal deficits noted Neurological: CN II-XII grossly intact, no focal motor or sensory deficits noted Skin: Intact with no visualized rashes Psych: Normal affect and mood Limitations: no limitations Course Vital Signs 07/19/23 19:39 Temperature 98.4 F Pulse Rate 97 Respiratory 18 Rate Blood Pressure 132/95 O2 Sat by Pulse 100 Oximetry EKG Findings - EKG Comments: EKG Findings:: My EKG interpretation: Ventricular rate 97, sinus rhythm, GA interval 100, cures 109, QTc 421. No GA prolongation, no QTC prolongation, no ST or T-wave changes noted. Overall, this EKG is unremarkable Medical Decision Making - Medical Decision Making Was pt. sent in by a medical professional or institution (, PA, SUBSTANCE ABUSE SPECIALIST, urgent care, hospital, or fdc...) When possible be specific @ -No Did you speak to anyone other than the patient for history (EMS, parent, family, police, friend...)? What history was obtained from this source @ -No Did you review nursing and triage notes (agree or disagree)? Why? @ -I reviewed and agree with nursing and triage notes Were old charts reviewed (outside hosp., previous admission, EMS record, old EKG, old radiological studies, urgent care reports/EKG's, fdc records)? Report findings @ -No old charts were reviewed Differential Diagnosis (chest pain, altered mental status, abdominal pain women, abdominal pain men, vaginal bleeding, musculoskeletal, weakness, fever, dyspnea, syncope, headache, dizziness, GI bleed, back pain, seizure, CVA, palpatations, mental health)? @ -Differential Syncope: Valvular disease, hypertrophic cardiomyopathy, pulmonary embolism, tamponade, tachycardia, bradycardia, NH, hypovolemia, hemorrhage, dissection, anemia, intracranial hemorrhage, seizure, hypoglycemia, carbon monoxide poisoning, this is not meant to be an all-inclusive list. EKG interpreted by me (3pts min.). @ -None done X-rays interpreted by me (1pt min.). @ -None done CT interpreted by me (1pt min.). @ -None done U/S interpreted by me (1pt. min.). @ -None done What testing was considered but not performed or refused? (CT, X-rays, U/S, labs)? Why? @ -None What meds were considered but not given or refused? Why? @ -None Did you discuss the management of the patient with other professionals (professionals i.e. DrJocelynn, PA, SUBSTANCE ABUSE SPECIALIST, lab, RT, psych nurse, social sciences department chair, machine greaser, teacher, fourth officer, employment evaluator/case manager)? Give summary @ -No Was smoking cessation discussed for >3mins.? @ -No Was critical care preformed (if so, how long)? @ -No Were there social determinants of health that impacted care today? How? (Homelessness, low income, unemployed, alcoholism, drug addiction, transportation, low edu. Level, literacy, decrease access to med. care, retirement, rehab)? @ -No Was there de-escalation of care discussed even if they declined (Discuss DNR or withdrawal of care, Hospice)? DNR status @ -No What co-morbidities impacted this encounter? (DM, HTN, Smoking, COPD, CAD, Cancer, CVA, ARF, Chemo, Hep., AIDS, mental health diagnosis, sleep apnea, morbid obesity)? @ -None Was patient admitted / discharged? Hospital course, mention meds given and route, prescriptions, significant lab abnormalities, going to OR and other pertinent info. @ -43-year-old male presents emergency department for syncopal episode. Vital signs stable. Patient likely passed out due to hypoglycemia. Vital signs upon arrival are within acceptable limits. Hypoglycemia is corrected by prehospital providers. Initial blood work is hyperglycemic with a level of 66. Corrected with oral intake. Patient's blood glucose stabilized approximately 2 hours later. Patient well-appearing. Patient stable for discharge. Patient told to monitor his blood sugars further at home. He has had experience with hypoglycemic episodes in the past. Undiagnosed new problem with uncertain prognosis? @ -No Drug Therapy requiring intensive monitoring for toxicity (Heparin, Nitro, Insulin, Cardizem)? @ -No Were any procedures done? @ -No Diagnosis/symptom? Acute, or Chronic, or Acute on Chronic? Uncomplicated (without systemic symptoms) or Complicated (systemic symptoms)? @ -Hypoglycemia Side effects of treatment? @ -No Exacerbation, Progression, or Severe Exacerbation? @ -No Poses a threat to life or bodily function? How? (Chest pain, USA, NH, pneumonia, PE, COPD, DKA, ARF, appy, cholecystitis, CVA, Diverticulitis, Homicidal, Suicida l, threat to staff... and all critical care pts) @ -yes - Lab Data Result diagrams: 07/19/23 20:27 07/19/23 20:27 Lab Results 07/19/23 07/19/23 07/19/23 Range/Units 19:49 20:27 20:27 WBC 8.5 (3.8-10.6) k/uL RBC 4.25 L (4.30-5.90) m/uL Hgb 13.6 (13.0-17.5) gm/dL Hct 38.5 L (39.0-53.0) % MCV 90.7 (80.0-100.0) fL MCH 32.0 (25.0-35.0) pg MCHC 35.3 (31.0-37.0) g/dL RDW 12.4 (11.5-15.5) % Plt Count 180 (150-450) k/uL MPV 7.4 Neutrophils % 74 % Lymphocytes % 18 % Monocytes % 5 % Eosinophils % 2 % Basophils % 0 % Neutrophils # 6.3 (1.3-7.7) k/uL Lymphocytes # 1.5 (1.0-4.8) k/uL Monocytes # 0.4 (0-1.0) k/uL Eosinophils # 0.2 (0-0.7) k/uL Basophils # 0.0 (0-0.2) k/uL Sodium 138 (137-145) mmol/L Potassium 3.5 (3.5-5.1) mmol/L Chloride 105 (98-107) mmol/L Carbon Dioxide 21 L (22-30) mmol/L Anion Gap 12 mmol/L BUN 17 (9-20) mg/dL Creatinine 0.54 L (0.66-1.25) mg/dL Est GFR (CKD-EPI)AfAm >90 (>60 ml/min/1.73 sqM) Est GFR (CKD-EPI)NonAf >90 (>60 ml/min/1.73 sqM) Glucose 66 L (74-99) mg/dL POC Glucose (mg/dL) 80 (70-110) mg/dL POC Glu Varying Exceptionalities Teacher ID Ursula Rodriguez Calcium 9.1 (8.4-10.2) mg/dL 07/19/23 07/19/23 07/19/23 Range/Units 20:36 20:57 21:17 WBC (3.8-10.6) k/uL RBC (4.30-5.90) m/uL Hgb (13.0-17.5) gm/dL Hct (39.0-53.0) % MCV (80.0-100.0) fL MCH (25.0-35.0) pg MCHC (31.0-37.0) g/dL RDW (11.5-15.5) % Plt Count (150-450) k/uL MPV Neutrophils % % Lymphocytes % % Monocytes % % Eosinophils % % Basophils % % Neutrophils # (1.3-7.7) k/uL Lymphocytes # (1.0-4.8) k/uL Monocytes # (0-1.0) k/uL Eosinophils # (0-0.7) k/uL Basophils # (0-0.2) k/uL Sodium (137-145) mmol/L Potassium (3.5-5.1) mmol/L Chloride (98-107) mmol/L Carbon Dioxide (22-30) mmol/L Anion Gap mmol/L BUN (9-20) mg/dL Creatinine (0.66-1.25) mg/dL Est GFR (CKD-EPI)AfAm (>60 ml/min/1.73 sqM) Est GFR (CKD-EPI)NonAf (>60 ml/min/1.73 sqM) Glucose (74-99) mg/dL POC Glucose (mg/dL) 66 L 68 L 80 (70-110) mg/dL POC Glu Varying Exceptionalities Teacher ID Ursula Rodriguez, Ursula Urban Calcium (8.4-10.2) mg/dL 07/19/23 Range/Units 21:46 WBC (3.8-10.6) k/uL RBC (4.30-5.90) m/uL Hgb (13.0-17.5) gm/dL Hct (39.0-53.0) % MCV (80.0-100.0) fL MCH (25.0-35.0) pg MCHC (31.0-37.0) g/dL RDW (11.5-15.5) % Plt Count (150-450) k/uL MPV Neutrophils % % Lymphocytes % % Monocytes % % Eosinophils % % Basophils % % Neutrophils # (1.3-7.7) k/uL Lymphocytes # (1.0-4.8) k/uL Monocytes # (0-1.0) k/uL Eosinophils # (0-0.7) k/uL Basophils # (0-0.2) k/uL Sodium (137-145) mmol/L Potassium (3.5-5.1) mmol/L Chloride (98-107) mmol/L Carbon Dioxide (22-30) mmol/L Anion Gap mmol/L BUN (9-20) mg/dL Creatinine (0.66-1.25) mg/dL Est GFR (CKD-EPI)AfAm (>60 ml/min/1.73 sqM) Est GFR (CKD-EPI)NonAf (>60 ml/min/1.73 sqM) Glucose (74-99) mg/dL POC Glucose (mg/dL) 95 (70-110) mg/dL POC Glu Varying Exceptionalities Teacher ID Ursula Rodriguez Calcium (8.4-10.2) mg/dL Disposition Clinical Impression: Hypoglycemia Disposition: HOME SELF-CARE Condition: Good Instructions (If sedation given, give patient instructions): Hypoglycemia in a Person with Diabetes (ED) Is patient prescribed a controlled substance at d/c from ED?: No Referrals: Jeremy Chang MD [Primary Care Provider] - 1-2 days Time of Disposition: 22:07
[2023-07-19 20:38] LABS: Basophils % (A) 0 %; Eosinophils # (A) 0.2 k/uL (0-0.7); Eosinophils % (A) 2 %; HCT 38.5 % (39.0-53.0); HGB 13.6 gm/dL (13.0-17.5); Lymphocytes # (A) 1.5 k/uL (1.0-4.8); Lymphocytes % (A) 18 %; MCHC 35.3 g/dL (31.0-37.0); MCV 90.7 fL (80.0-100.0); Mean Platelet Volume 7.4; Monocytes # (A) 0.4 k/uL (0-1.0); Monocytes % (A) 5 %; Neutrophils # (A) 6.3 k/uL (1.3-7.7); Neutrophils % (A) 74 %; Platelet Count 180 k/uL (150-450); RBC 4.25 m/uL (4.30-5.90); RDW 12.4 % (11.5-15.5); WBC 8.5 k/uL (3.8-10.6)
[2023-07-19 20:39] LABS: Glucose,Whole Blood 66 mg/dL (70-110)
[2023-07-19 20:50] LABS: African American GFR (CKD) >90 (>60 ml/min/1.73 sqM); Anion Gap 12 mmol/L; Blood Urea Nitrogen 17 mg/dL (9-20); Calcium 9.1 mg/dL (8.4-10.2); Carbon Dioxide 21 mmol/L (22-30); Chloride 105 mmol/L (98-107); Glucose 66 mg/dL (74-99); Non-African American GFR(CKD) >90 (>60 ml/min/1.73 sqM); Potassium 3.5 mmol/L (3.5-5.1); Sodium 138 mmol/L (137-145)
[2023-07-19 20:58] LABS: Glucose,Whole Blood 68 mg/dL (70-110)
[2023-07-19 21:18] LABS: Glucose,Whole Blood 80 mg/dL (70-110)
[2023-07-19 21:48] LABS: Glucose,Whole Blood 95 mg/dL (70-110)
[2023-07-19 22:07] LABS: Glucose,Whole Blood 88 mg/dL (70-110)
[2023-07-19 22:20] VITALS: BP 112/78; PULSE 94
== END 2023-07-19 22:16 | disposition home or self-care (01) ==
LOC: EC 19:34
DX: E10.649 Type 1 diabetes mellitus with hypoglycemia without coma (principal); Z87.891 Personal history of nicotine dependence
CPT/HCPCS: 36415; 80048; 85025; 93005; 99285

== ENCOUNTER 2023-09-23 13:18 | Inpatient (IN) | payer OTHER ==
[2023-09-23] MEDS ORDERED: Magnesium Replacement Protocol 1 EACH MISC MISCELLANE PRN (13:40)
[2023-09-23] MEDS ORDERED: DEXTROSE 50% SYRINGE 50 ML IVP PRN ×2 (13:40)
[2023-09-23] MEDS ORDERED: Potassium Replacement Protocol 1 EACH MISC MISCELLANE PRN (13:40)
[2023-09-23 13:48] LABS: Glucose,Whole Blood 487 mg/dL (70-110)
--- NOTE | 2023-09-23 14:41 | ED ---
General Adult HPI - General Source: patient, RN notes reviewed, old records reviewed Mode of arrival: EMS <Brendan Mcdonough - Last Filed: 09/23/23 15:11> <Mary Beckett - Last Filed: 09/23/23 23:37> - General Chief complaint: Recheck/Abnormal Lab/Rx Stated complaint: Hypoglycemia Time Seen by Provider: 09/23/23 13:25 - History of Present Illness Initial comments: This is a 43-year-old male who presents to the emergency department the past medical history significant for diabetes. Patient states he just had his insulin changed and last couple of days he has been using a new insulin protocol. Patient states at 1:00 last night he started vomiting and has been vomiting ever since. Patient's sugars been elevated and this afternoon he decided to come into the emergency department because he could not stop vomiting and he started to feel dehydrated. Patient states he had DKA once before and he was told to come in early so he does not get quite as sick. Patient denies any fever chills or cough. Patient denies any abdominal pain. Patient Nu[place] chest pain difficulty breathing shortness of breath. Patient does feel little fati gued and continues to be nauseated. (Brendan Mcdonough) - Related Data Home Medications Medication Instructions Recorded Confirmed INSULIN LISPRO (HumaLOG) [humaLOG] 20 units SQ AC-TID 09/23/23 09/23/23 Insulin Detemir (Levemir) [Levemir] 30 unit SQ HS 09/23/23 09/23/23 Allergies Allergy/AdvReac Type Severity Reaction Status Date / Time No Known Allergies Allergy Verified 09/23/23 15:15 Review of Systems ROS Other: All systems not noted in ROS Statement are negative. <Brendan Mcdonough - Last Filed: 09/23/23 15:11> ROS Other: All systems not noted in ROS Statement are negative. <Mary Beckett - Last Filed: 09/23/23 23:37> ROS Statement: Those systems with pertinent positive or pertinent negative responses have been documented in the HPI. Past Medical History Past Medical History: Diabetes Mellitus Additional Past Medical History / Comment(s): chicken pox when he was 5 History of Any Multi-Drug Resistant Organisms: None Reported Past Surgical History: No Surgical Hx Reported Past Psychological History: No Psychological Hx Reported Smoking Status: Former smoker <Brendan Mcdonough - Last Filed: 09/23/23 15:11> General Exam <Brendan Mcdonough - Last Filed: 09/23/23 15:11> - General Exam Comments Initial Comments: GENERAL: Patient is well-developed and well-nourished. Patient is nontoxic and well- hydrated and is in mild distress. ENT: Neck is soft and supple. No significant lymphadenopathy is noted. Oropharynx is clear. Dry mucous membranes. Neck has full range of motion without eliciting any pain. EYES: The sclera were anicteric and conjunctiva were pink and moist. Extraocular movements were intact and pupils were equal round and reactive to light. Eyelids were unremarkable. PULMONARY: Unlabored respirations. Good breath sounds bilaterally. No audible rales rhonchi or wheezing was noted. CARDIOVASCULAR: There is a regular rate and rhythm without any murmurs gallops or rubs. ABDOMEN: Soft and nontender with normal bowel sounds. SKIN: Skin is clear with no lesions or rashes and otherwise unremarkable. NEUROLOGIC: Patient is alert and oriented x3. Cranial nerves II through XII are grossly intact. Motor and sensory are also intact. Normal speech, volume and content. Symmetrical smile. MUSCULOSKELETAL: Normal extremities with adequate strength and full range of motion. No lower extremity swelling or edema. No calf tenderness. LYMPHATICS: No significant lymphadenopathy is noted PSYCHIATRIC: Normal psychiatric evaluation. (Brendan Mcdonough) Course <Mary Beckett Gissell - Last Filed: 09/23/23 23:37> Vital Signs 09/23/23 09/23/23 09/23/23 13:29 14:41 15:41 Temperature 97.9 F Pulse Rate 104 H 110 H 112 H Respiratory 18 32 H 32 H Rate Blood Pressure 142/84 143/88 150/102 O2 Sat by Pulse 100 100 100 Oximetry 09/23/23 09/23/23 09/23/23 16:41 17:05 17:15 Temperature Pulse Rate 107 H 101 H 104 H Respiratory 32 H 24 Rate Blood Pressure 155/93 O2 Sat by Pulse 100 Oximetry 09/23/23 09/23/23 09/23/23 18:00 19:52 19:55 Temperature Pulse Rate 102 H 107 H Respiratory 24 25 H 16 Rate Blood Pressure 125/75 155/65 O2 Sat by Pulse 100 95 Oximetry - Reevaluation(s) Reevaluation #1: 09/23/23 16:[address] Ramirez and who is agreeable to the admission to the ICU (Mary Beckett) Medical Decision Making - Lab Data Result diagrams: 09/23/23 14:04 <Brendan Mcdonough - Last Filed: 09/23/23 15:11> - Lab Data Result diagrams: 09/23/23 14:04 09/23/23 19:15 <Mary Beckett - Last Filed: 09/23/23 23:37> - Medical Decision Making EKG is interpreted by myself but EKG shows a sinus rhythm at 94 bpm parables 127 QRS 106 QT interval 345 QTc is 397 per patient EKG shows no ST segment ovation or depression. Was pt. sent in by a medical professional or institution (, PA, CONDUCTOR FREIGHT, urgent care, hospital, or skilled nursing...) When possible be specific @ -[No] Did you speak to anyone other than the patient for history (EMS, parent, family, police, friend...)? What history was obtained from this source @ -[No] Did you review nursing and triage notes (agree or disagree)? Why? @ -[I reviewed and agree with nursing and triage notes] Were old charts reviewed (outside hosp., previous admission, EMS record, old EKG, old radiological studies, urgent care reports/EKG's, skilled nursing records)? Report findings @ -[No old charts were reviewed] Differential Diagnosis (chest pain, altered mental status, abdominal pain women, abdominal pain men, vaginal bleeding, weakness, fever, dyspnea, syncope, headache, dizziness, GI bleed, back pain, seizure, CVA, palpatations, mental health, musculoskeletal)? @ -Diabetic ketoacidosis, gastroenteritis, acute gastritis, viral syndrome, this is not an all-inclusive list EKG interpreted by me (3pts min.). @ -[As above] X-rays interpreted by me (1pt min.). @ -[None done] CT interpreted by me (1pt min.). @ -[None done] U/S interpreted by me (1pt. min.). @ -[None done] What testing was considered but not performed or refused? (CT, X-rays, U/S, labs)? Why? @ -[None] What meds were considered but not given or refused? Why? @ -[None] Did you discuss the management of the patient with other professionals (professionals i.e. , PA, CONDUCTOR FREIGHT, lab, RT, psych nurse, social media strategist, vp software engineering, teacher, commanding officer homicide squad, piano case and bench assembler)? Give summary @ -[No] Was smoking cessation discussed for >3mins.? @ -[No] Was critical care preformed (if so, how long)? @ -[No] Were there social determinants of health that impacted care today? How? (Homelessness, low income, unemployed, alcoholism, drug addiction, tra nsportation, low edu. Level, literacy, decrease access to med. care, custodial, rehab)? @ -[No] Was there de-escalation of care discussed even if they declined (Discuss DNR or withdrawal of care, Hospice)? DNR status @ -[No] What co-morbidities impacted this encounter? (DM, HTN, Smoking, COPD, CAD, Cance r, CVA, ARF, Chemo, Hep., AIDS, mental health diagnosis, sleep apnea, morbid obesity)? @ -[None] Was patient admitted / discharged? Hospital course, mention meds given and route, prescriptions, significant lab abnormalities, going to OR and other pertinent info. @ -I signed the patient out to Dr. Morales at 3:00. (Brendan Mcdonough) Was patient admitted / discharged? Hospital course, mention meds given and route, prescriptions, significant lab abnormalities, going to OR and other pertinent info. @ -Patient signed out to me from Dr. Mcdonough. Laboratory studies to result and patient is in DKA. pH is less than 7 therefore two amps of bicarb are administered. Patient has hyperkalemia and therefore albuterol and Lokelma ordered. Patient is initiated on the insulin drip. Spoke with Dr. Hills who was agreeable to admit the patient to the ICU. Also spoke with Dr. Gracia who presents to the emergency department and sees the patient Undiagnosed new problem with uncertain prognosis? @ -No Drug Therapy requiring intensive monitoring for toxicity (Heparin, Nitro, Insulin, Cardizem)? @ -Insulin Were any procedures done? @ -No Diagnosis/symptom? @ -Acute nausea vomiting, acute abdominal pain, acute dka Acute, or Chronic, or Acute on Chronic? @ -Acute Uncomplicated (without systemic symptoms) or Complicated (systemic symptoms)? @ -Complicated Side effects of treatment? @ -No Exacerbation, Progression, or Severe Exacerbation? @ -No Poses a threat to life or bodily function? How? (Chest pain, USA, [place], pneumonia, PE, COPD, DKA, ARF, appy, cholecystitis, CVA, Diverticulitis, Homicidal, Suicidal, threat to staff... and all critical care pts) @ -Yes as patient is in DKA. 35 minutes of critical care time management of DKA with insulin drip (Mary Beckett) - Lab Data Lab Results 09/23/23 09/23/23 09/23/23 Range/Units 13:39 14:04 14:04 WBC 13.2 H (3.8-10.6) k/uL RBC 5.34 (4.30-5.90) m/uL Hgb 16.9 D (13.0-17.5) gm/dL Hct 55.0 H (39.0-53.0) % MCV 102.9 H D (80.0-100.0) fL MCH 31.7 (25.0-35.0) pg MCHC 30.8 L (31.0-37.0) g/dL RDW 11.9 (11.5-15.5) % Plt Count 299 (150-450) k/uL MPV 7.8 Neutrophils % 87 % Lymphocytes % 9 % Monocytes % 3 % Eosinophils % 0 % Basophils % 0 % Neutrophils # 11.4 H (1.3-7.7) k/uL Lymphocytes # 1.2 (1.0-4.8) k/uL Monocytes # 0.5 (0-1.0) k/uL Eosinophils # 0.0 (0-0.7) k/uL Basophils # 0.0 (0-0.2) k/uL Hypochromasia Marked Macrocytosis Slight VBG pH (7.31-7.41) VBG pCO2 (37-51) mmHg VBG HCO3 (24-28) mmol/L Sodium 135 L (137-145) mmol/L Potassium 7.3 H* (3.5-5.1) mmol/L Chloride 100 (98-107) mmol/L Carbon Dioxide <5 L* (22-30) mmol/L Anion Gap mmol/L BUN 19 (9-20) mg/dL Creatinine 1.13 (0.66-1.25) mg/dL Est GFR (CKD-EPI)AfAm >90 (>60 ml/min/1.73 sqM) Est GFR (CKD-EPI)NonAf 80 (>60 ml/min/1.73 sqM) Glucose 594 H* (74-99) mg/dL POC Glucose (mg/dL) 487 H (70-110) mg/dL POC Glu Professor Computer Science ID Courtney Cedillo Acetone, Qual Positive (Negative) 09/23/23 09/23/23 Range/Units 15:23 15:32 WBC (3.8-10.6) k/uL RBC (4.30-5.90) m/uL Hgb (13.0-17.5) gm/dL Hct (39.0-53.0) % MCV (80.0-100.0) fL MCH (25.0-35.0) pg MCHC (31.0-37.0) g/dL RDW (11.5-15.5) % Plt Count (150-450) k/uL MPV Neutrophils % % Lymphocytes % % Monocytes % % Eosinophils % % Basophils % % Neutrophils # (1.3-7.7) k/uL Lymphocytes # (1.0-4.8) k/uL Monocytes # (0-1.0) k/uL Eosinophils # (0-0.7) k/uL Basophils # (0-0.2) k/uL Hypochromasia Macrocytosis VBG pH 6.96 L* (7.31-7.41) VBG pCO2 20 L (37-51) mmHg VBG HCO3 5 L* (24-28) mmol/L Sodium (137-145) mmol/L Potassium (3.5-5.1) mmol/L Chloride (98-107) mmol/L Carbon Dioxide (22-30) mmol/L Anion Gap mmol/L BUN (9-20) mg/dL Creatinine (0.66-1.25) mg/dL Est GFR (CKD-EPI)AfAm (>60 ml/min/1.73 sqM) Est GFR (CKD-EPI)NonAf (>60 ml/min/1.73 sqM) Glucose (74-99) mg/dL POC Glucose (mg/dL) 509 H (70-110) mg/dL POC Glu Professor Computer Science ID Mary Nagel Acetone, Qual (Negative) Disposition <Brendan Mcdonough - Last Filed: 09/23/23 15:11> Is patient prescribed a controlled substance at d/c from ED?: No Time of Disposition: 16:22 Decision to Admit Reason: Admit from EC Decision Date: 09/23/23 Decision Time: 16:22 <Mary Beckett - Last Filed: 09/23/23 23:37> Clinical Impression: Diabetic ketoacidosis Disposition: ADMITTED IP TO THIS HOSP Condition: Stable
[2023-09-23 14:49] LABS: Basophils % (A) 0 %; Eosinophils % (A) 0 %; Hypochromasia Marked; Lymphocytes # (A) 1.2 k/uL (1.0-4.8); Lymphocytes % (A) 9 %; MCH 31.7 pg (25.0-35.0); MCHC 30.8 g/dL (31.0-37.0); Macrocytosis Slight; Mean Platelet Volume 7.8; Monocytes # (A) 0.5 k/uL (0-1.0); Monocytes % (A) 3 %; Neutrophils # (A) 11.4 k/uL (1.3-7.7); Neutrophils % (A) 87 %; Platelet Count 299 k/uL (150-450); RBC 5.34 m/uL (4.30-5.90); RDW 11.9 % (11.5-15.5); WBC 13.2 k/uL (3.8-10.6)
[2023-09-23 14:51] LABS: HGB 16.9 gm/dL (13.0-17.5); MCV 102.9 fL (80.0-100.0)
[2023-09-23] MEDS: SODIUM CHLORIDE 0.9% 2,000 ML IV ONE (15:00)
[2023-09-23 15:06] LABS: African American GFR (CKD) >90 (>60 ml/min/1.73 sqM); Blood Urea Nitrogen 19 mg/dL (9-20); Chloride 100 mmol/L (98-107); Non-African American GFR(CKD) 80 (>60 ml/min/1.73 sqM); Sodium 135 mmol/L (137-145)
[2023-09-23 15:34] LABS: VBG PH 6.96 (7.31-7.41)
[2023-09-23 15:36] LABS: Carbon Dioxide <5 mmol/L (22-30); Glucose 594 mg/dL (74-99); Potassium 7.3 mmol/L (3.5-5.1)
[2023-09-23] MEDS: INSULIN REGULAR BOLUS (FROM DRIP BAG) IV ONE (15:40)
[2023-09-23] MEDS: INSULIN REGULAR 100 UNIT in SODIUM CHLORIDE 0.9% 100 ML IV SCH (15:41)
[2023-09-23] MEDS: SODIUM CHLORIDE 0.9% 1,000 ML IV SCH (15:42)
[2023-09-23] MEDS: ONDANSETRON 4 MG/2 ML VIAL IVP STA (15:44)
[2023-09-23 15:46] LABS: Glucose,Whole Blood 509 mg/dL (70-110)
[2023-09-23] MEDS ORDERED: NALOXONE 0.4 MG/ML 1 ML VIAL IV PRN (16:22)
[2023-09-23 16:48] LABS: Glucose,Whole Blood 389 mg/dL (70-110)
[2023-09-23] MEDS: ALBUTEROL NEBULIZED 2.5 MG/3 ML INHALATION STA (17:05)
--- NOTE | 2023-09-23 17:07 | P.HPIM ---
History of Present Illness H&P Date: 09/23/23 43-year-old male with PMH of diabetes mellitus presents the ED for intractable nausea and vomiting since 1 AM. Recently discontinued his insulin pump in January and started SQ insulin. He reports compliance with his insulin. He has had difficulties managing his blood sugars since. He follows Dr. Burr as his [facility]. He denies any headache, lower extremity edema, chest pain, shortness of breath, palpitations, changes in urination or bowel habits. He denies any dizziness, numbness/weakness/tingling of the extremities. In the ED, he underwent extensive evaluation. BP 142/84, RR 18, HR 104, T97.9F, 100% on RA. CBC showed WBC count 13.2, hematocrit 55, MCV 102.9. VBG showed pH 6.96 and pCO2 of 20. BMP showed sodium 135, potassium 7.3, bicarb less than 5, glucose 594. Acetone positive. EKG showed sinus rhythm. Patient is admitted to ICU for treatment of DKA. General: non toxic, mild distress, appears at stated age, tremors Derm: warm, dry Head: atraumatic, normocephalic, symmetric Eyes: EOMI, no lid lag, anicteric sclera Mouth: no lip lesion, mucus membranes moist Cardiovascular: S1S2 tachy, no murmur Lungs: CTA bilateral, no rhonchi, no rales , no accessory muscle use Abdominal: soft, nontender to palpation, no guarding, no appreciable organomegaly Ext: no gross muscle atrophy, no edema, no contractures Neuro: no focal neuro deficits Psych: Alert, oriented, appropriate affect Based on my assessment of this patient, this patient meets a high complexity lev el of care. Patient has an acute diagnosis of DKA that poses a threat to life or bodily function. Diabetic ketoacidosis: Status post 2 amps of bicarb. Start NS at 250 cc/hr. Start insulin drip. Telemetry monitoring. Hourly accuchecks. BMP Q4H. Discussed with Dr. Hills, admit to ICU. Hyperkalemia: Status post albuterol neb, 2 amps of bicarb, Lokelma in the ED. EKG with no T wave changes. Expected to improve with improvement in acidosis. SIRS: Likely related to above. No signs of active infection. Monitor fever profile. CODE STATUS: FULL CODE DVT Prophylaxis: Lovenox SQ GI Prophylaxis: Protonix IV Designated medical POA if patient is not able to make medical decisions for themselves: Mother, SO I have reviewed the following contract consultant notes: ED note. I have reviewed the results of the following tests: As above. I have ordered the following tests: As above. I have discussed the care of this patient with the following independent historian: RN, Mother, SO I have independently interpreted the following test below: EKG I have discussed the management of this patient with the following physician: Dr. Hills Past Medical History Past Medical History: Diabetes Mellitus Additional Past Medical History / Comment(s): chicken pox when he was 5 History of Any Multi-Drug Resistant Organisms: None Reported Past Surgical History: No Surgical Hx Reported Past Psychological History: No Psychological Hx Reported Smoking Status: Former smoker Medications and Allergies Home Medications Medication Instructions Recorded Confirmed Type INSULIN LISPRO (HumaLOG) [humaLOG] 20 units SQ AC-TID 09/23/23 09/23/23 History Insulin Detemir (Levemir) [Levemir] 30 unit SQ HS 09/23/23 09/23/23 History Allergies Allergy/AdvReac Type Severity Reaction Status Date / Time No Known Allergies Allergy Verified 09/23/23 15:15 Physical Exam Vitals: Vital Signs Temp Pulse Resp BP Pulse Ox 09/23/23 13:29 97.9 F 104 H 18 142/84 100 Intake and Output 09/23/23 09/23/23 09/23/23 06:59 14:59 22:59 Other: Weight 90.718 kg Results CBC & Chem 7: 09/23/23 14:04 09/23/23 14:04 Labs: Abnormal Lab Results - Last 24 Hours (Table) 09/23/23 09/23/23 09/23/23 Range/Units 13:39 14:04 14:04 WBC 13.2 H (3.8-10.6) k/uL Hct 55.0 H (39.0-53.0) % MCV 102.9 H D (80.0-100.0) fL MCHC 30.8 L (31.0-37.0) g/dL Neutrophils # 11.4 H (1.3-7.7) k/uL VBG pH (7.31-7.41) VBG pCO2 (37-51) mmHg VBG HCO3 (24-28) mmol/L Sodium 135 L (137-145) mmol/L Potassium 7.3 H* (3.5-5.1) mmol/L Carbon Dioxide <5 L* (22-30) mmol/L Glucose 594 H* (74-99) mg/dL POC Glucose (mg/dL) 487 H (70-110) mg/dL 09/23/23 09/23/23 09/23/23 Range/Units 15:23 15:32 16:47 WBC (3.8-10.6) k/uL Hct (39.0-53.0) % MCV (80.0-100.0) fL MCHC (31.0-37.0) g/dL Neutrophils # (1.3-7.7) k/uL VBG pH 6.96 L* (7.31-7.41) VBG pCO2 20 L (37-51) mmHg VBG HCO3 5 L* (24-28) mmol/L Sodium (137-145) mmol/L Potassium (3.5-5.1) mmol/L Carbon Dioxide (22-30) mmol/L Glucose (74-99) mg/dL POC Glucose (mg/dL) 509 H 389 H (70-110) mg/dL
[2023-09-23] MEDS: SODIUM BICARB 8.4% 50 ML SYR (1 MEQ/ML) IV STA ×2 (17:08)
[2023-09-23] MEDS: SODIUM ZIRCONIUM CYCLOSILICATE 10 GM PACKET PO ONE (17:19)
[2023-09-23 17:36] LABS: Glucose,Whole Blood 383 mg/dL (70-110)
[2023-09-23 18:00] LABS: Appearance,Urine Clear (Clear); Bilirubin,Urine Negative (Negative); Blood,Urine Trace (Negative); Color,Urine Colorless; Glucose,Urine (UA) 4+ (Negative); Hyaline Casts,Urine 1 /lpf (0-2); Leukocyte Esterase,Urine Negative (Negative); Mucus,Urine Rare /hpf; Nitrite,Urine Negative (Negative); Protein,Urine Trace (Negative); RBC,Urine <1 /hpf (0-5); Specific Gravity,Urine 1.022 (1.001-1.035); Squamous Epithelial Cell,Urine <1 /hpf (0-4); Urobilinogen,Urine <2.0 mg/dL (<2.0); WBC,Urine <1 /hpf (0-5)
[2023-09-23 18:13] LABS: Ketones,Urine 4+ (Negative)
[2023-09-23 18:53] LABS: Glucose,Whole Blood 300 mg/dL (70-110)
[2023-09-23 19:43] LABS: Glucose,Whole Blood 265 mg/dL (70-110)
[2023-09-23 19:52] LABS: Glucose,Whole Blood 228 mg/dL (70-110)
[2023-09-23 19:58] LABS: ALT 105 U/L (4-49); AST 78 U/L (17-59); African American GFR (CKD) >90 (>60 ml/min/1.73 sqM); Amylase 54 U/L (30-110); Blood Urea Nitrogen 17 mg/dL (9-20); Chloride 108 mmol/L (98-107); Creatine Kinase 55 U/L (55-170); Glucose 277 mg/dL (74-99); Lipase 134 U/L (23-300); Magnesium 2.1 mg/dL (1.6-2.3); Non-African American GFR(CKD) >90 (>60 ml/min/1.73 sqM); Phosphorus 4.2 mg/dL (2.5-4.5); Potassium 4.6 mmol/L (3.5-5.1); Sodium 136 mmol/L (137-145)
[2023-09-23 20:01] LABS: Carbon Dioxide <5 mmol/L (22-30)
[2023-09-23] MEDS: ONDANSETRON 4 MG/2 ML VIAL IVP PRN (20:34)
[2023-09-23 20:53] LABS: Glucose,Whole Blood 176 mg/dL (70-110)
[2023-09-23] MEDS: D5-0.45% NACL WITH KCL 20MEQ/L 1,000 ML IV SCH (20:59)
[2023-09-23 21:51] LABS: Glucose,Whole Blood 175 mg/dL (70-110)
[2023-09-23 22:50] LABS: Glucose,Whole Blood 131 mg/dL (70-110)
[2023-09-24 00:03] LABS: Glucose,Whole Blood 122 mg/dL (70-110)
[2023-09-24 00:51] LABS: Glucose,Whole Blood 125 mg/dL (70-110)
[2023-09-24 01:33] LABS: African American GFR (CKD) >90 (>60 ml/min/1.73 sqM); Anion Gap 11 mmol/L; Blood Urea Nitrogen 15 mg/dL (9-20); Calcium 8.7 mg/dL (8.4-10.2); Carbon Dioxide 13 mmol/L (22-30); Chloride 111 mmol/L (98-107); Glucose 138 mg/dL (74-99); Non-African American GFR(CKD) >90 (>60 ml/min/1.73 sqM); Potassium 4.3 mmol/L (3.5-5.1); Sodium 135 mmol/L (137-145)
[2023-09-24 02:12] LABS: Glucose,Whole Blood 162 mg/dL (70-110)
[2023-09-24 03:01] LABS: Glucose,Whole Blood 163 mg/dL (70-110)
[2023-09-24 04:19] LABS: Glucose,Whole Blood 194 mg/dL (70-110)
[2023-09-24 05:13] LABS: Glucose,Whole Blood 211 mg/dL (70-110)
[2023-09-24 05:40] LABS: African American GFR (CKD) >90 (>60 ml/min/1.73 sqM); Anion Gap 10 mmol/L; Blood Urea Nitrogen 14 mg/dL (9-20); Calcium 8.4 mg/dL (8.4-10.2); Carbon Dioxide 14 mmol/L (22-30); Chloride 111 mmol/L (98-107); Glucose 190 mg/dL (74-99); Non-African American GFR(CKD) >90 (>60 ml/min/1.73 sqM); Potassium 4.3 mmol/L (3.5-5.1); Sodium 135 mmol/L (137-145)
[2023-09-24 06:05] LABS: Basophils % (A) 0 %; Eosinophils % (A) 0 %; HCT 41.6 % (39.0-53.0); Lymphocytes # (A) 2.3 k/uL (1.0-4.8); Lymphocytes % (A) 22 %; MCH 31.5 pg (25.0-35.0); MCHC 33.2 g/dL (31.0-37.0); Monocytes # (A) 0.7 k/uL (0-1.0); Monocytes % (A) 7 %; Neutrophils # (A) 6.7 k/uL (1.3-7.7); Neutrophils % (A) 67 %; Platelet Count 234 k/uL (150-450); RBC 4.37 m/uL (4.30-5.90); RDW 12.4 % (11.5-15.5); WBC 10.1 k/uL (3.8-10.6)
[2023-09-24 06:12] LABS: Glucose,Whole Blood 259 mg/dL (70-110)
[2023-09-24 06:17] LABS: HGB 13.8 gm/dL (13.0-17.5); MCV 95.1 fL (80.0-100.0)
[2023-09-24 07:04] LABS: Glucose,Whole Blood 237 mg/dL (70-110)
[2023-09-24] MEDS: ENOXAPARIN 40 MG/0.4 ML SYRINGE SQ SCH (08:28)
[2023-09-24] MEDS: PANTOPRAZOLE 40 MG/10 ML VIAL IVP SCH (08:28)
[2023-09-24 08:34] LABS: Glucose,Whole Blood 215 mg/dL (70-110)
--- NOTE | 2023-09-24 09:33 | P.CNPUL ---
History of Present Illness Consult date: 09/23/23 Chief complaint: DKA History of present illness: This patient was seen in the emergency department on 09/23/2023. The patient came into the hospital because of hyperglycemia. He was also having frequent episodes of emesis and I was unable to keep any food or oral intake. Note that the patient is diabetic and he has type 1 diabetes mellitus. In the past, used to utilize insulin pump and the pump failed and subsequently he was switched to Levemir insulin. Recently, the patient is being seen by an roll threader operator and the patient is currently on Levemir insulin 30 units at nighttime and he takes 20 units of NovoLog with meals plus a sliding scale coverage. Based on the ongoing symptoms of nausea and emesis, the patient missed his Levemir insulin dose. Subsequently, his condition got worse. He was unable to keep up with his oral intake. He was becoming more dehydrated and confused and lethargic and for that reason he came into the emergency department. Immediately, he was diagnosed having DKA with a serum bicarb of less than 5, sodium level of 136, normal renal functions, positive ketones in his urine and normal amylase and lipase, AST of 78 with an ALT of 105. In the emergency, the patient was given a total of 2.5 L of IV fluids and following that he was maintained on normal citrate of 200 cc an hour. He was started on insulin drip initially was given 9 units of push and initial insulin drip started at 9 units an hour. Despite his severe metabolic acidosis, the patient was still awake and alert and communicating. He was feeling very weak and lethargic however. Family was at the bedside. No chest pain. No cough or sputum production. No focal neurological deficits. No history of any heart disease. He does have history of peripheral neuropathy related to his diabetes mellitus. The patient will be admitted to the intensive care unit. His last admission for DKA was in January 2023. He states that his hemoglobin A1c is running at around 10. Review of Systems Constitutional: Reports fatigue Eyes: denies as per HPI, denies blurred vision, denies bulging eye, denies decreased vision, denies diplopia, denies discharge, denies dry eye, denies irritation, denies itching, denies pain, denies photophobia, denies loss of peripheral vision, denies loss of vision, denies tunnel vision/blind spots Ears: deny: decreased hearing, ear discharge, earache, tinnitus Ears, nose, mouth and throat: Reports as per HPI Breasts: absent: as per HPI, gynecomastia Cardiovascular: Reports as per HPI Respiratory: Reports as per HPI Gastrointestinal: Reports nausea, Reports vomiting Genitourinary: Reports as per HPI Musculoskeletal: Reports as per HPI Musculoskeletal: absent: ankle pain, ankle stiffness, ankle swelling Integumentary: Reports as per HPI Neurological: Reports as per HPI Psychiatric: Reports as per HPI Endocrine: Reports high blood sugars Hematologic/Lymphatic: Reports as per HPI Allergic/Immunologic: Reports as per HPI Past Medical History Past Medical History: Diabetes Mellitus Additional Past Medical History / Comment(s): chicken pox when he was 5 History of Any Multi-Drug Resistant Organisms: None Reported Past Surgical History: No Surgical Hx Reported Past Psychological History: No Psychological Hx Reported Smoking Status: Former smoker Past Alcohol Use History: None Reported Past Drug Use History: None Reported Additional Drug Use History / Comment(s): Marijuana in the past Medications and Allergies Home Medications Medication Instructions Recorded Confirmed Type INSULIN LISPRO (HumaLOG) [humaLOG] 20 units SQ AC-TID 09/23/23 09/23/23 History Insulin Detemir (Levemir) [Levemir] 30 unit SQ HS 09/23/23 09/23/23 History Allergies Allergy/AdvReac Type Severity Reaction Status Date / Time No Known Allergies Allergy Verified 09/23/23 15:15 Physical Exam Vitals: Vital Signs Temp Pulse Pulse Resp BP Pulse Ox 09/24/23 07:00 75 26 H 108/54 98 09/24/23 06:50 78 27 H 108/54 98 09/24/23 06:40 78 15 108/54 97 09/24/23 06:30 82 13 108/54 98 09/24/23 06:20 82 14 108/54 97 09/24/23 06:10 76 19 108/54 97 09/24/23 06:00 86 21 99/53 97 09/24/23 05:50 87 16 99/53 97 09/24/23 05:40 90 33 H 99/53 96 09/24/23 05:30 79 26 H 99/53 97 09/24/23 05:20 75 14 99/53 97 09/24/23 05:10 79 19 99/53 97 09/24/23 05:00 77 15 110/67 97 09/24/23 04:50 77 13 110/67 97 09/24/23 04:40 77 17 110/67 99 09/24/23 04:30 74 13 110/67 99 09/24/23 04:20 86 18 110/67 98 09/24/23 04:10 70 15 110/67 98 09/24/23 04:00 97.5 F L 68 15 110/57 98 09/24/23 03:50 76 15 110/57 99 09/24/23 03:40 78 14 110/57 98 09/24/23 03:30 73 15 110/57 97 09/24/23 03:20 76 14 110/57 97 09/24/23 03:10 79 15 110/57 97 09/24/23 03:00 77 14 116/59 97 09/24/23 02:50 80 15 116/59 97 09/24/23 02:40 81 16 116/59 97 09/24/23 02:30 82 15 116/59 96 09/24/23 02:20 83 15 116/59 96 09/24/23 02:10 81 14 116/59 97 09/24/23 02:00 88 17 102/53 97 09/24/23 01:50 87 25 H 102/53 99 09/24/23 01:40 80 15 102/53 98 09/24/23 01:30 89 15 102/53 97 09/24/23 01:20 87 16 102/53 96 09/24/23 01:10 90 16 102/53 97 09/24/23 01:03 92 17 102/53 96 09/24/23 01:00 93 18 120/69 97 09/24/23 00:50 89 17 120/69 97 09/24/23 00:40 92 17 120/69 97 09/24/23 00:30 92 15 120/69 98 09/24/23 00:20 84 17 120/69 96 09/24/23 00:10 80 15 120/69 97 09/24/23 00:00 99.5 F 86 89 17 122/60 98 09/23/23 23:50 87 51 H 122/60 97 09/23/23 23:40 89 22 122/60 97 09/23/23 23:30 99 14 122/60 98 09/23/23 23:20 94 29 H 144/73 97 09/23/23 23:10 92 17 144/73 97 09/23/23 23:00 107 H 36 H 144/73 97 09/23/23 22:50 103 H 11 L 144/73 97 09/23/23 22:40 97 17 144/73 96 09/23/23 22:30 98 16 144/73 96 09/23/23 22:20 101 H 21 144/73 97 09/23/23 22:10 102 H 25 H 144/73 98 09/23/23 22:00 105 H 7 L 144/73 98 09/23/23 21:50 111 H 10 L 144/73 97 09/23/23 21:40 97 16 144/73 97 09/23/23 21:30 97 17 144/73 97 09/23/23 21:20 100 17 144/73 96 09/23/23 21:10 109 H 12 144/73 98 09/23/23 21:00 111 H 14 144/73 99 09/23/23 20:50 103 H 13 144/73 97 09/23/23 20:40 111 H 11 L 144/73 99 09/23/23 20:30 108 H 16 144/73 99 09/23/23 20:20 104 H 15 144/73 99 09/23/23 20:10 104 H 15 144/73 98 09/23/23 20:00 98.0 F 105 H 120 H 17 144/73 99 09/23/23 19:55 107 H 16 155/65 95 09/23/23 19:52 25 H 09/23/23 18:00 102 H 24 125/75 100 09/23/23 17:15 104 H 09/23/23 17:05 101 H 24 09/23/23 16:41 107 H 32 H 155/93 100 09/23/23 15:41 112 H 32 H 150/102 100 09/23/23 14:41 110 H 32 H 143/88 100 09/23/23 13:29 97.9 F 104 H 18 142/84 100 Intake and Output 09/23/23 09/24/23 09/24/23 22:59 06:59 14:59 Intake Total 850.204 5670.075 150 Output Total 1300 900 Balance -684.485 314.075 150 Intake: Intake, IV Titration 911.394 0734.075 150 Amount D5-0.45% NaCl with KCl 150 1200 150 20Meq/l 1,000 ml @ 150 mls/hr IV .Q6H40M [facility] Rx# :[id number] Insulin Regular 100 unit 65.515 14.075 In Sodium Chloride 0.9% 100 ml @ 0.1 UNITS/KG/HR 9.163 mls/hr IV .Q11H2M [facility] Rx#:[id number] Sodium Chloride 0.9% 1, 400 000 ml @ 250 mls/hr IV . Q4H [facility] Rx#:[id number] Output: Urine 1300 900 Other: Voiding Method Urinal Urinal Weight 90.718 kg 88.2 kg General appearance the patient is lethargic and weak. He is alert and arousable. He is on room air oxygen. The patient appeared well nourished and normally developed. Vital signs as documented. Head exam is unremarkable. The mucous membranes are extensively dry and the patient seems to be quite dehy drated. No scleral icterus or corneal arcus noted. Neck is without jugular venous distension, thyromegaly, or carotid bruits. Carotid upstrokes are brisk bilaterally. Lungs are clear to auscultation and percussion. Cardiac exam reveals the PMI to be normally sized and situated. Rhythm is regular. First and second heart sounds normal. No murmurs, rubs or gallops. Abdominal exam reveals normal bowel sounds, no masses, no organomegaly and no aortic enlargement. Extremities are nonedematous and both femoral and pedal pulses are normal. Examination of the skin revealed no evidence of significant rashes, suspicious appearing nevi or other concerning lesions. Neurologically, the patient is awake and alert and the patient does not have any focal neurological deficit. Cranial nerves are essentially intact. Results - Laboratory Findings CBC and BMP: 09/24/23 04:22 09/24/23 04:22 Abnormal lab findings: Abnormal Labs 09/23/23 09/23/23 09/23/23 13:39 14:04 14:04 WBC 13.2 H Hct 55.0 H MCV 102.9 H D MCHC 30.8 L Neutrophils # 11.4 H VBG pH VBG pCO2 VBG HCO3 Sodium 135 L Potassium 7.3 H* Chloride Carbon Dioxide <5 L* Creatinine Glucose 594 H* POC Glucose (mg/dL) 487 H AST ALT Urine Protein Urine Glucose (UA) Urine Ketones Urine Blood Urine Mucus 09/23/23 09/23/23 09/23/23 15:23 15:32 16:47 WBC Hct MCV MCHC Neutrophils # VBG pH 6.96 L* VBG pCO2 20 L VBG HCO3 5 L* Sodium Potassium Chloride Carbon Dioxide Creatinine Glucose POC Glucose (mg/dL) 509 H 389 H AST ALT Urine Protein Urine Glucose (UA) Urine Ketones Urine Blood Urine Mucus 09/23/23 09/23/23 09/23/23 17:00 17:34 18:51 WBC Hct MCV MCHC Neutrophils # VBG pH VBG pCO2 VBG HCO3 Sodium Potassium Chloride Carbon Dioxide Creatinine Glucose POC Glucose (mg/dL) 383 H 300 H AST ALT Urine Protein Trace H Urine Glucose (UA) 4+ H Urine Ketones 4+ H Urine Blood Trace H Urine Mucus Rare H 09/23/23 09/23/23 09/23/23 19:15 19:31 19:51 WBC Hct MCV MCHC Neutrophils # VBG pH VBG pCO2 VBG HCO3 Sodium 136 L Potassium Chloride 108 H Carbon Dioxide <5 L* Creatinine Glucose 277 H POC Glucose (mg/dL) 265 H 228 H AST 78 H ALT 105 H Urine Protein Urine Glucose (UA) Urine Ketones Urine Blood Urine Mucus 09/23/23 09/23/23 09/23/23 20:52 21:49 22:48 WBC Hct MCV MCHC Neutrophils # VBG pH VBG pCO2 VBG HCO3 Sodium Potassium Chloride Carbon Dioxide Creatinine Glucose POC Glucose (mg/dL) 176 H 175 H 131 H AST ALT Urine Protein Urine Glucose (UA) Urine Ketones Urine Blood Urine Mucus 09/24/23 09/24/23 09/24/23 00:02 00:50 00:59 WBC Hct MCV MCHC Neutrophils # VBG pH VBG pCO2 VBG HCO3 Sodium 135 L Potassium Chloride 111 H Carbon Dioxide 13 L Creatinine 0.63 L Glucose 138 H POC Glucose (mg/dL) 122 H 125 H AST ALT Urine Protein Urine Glucose (UA) Urine Ketones Urine Blood Urine Mucus 09/24/23 09/24/23 09/24/23 02:10 03:00 04:17 WBC Hct MCV MCHC Neutrophils # VBG pH VBG pCO2 VBG HCO3 Sodium Potassium Chloride Carbon Dioxide Creatinine Glucose POC Glucose (mg/dL) 162 H 163 H 194 H AST ALT Urine Protein Urine Glucose (UA) Urine Ketones Urine Blood Urine Mucus 09/24/23 09/24/23 09/24/23 04:22 05:11 06:11 WBC Hct MCV MCHC Neutrophils # VBG pH VBG pCO2 VBG HCO3 Sodium 135 L Potassium Chloride 111 H Carbon Dioxide 14 L Creatinine 0.64 L Glucose 190 H POC Glucose (mg/dL) 211 H 259 H AST ALT Urine Protein Urine Glucose (UA) Urine Ketones Urine Blood Urine Mucus 09/24/23 09/24/23 07:03 08:32 WBC Hct MCV MCHC Neutrophils # VBG pH VBG pCO2 VBG HCO3 Sodium Potassium Chloride Carbon Dioxide Creatinine Glucose POC Glucose (mg/dL) 237 H 215 H AST ALT Urine Protein Urine Glucose (UA) Urine Ketones Urine Blood Urine Mucus Assessment and Plan Plan: DKA with anion gap metabolic acidosis. The patient was admitted for treatment and the patient will be admitted to the intensive care unit for insulin therapy and fluid management and electrolyte management. Type 1 diabetes mellitus maintained on Levemir insulin 30 units at bedtime and 20 units of NovoLog with meals plus a sliding scale coverage. Being followed by endocrinology. HbA1c on outpatient basis has been elevated at around 10. Nausea and emesis likely secondary to underlying DKA Severe anion gap metabolic acidosis Hyperkalemia secondary to above, improving, treated with bicarb and Lokelma in the emergency department. Hepatomegaly with hepatic steatosis and mild disturbance in LFTs. No evidence of any gallstones or dilatation of the common bile duct. Plan Admit the patient to the intensive care for management of DKA, fluid management, electrolyte management, insulin management and will continue to follow. LFTs mildly elevated. The patient has normal amylase and lipase. No history of substance abuse. No send alcoholism. Will continue to follow. He is currently on Lovenox for DVT prophylaxis. He is also on IV Protonix.
--- NOTE | 2023-09-24 09:36 | P.PN ---
Subjective Progress Note Date: 09/24/23 This patient was seen in the emergency department on 09/23/2023. The patient came into the hospital because of hyperglycemia. He was also having frequent episodes of emesis and I was unable to keep any food or oral intake. Note that the patient is diabetic and he has type 1 diabetes mellitus. In the past, used to utilize insulin pump and the pump failed and subsequently he was switched to Levemir insulin. 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 Based on the ongoing symptoms of nausea and emesis, the patient missed his Levemir insulin dose. Subsequently, his condition got worse. He was unable to keep up with his oral intake. He was becoming more dehydrated and confused and lethargic and for that reason he came into the emergency department. Immediately, he was diagnosed having DKA with a serum bicarb of less than 5, sodium level of 136, normal renal functions, positive ketones in his urine and normal amylase and lipase, AST of 78 with an ALT of 105. In the emergency, the patient was given a total of 2.5 L of IV fluids and following that he was maintained on normal citrate of 200 cc an hour. He was started on insulin drip initially was given 9 units of push and initial insulin drip started at 9 units an hour. Despite his severe metabolic acidosis, the patient was still awake and alert and communicating. He was feeling very weak and lethargic however. Family was at the bedside. No chest pain. No cough or sputum production. No focal neurological deficits. No history of any heart disease. He does have history of peripheral neuropathy related to his diabetes mellitus. The patient will be admitted to the intensive care unit. His last admission for DKA was in January 2023. He states that his hemoglobin A1c is running at around 10. On today's evaluation of 09/24/2023, the patient is doing well. Awake and alert with no nausea or vomiting. Night was uneventful. The patient was treated for DKA with insulin insulin currently running at 2 units an hour. IV fluids in the form of D5 half-normal with 20 mill equivalents of potassium at rate of 150 cc an hour. Most recent blood work shows closure of the anion gap. Serum bicarb is at 14. CBC is within normal limits. Tachycardia has improved and the patient is currently in normal sinus rhythm. Hemodynamically stable. No altered mentation. No other significant complaints otherwise for now. Awaiting follow-up electrolytes. Objective - Vital Signs Vital signs: Vital Signs Temp 97.5 F L 09/24/23 04:00 Pulse 75 09/24/23 07:00 Resp 26 H 09/24/23 07:00 BP 108/54 09/24/23 07:00 Pulse Ox 98 09/24/23 07:00 FiO2 Intake & Output 09/23/23 09/24/23 09/24/23 18:59 06:59 18:59 Intake Total 1829.590 150 Output Total 1300 900 Balance -1300 929.590 150 Weight 90.718 kg 88.2 kg Intake: Intake, IV Titration 1829.590 150 Amount D5-0.45% NaCl with KCl 1350 150 20Meq/l 1,000 ml @ 150 mls/hr IV .Q6H40M [facility] Rx# :[id number] Insulin Regular 100 unit 79.590 In Sodium Chloride 0.9% 100 ml @ 0.1 UNITS/KG/HR 9.163 mls/hr IV .Q11H2M [facility] Rx#:[id number] Sodium Chloride 0.9% 1, 400 000 ml @ 250 mls/hr IV . Q4H [facility] Rx#:[id number] Output: Urine 1300 900 Other: Voiding Method Urinal - Exam The patient appeared well nourished and normally developed. Vital signs as documented. Head exam is unremarkable. No scleral icterus or corneal arcus noted. Neck is without jugular venous distension, thyromegaly, or carotid bruits. Carotid upstrokes are brisk bilaterally. Lungs are clear to auscultation and percussion. Cardiac exam reveals the PMI to be normally sized and situated. Rhythm is regular. First and second heart sounds normal. No murmurs, rubs or gallops. Abdominal exam reveals normal bowel sounds, no masses, no organomegaly and no aortic enlargement. Extremities are nonedematous and both femoral and pedal pulses are normal. - Labs CBC & Chem 7: 09/24/23 04:22 09/24/23 04:22 Labs: Abnormal Lab Results - Last 24 Hours (Table) 04/12/24 04/12/24 04/12/24 Range/Units 13:39 14:04 14:04 WBC 13.2 H (3.8-10.6) k/uL Hct 55.0 H (39.0-53.0) % MCV 102.9 H D (80.0-100.0) fL MCHC 30.8 L (31.0-37.0) g/dL Neutrophils # 11.4 H (1.3-7.7) k/uL VBG pH (7.31-7.41) VBG pCO2 (37-51) mmHg VBG HCO3 (24-28) mmol/L Sodium 135 L (137-145) mmol/L Potassium 7.3 H* (3.5-5.1) mmol/L Chloride (98-107) mmol/L Carbon Dioxide <5 L* (22-30) mmol/L Creatinine (0.66-1.25) mg/dL Glucose 594 H* (74-99) mg/dL POC Glucose (mg/dL) 487 H (70-110) mg/dL AST (17-59) U/L ALT (4-49) U/L Urine Protein (Negative) Urine Glucose (UA) (Negative) Urine Ketones (Negative) Urine Blood (Negative) Urine Mucus (None) /hpf 09/23/23 09/23/23 09/23/23 Range/Units 15:23 15:32 16:47 WBC (3.8-10.6) k/uL Hct (39.0-53.0) % MCV (80.0-100.0) fL MCHC (31.0-37.0) g/dL Neutrophils # (1.3-7.7) k/uL VBG pH 6.96 L* (7.31-7.41) VBG pCO2 20 L (37-51) mmHg VBG HCO3 5 L* (24-28) mmol/L Sodium (137-145) mmol/L Potassium (3.5-5.1) mmol/L Chloride (98-107) mmol/L Carbon Dioxide (22-30) mmol/L Creatinine (0.66-1.25) mg/dL Glucose (74-99) mg/dL POC Glucose (mg/dL) 509 H 389 H (70-110) mg/dL AST (17-59) U/L ALT (4-49) U/L Urine Protein (Negative) Urine Glucose (UA) (Negative) Urine Ketones (Negative) Urine Blood (Negative) Urine Mucus (None) /hpf 09/23/23 09/23/23 09/23/23 Range/Units 17:00 17:34 18:51 WBC (3.8-10.6) k/uL Hct (39.0-53.0) % MCV (80.0-100.0) fL MCHC (31.0-37.0) g/dL Neutrophils # (1.3-7.7) k/uL VBG pH (7.31-7.41) VBG pCO2 (37-51) mmHg VBG HCO3 (24-28) mmol/L Sodium (137-145) mmol/L Potassium (3.5-5.1) mmol/L Chloride (98-107) mmol/L Carbon Dioxide (22-30) mmol/L Creatinine (0.66-1.25) mg/dL Glucose (74-99) mg/dL POC Glucose (mg/dL) 383 H 300 H (70-110) mg/dL AST (17-59) U/L ALT (4-49) U/L Urine Protein Trace H (Negative) Urine Glucose (UA) 4+ H (Negative) Urine Ketones 4+ H (Negative) Urine Blood Trace H (Negative) Urine Mucus Rare H (None) /hpf 09/23/23 09/23/23 09/23/23 Range/Units 19:15 19:31 19:51 WBC (3.8-10.6) k/uL Hct (39.0-53.0) % MCV (80.0-100.0) fL MCHC (31.0-37.0) g/dL Neutrophils # (1.3-7.7) k/uL VBG pH (7.31-7.41) VBG pCO2 (37-51) mmHg VBG HCO3 (24-28) mmol/L Sodium 136 L (137-145) mmol/L Potassium (3.5-5.1) mmol/L Chloride 108 H (98-107) mmol/L Carbon Dioxide <5 L* (22-30) mmol/L Creatinine (0.66-1.25) mg/dL Glucose 277 H (74-99) mg/dL POC Glucose (mg/dL) 265 H 228 H (70-110) mg/dL AST 78 H (17-59) U/L ALT 105 H (4-49) U/L Urine Protein (Negative) Urine Glucose (UA) (Negative) Urine Ketones (Negative) Urine Blood (Negative) Urine Mucus (None) /hpf 09/23/23 09/23/23 09/23/23 Range/Units 20:52 21:49 22:48 WBC (3.8-10.6) k/uL Hct (39.0-53.0) % MCV (80.0-100.0) fL MCHC (31.0-37.0) g/dL Neutrophils # (1.3-7.7) k/uL VBG pH (7.31-7.41) VBG pCO2 (37-51) mmHg VBG HCO3 (24-28) mmol/L Sodium (137-145) mmol/L Potassium (3.5-5.1) mmol/L Chloride (98-107) mmol/L Carbon Dioxide (22-30) mmol/L Creatinine (0.66-1.25) mg/dL Glucose (74-99) mg/dL POC Glucose (mg/dL) 176 H 175 H 131 H (70-110) mg/dL AST (17-59) U/L ALT (4-49) U/L Urine Protein (Negative) Urine Glucose (UA) (Negative) Urine Ketones (Negative) Urine Blood (Negative) Urine Mucus (None) /hpf 09/24/23 09/24/23 09/24/23 Range/Units 00:02 00:50 00:59 WBC (3.8-10.6) k/uL Hct (39.0-53.0) % MCV (80.0-100.0) fL MCHC (31.0-37.0) g/dL Neutrophils # (1.3-7.7) k/uL VBG pH (7.31-7.41) VBG pCO2 (37-51) mmHg VBG HCO3 (24-28) mmol/L Sodium 135 L (137-145) mmol/L Potassium (3.5-5.1) mmol/L Chloride 111 H (98-107) mmol/L Carbon Dioxide 13 L (22-30) mmol/L Creatinine 0.63 L (0.66-1.25) mg/dL Glucose 138 H (74-99) mg/dL POC Glucose (mg/dL) 122 H 125 H (70-110) mg/dL AST (17-59) U/L ALT (4-49) U/L Urine Protein (Negative) Urine Glucose (UA) (Negative) Urine Ketones (Negative) Urine Blood (Negative) Urine Mucus (None) /hpf 09/24/23 09/24/23 09/24/23 Range/Units 02:10 03:00 04:17 WBC (3.8-10.6) k/uL Hct (39.0-53.0) % MCV (80.0-100.0) fL MCHC (31.0-37.0) g/dL Neutrophils # (1.3-7.7) k/uL VBG pH (7.31-7.41) VBG pCO2 (37-51) mmHg VBG HCO3 (24-28) mmol/L Sodium (137-145) mmol/L Potassium (3.5-5.1) mmol/L Chloride (98-107) mmol/L Carbon Dioxide (22-30) mmol/L Creatinine (0.66-1.25) mg/dL Glucose (74-99) mg/dL POC Glucose (mg/dL) 162 H 163 H 194 H (70-110) mg/dL AST (17-59) U/L ALT (4-49) U/L Urine Protein (Negative) Urine Glucose (UA) (Negative) Urine Ketones (Negative) Urine Blood (Negative) Urine Mucus (None) /hpf 09/24/23 09/24/23 09/24/23 Range/Units 04:22 05:11 06:11 WBC (3.8-10.6) k/uL Hct (39.0-53.0) % MCV (80.0-100.0) fL MCHC (31.0-37.0) g/dL Neutrophils # (1.3-7.7) k/uL VBG pH (7.31-7.41) VBG pCO2 (37-51) mmHg VBG HCO3 (24-28) mmol/L Sodium 135 L (137-145) mmol/L Potassium (3.5-5.1) mmol/L Chloride 111 H (98-107) mmol/L Carbon Dioxide 14 L (22-30) mmol/L Creatinine 0.64 L (0.66-1.25) mg/dL Glucose 190 H (74-99) mg/dL POC Glucose (mg/dL) 211 H 259 H (70-110) mg/dL AST (17-59) U/L ALT (4-49) U/L Urine Protein (Negative) Urine Glucose (UA) (Negative) Urine Ketones (Negative) Urine Blood (Negative) Urine Mucus (None) /hpf 09/24/23 09/24/23 Range/Units 07:03 08:32 WBC (3.8-10.6) k/uL Hct (39.0-53.0) % MCV (80.0-100.0) fL MCHC (31.0-37.0) g/dL Neutrophils # (1.3-7.7) k/uL VBG pH (7.31-7.41) VBG pCO2 (37-51) mmHg VBG HCO3 (24-28) mmol/L Sodium (137-145) mmol/L Potassium (3.5-5.1) mmol/L Chloride (98-107) mmol/L Carbon Dioxide (22-30) mmol/L Creatinine (0.66-1.25) mg/dL Glucose (74-99) mg/dL POC Glucose (mg/dL) 237 H 215 H (70-110) mg/dL AST (17-59) U/L ALT (4-49) U/L Urine Protein (Negative) Urine Glucose (UA) (Negative) Urine Ketones (Negative) Urine Blood (Negative) Urine Mucus (None) /hpf Assessment and Plan Plan: DKA with anion gap metabolic acidosis. The patient is improving and anion gap is closed. The serum bicarb is still low at 14. Awaiting the follow-up electrolytes. The patient is currently on units of insulin the patient is also on D5 half-normal saline at rate of 150 cc an hour. Type 1 diabetes mellitus maintained on Levemir insulin 30 units at bedtime and 20 units of NovoLog with meals plus a sliding scale coverage. Being followed by endocrinology. HbA1c on outpatient basis has been elevated at around 10. Nausea and emesis likely secondary to underlying DKA, recovered Severe anion gap metabolic acidosis, anion gap is closed Hyperkalemia secondary to above, improving, treated with bicarb and Lokelma in the emergency department. Potassium level is normalized Hepatomegaly with hepatic steatosis and mild disturbance in LFTs. No evidence of any gallstones or dilatation of the common bile duct. Plan Awaiting follow-up electrolytes If the serum bicarb is above 18, the patient can be provided diet and subsequently the patient will be switched to long-acting insulin. Recommend 30 units of Levemir and 20 units of NovoLog with meals at the start and sliding scale coverage. Blood sugar monitoring Check hemoglobin A1c Continue Lovenox Continue Protonix Will continue to follow
[2023-09-24 09:39] LABS: Glucose,Whole Blood 231 mg/dL (70-110)
[2023-09-24 10:15] LABS: African American GFR (CKD) >90 (>60 ml/min/1.73 sqM); Anion Gap 9 mmol/L; Blood Urea Nitrogen 13 mg/dL (9-20); Calcium 8.4 mg/dL (8.4-10.2); Carbon Dioxide 15 mmol/L (22-30); Chloride 109 mmol/L (98-107); Glucose 231 mg/dL (74-99); Non-African American GFR(CKD) >90 (>60 ml/min/1.73 sqM); Potassium 4.1 mmol/L (3.5-5.1); Sodium 133 mmol/L (137-145)
[2023-09-24 10:31] LABS: Glucose,Whole Blood 225 mg/dL (70-110)
--- NOTE | 2023-09-24 10:58 | P.PN ---
Subjective Progress Note Date: 09/24/23 43-year-old male with PMH of diabetes mellitus presents the ED for intractable nausea and vomiting since 1 AM. Recently discontinued his insulin pump in January and started SQ insulin. He reports compliance with his insulin. He has had difficulties managing his blood sugars since. 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 He denies any headache, lower extremity edema, chest pain, shortness of breath, palpitations, changes in urination or bowel habits. He denies any dizziness, numbness/weakness/tingling of the extremities. In the ED, he underwent extensive evaluation. BP 142/84, RR 18, HR 104, T97.9F, 100% on RA. CBC showed WBC count 13.2, hematocrit 55, MCV 102.9. VBG showed pH 6.96 and pCO2 of 20. BMP showed sodium 135, potassium 7.3, bicarb less than 5, glucose 594. Acetone positive. EKG showed sinus rhythm. Patient is admitted to ICU for treatment of DKA. 09/23 Patient was seen and examined. No nausea or vomiting. Symptoms greatly improved. Maintained on insulin drip. NS switched to D51/2NS with 20 meq KCl running at 150 cc/hr. CBC unremarkable. BMP Na 135, Cl 111, bicarb 14, Cr 0.64, glu 190. POC glucose ranging from 122-509. General: non toxic, no distress, appears at stated age, tremors Derm: warm, dry Head: atraumatic, normocephalic, symmetric Eyes: EOMI, no lid lag, anicteric sclera Mouth: no lip lesion, mucus membranes moist Cardiovascular: S1S2 reg, no murmur Lungs: CTA bilateral, no rhonchi, no rales , no accessory muscle use Ext: no gross muscle atrophy, no edema, no contractures Neuro: no focal neuro deficits Psych: Alert, oriented, appropriate affect Based on my assessment of this patient, this patient meets a high complexity level of care. Patient has an acute diagnosis of DKA that poses a threat to life or bodily function. Diabetic ketoacidosis: Continue D5 1/2NS with KCl at 150 cc/hr. Continue insulin drip until bicarb normalizes. Telemetry monitoring. Hourly accuchecks. BMP Q4H. At Risk Specialist on board. Resolved: Hyperkalemia, SIRS CODE STATUS: FULL CODE DVT Prophylaxis: Lovenox SQ GI Prophylaxis: Protonix IV Designated medical POA if patient is not able to make medical decisions for themselves: Mother, SO I have reviewed the following rn lactation consultant notes: Pulmonary. I have reviewed the results of the following tests: Multiple BMPs. I have ordered the following tests: BMP Q4H. I have discussed the care of this patient with the following independent historian: I have independently interpreted the following test below: I have discussed the management of this patient with the following physician: Dr. Hills. Objective - Vital Signs Vital signs: Vital Signs Temp 97.5 F L 09/24/23 04:00 Pulse 75 09/24/23 07:00 Resp 26 H 09/24/23 07:00 BP 108/54 09/24/23 07:00 Pulse Ox 98 09/24/23 07:00 FiO2 Intake & Output 09/23/23 09/24/23 09/24/23 18:59 06:59 18:59 Intake Total 1829.590 150 Output Total 1300 900 Balance -1300 929.590 150 Weight 90.718 kg 88.2 kg Intake: Intake, IV Titration 1829.590 150 Amount D5-0.45% NaCl with KCl 1350 150 20Meq/l 1,000 ml @ 150 mls/hr IV .Q6H40M [facility] Rx# :[id number] Insulin Regular 100 unit 79.590 In Sodium Chloride 0.9% 100 ml @ 0.1 UNITS/KG/HR 9.163 mls/hr IV .Q11H2M [facility] Rx#:[id number] Sodium Chloride 0.9% 1, 400 000 ml @ 250 mls/hr IV . Q4H [facility] Rx#:[id number] Output: Urine 1300 900 Other: Voiding Method Urinal - Labs CBC & Chem 7: 09/24/23 04:22 09/24/23 09:19 Labs: Abnormal Lab Results - Last 24 Hours (Table) 09/23/23 09/23/23 09/23/23 Range/Units 13:39 14:04 14:04 WBC 13.2 H (3.8-10.6) k/uL Hct 55.0 H (39.0-53.0) % MCV 102.9 H D (80.0-100.0) fL MCHC 30.8 L (31.0-37.0) g/dL Neutrophils # 11.4 H (1.3-7.7) k/uL VBG pH (7.31-7.41) VBG pCO2 (37-51) mmHg VBG HCO3 (24-28) mmol/L Sodium 135 L (137-145) mmol/L Potassium 7.3 H* (3.5-5.1) mmol/L Chloride (98-107) mmol/L Carbon Dioxide <5 L* (22-30) mmol/L Creatinine (0.66-1.25) mg/dL Glucose 594 H* (74-99) mg/dL POC Glucose (mg/dL) 487 H (70-110) mg/dL AST (17-59) U/L ALT (4-49) U/L Urine Protein (Negative) Urine Glucose (UA) (Negative) Urine Ketones (Negative) Urine Blood (Negative) Urine Mucus (None) /hpf 09/23/23 09/23/23 09/23/23 Range/Units 15:23 15:32 16:47 WBC (3.8-10.6) k/uL Hct (39.0-53.0) % MCV (80.0-100.0) fL MCHC (31.0-37.0) g/dL Neutrophils # (1.3-7.7) k/uL VBG pH 6.96 L* (7.31-7.41) VBG pCO2 20 L (37-51) mmHg VBG HCO3 5 L* (24-28) mmol/L Sodium (137-145) mmol/L Potassium (3.5-5.1) mmol/L Chloride (98-107) mmol/L Carbon Dioxide (22-30) mmol/L Creatinine (0.66-1.25) mg/dL Glucose (74-99) mg/dL POC Glucose (mg/dL) 509 H 389 H (70-110) mg/dL AST (17-59) U/L ALT (4-49) U/L Urine Protein (Negative) Urine Glucose (UA) (Negative) Urine Ketones (Negative) Urine Blood (Negative) Urine Mucus (None) /hpf 09/23/23 09/23/23 09/23/23 Range/Units 17:00 17:34 18:51 WBC (3.8-10.6) k/uL Hct (39.0-53.0) % MCV (80.0-100.0) fL MCHC (31.0-37.0) g/dL Neutrophils # (1.3-7.7) k/uL VBG pH (7.31-7.41) VBG pCO2 (37-51) mmHg VBG HCO3 (24-28) mmol/L Sodium (137-145) mmol/L Potassium (3.5-5.1) mmol/L Chloride (98-107) mmol/L Carbon Dioxide (22-30) mmol/L Creatinine (0.66-1.25) mg/dL Glucose (74-99) mg/dL POC Glucose (mg/dL) 383 H 300 H (70-110) mg/dL AST (17-59) U/L ALT (4-49) U/L Urine Protein Trace H (Negative) Urine Glucose (UA) 4+ H (Negative) Urine Ketones 4+ H (Negative) Urine Blood Trace H (Negative) Urine Mucus Rare H (None) /hpf 09/23/23 09/23/23 09/23/23 Range/Units 19:15 19:31 19:51 WBC (3.8-10.6) k/uL Hct (39.0-53.0) % MCV (80.0-100.0) fL MCHC (31.0-37.0) g/dL Neutrophils # (1.3-7.7) k/uL VBG pH (7.31-7.41) VBG pCO2 (37-51) mmHg VBG HCO3 (24-28) mmol/L Sodium 136 L (137-145) mmol/L Potassium (3.5-5.1) mmol/L Chloride 108 H (98-107) mmol/L Carbon Dioxide <5 L* (22-30) mmol/L Creatinine (0.66-1.25) mg/dL Glucose 277 H (74-99) mg/dL POC Glucose (mg/dL) 265 H 228 H (70-110) mg/dL AST 78 H (17-59) U/L ALT 105 H (4-49) U/L Urine Protein (Negative) Urine Glucose (UA) (Negative) Urine Ketones (Negative) Urine Blood (Negative) Urine Mucus (None) /hpf 09/23/23 09/23/2309/22/24 Range/Units 20:52 21:49 22:48 WBC (3.8-10.6) k/uL Hct (39.0-53.0) % MCV (80.0-100.0) fL MCHC (31.0-37.0) g/dL Neutrophils # (1.3-7.7) k/uL VBG pH (7.31-7.41) VBG pCO2 (37-51) mmHg VBG HCO3 (24-28) mmol/L Sodium (137-145) mmol/L Potassium (3.5-5.1) mmol/L Chloride (98-107) mmol/L Carbon Dioxide (22-30) mmol/L Creatinine (0.66-1.25) mg/dL Glucose (74-99) mg/dL POC Glucose (mg/dL) 176 H 175 H 131 H (70-110) mg/dL AST (17-59) U/L ALT (4-49) U/L Urine Protein (Negative) Urine Glucose (UA) (Negative) Urine Ketones (Negative) Urine Blood (Negative) Urine Mucus (None) /hpf 09/24/23 09/24/23 09/24/23 Range/Units 00:02 00:50 00:59 WBC (3.8-10.6) k/uL Hct (39.0-53.0) % MCV (80.0-100.0) fL MCHC (31.0-37.0) g/dL Neutrophils # (1.3-7.7) k/uL VBG pH (7.31-7.41) VBG pCO2 (37-51) mmHg VBG HCO3 (24-28) mmol/L Sodium 135 L (137-145) mmol/L Potassium (3.5-5.1) mmol/L Chloride 111 H (98-107) mmol/L Carbon Dioxide 13 L (22-30) mmol/L Creatinine 0.63 L (0.66-1.25) mg/dL Glucose 138 H (74-99) mg/dL POC Glucose (mg/dL) 122 H 125 H (70-110) mg/dL AST (17-59) U/L ALT (4-49) U/L Urine Protein (Negative) Urine Glucose (UA) (Negative) Urine Ketones (Negative) Urine Blood (Negative) Urine Mucus (None) /hpf 09/24/23 09/24/23 09/24/23 Range/Units 02:10 03:00 04:17 WBC (3.8-10.6) k/uL Hct (39.0-53.0) % MCV (80.0-100.0) fL MCHC (31.0-37.0) g/dL Neutrophils # (1.3-7.7) k/uL VBG pH (7.31-7.41) VBG pCO2 (37-51) mmHg VBG HCO3 (24-28) mmol/L Sodium (137-145) mmol/L Potassium (3.5-5.1) mmol/L Chloride (98-107) mmol/L Carbon Dioxide (22-30) mmol/L Creatinine (0.66-1.25) mg/dL Glucose (74-99) mg/dL POC Glucose (mg/dL) 162 H 163 H 194 H (70-110) mg/dL AST (17-59) U/L ALT (4-49) U/L Urine Protein (Negative) Urine Glucose (UA) (Negative) Urine Ketones (Negative) Urine Blood (Negative) Urine Mucus (None) /hpf 09/24/23 09/24/23 09/24/23 Range/Units 04:22 05:11 06:11 WBC (3.8-10.6) k/uL Hct (39.0-53.0) % MCV (80.0-100.0) fL MCHC (31.0-37.0) g/dL Neutrophils # (1.3-7.7) k/uL VBG pH (7.31-7.41) VBG pCO2 (37-51) mmHg VBG HCO3 (24-28) mmol/L Sodium 135 L (137-145) mmol/L Potassium (3.5-5.1) mmol/L Chloride 111 H (98-107) mmol/L Carbon Dioxide 14 L (22-30) mmol/L Creatinine 0.64 L (0.66-1.25) mg/dL Glucose 190 H (74-99) mg/dL POC Glucose (mg/dL) 211 H 259 H (70-110) mg/dL AST (17-59) U/L ALT (4-49) U/L Urine Protein (Negative) Urine Glucose (UA) (Negative) Urine Ketones (Negative) Urine Blood (Negative) Urine Mucus (None) /hpf 09/24/23 Range/Units 07:03 WBC (3.8-10.6) k/uL Hct (39.0-53.0) % MCV (80.0-100.0) fL MCHC (31.0-37.0) g/dL Neutrophils # (1.3-7.7) k/uL VBG pH (7.31-7.41) VBG pCO2 (37-51) mmHg VBG HCO3 (24-28) mmol/L Sodium (137-145) mmol/L Potassium (3.5-5.1) mmol/L Chloride (98-107) mmol/L Carbon Dioxide (22-30) mmol/L Creatinine (0.66-1.25) mg/dL Glucose (74-99) mg/dL POC Glucose (mg/dL) 237 H (70-110) mg/dL AST (17-59) U/L ALT (4-49) U/L Urine Protein (Negative) Urine Glucose (UA) (Negative) Urine Ketones (Negative) Urine Blood (Negative) Urine Mucus (None) /hpf
[2023-09-24 11:20] LABS: Glucose,Whole Blood 220 mg/dL (70-110)
[2023-09-24 11:22] VITALS: BMI 25.0
[2023-09-24 12:05] LABS: Glucose,Whole Blood 226 mg/dL (70-110)
[2023-09-24 13:08] LABS: African American GFR (CKD) >90 (>60 ml/min/1.73 sqM); Anion Gap 6 mmol/L; Blood Urea Nitrogen 12 mg/dL (9-20); Calcium 8.2 mg/dL (8.4-10.2); Carbon Dioxide 16 mmol/L (22-30); Chloride 109 mmol/L (98-107); Glucose 223 mg/dL (74-99); Non-African American GFR(CKD) >90 (>60 ml/min/1.73 sqM); Potassium 4.1 mmol/L (3.5-5.1); Sodium 131 mmol/L (137-145)
[2023-09-24 13:53] LABS: Chol/HDL Ratio 3.06 Ratio; LDL Cholesterol,Calculated 75.1 mg/dL (0.0-131.0)
[2023-09-24 14:09] LABS: Glucose,Whole Blood 198 mg/dL (70-110)
[2023-09-24 15:14] LABS: Glucose,Whole Blood 194 mg/dL (70-110)
[2023-09-24 16:00] LABS: Glucose,Whole Blood 175 mg/dL (70-110)
[2023-09-24 16:39] LABS: African American GFR (CKD) >90 (>60 ml/min/1.73 sqM); Anion Gap 4 mmol/L; Blood Urea Nitrogen 11 mg/dL (9-20); Calcium 8.3 mg/dL (8.4-10.2); Carbon Dioxide 17 mmol/L (22-30); Chloride 110 mmol/L (98-107); Glucose 188 mg/dL (74-99); Non-African American GFR(CKD) >90 (>60 ml/min/1.73 sqM); Sodium 131 mmol/L (137-145)
[2023-09-24 17:04] LABS: Glucose,Whole Blood 192 mg/dL (70-110)
[2023-09-24 17:53] LABS: Glucose,Whole Blood 174 mg/dL (70-110)
[2023-09-24 18:52] LABS: Glucose,Whole Blood 149 mg/dL (70-110)
[2023-09-24 20:07] LABS: Glucose,Whole Blood 174 mg/dL (70-110)
[2023-09-24 20:36] LABS: African American GFR (CKD) >90 (>60 ml/min/1.73 sqM); Anion Gap 2 mmol/L; Blood Urea Nitrogen 10 mg/dL (9-20); Calcium 8.3 mg/dL (8.4-10.2); Carbon Dioxide 19 mmol/L (22-30); Chloride 110 mmol/L (98-107); Glucose 172 mg/dL (74-99); Non-African American GFR(CKD) >90 (>60 ml/min/1.73 sqM); Sodium 131 mmol/L (137-145)
[2023-09-24 21:02] LABS: Glucose,Whole Blood 204 mg/dL (70-110)
[2023-09-24] MEDS: INSULIN DETEMIR (LEVEMIR) 100 UNIT/ML SYR SQ SCH (21:48)
[2023-09-24 22:13] LABS: Glucose,Whole Blood 269 mg/dL (70-110)
[2023-09-24 23:11] LABS: Glucose,Whole Blood 311 mg/dL (70-110)
[2023-09-25 00:10] LABS: Glucose,Whole Blood 301 mg/dL (70-110)
[2023-09-25] MEDS: INSULIN ASPART (NovoLOG) 100 UNIT/ML VIAL SQ ONE (01:22)
[2023-09-25 02:51] LABS: Glucose,Whole Blood 206 mg/dL (70-110)
[2023-09-25 04:36] LABS: Basophils % (A) 1 %; Eosinophils # (A) 0.1 k/uL (0-0.7); Eosinophils % (A) 2 %; HCT 39.3 % (39.0-53.0); HGB 12.9 gm/dL (13.0-17.5); Lymphocytes # (A) 2.6 k/uL (1.0-4.8); Lymphocytes % (A) 44 %; MCH 31.5 pg (25.0-35.0); MCHC 32.9 g/dL (31.0-37.0); MCV 95.8 fL (80.0-100.0); Mean Platelet Volume 7.3; Monocytes # (A) 0.2 k/uL (0-1.0); Monocytes % (A) 4 %; Neutrophils # (A) 2.8 k/uL (1.3-7.7); Neutrophils % (A) 47 %; Platelet Count 178 k/uL (150-450); RDW 12.4 % (11.5-15.5); WBC 5.8 k/uL (3.8-10.6)
[2023-09-25 05:04] LABS: African American GFR (CKD) >90 (>60 ml/min/1.73 sqM); Anion Gap 6 mmol/L; Blood Urea Nitrogen 11 mg/dL (9-20); Calcium 8.6 mg/dL (8.4-10.2); Carbon Dioxide 19 mmol/L (22-30); Chloride 109 mmol/L (98-107); Glucose 208 mg/dL (74-99); Non-African American GFR(CKD) >90 (>60 ml/min/1.73 sqM); Potassium 3.9 mmol/L (3.5-5.1); Sodium 134 mmol/L (137-145)
[2023-09-25 06:26] LABS: Glucose,Whole Blood 213 mg/dL (70-110)
[2023-09-25] MEDS: INSULIN ASPART (NovoLOG) 100 UNIT/ML VIAL SQ SCH ×2 (06:34→08:35)
--- NOTE | 2023-09-25 08:56 | P.PN ---
Subjective Progress Note Date: 09/25/23 This patient was seen in the emergency department on 09/23/2023. The patient came into the hospital because of hyperglycemia. He was also having frequent episodes of emesis and I was unable to keep any food or oral intake. Note that the patient is diabetic and he has type 1 diabetes mellitus. In the past, used to utilize insulin pump and the pump failed and subsequently he was switched to Levemir insulin. Recently, the patient is being seen by an recruitment assistant and the patient is currently on Levemir insulin 30 units at nighttime and he takes 20 units of NovoLog with meals plus a sliding scale coverage. Based on the ongoing symptoms of nausea and emesis, the patient missed his Levemir insulin dose. Subsequently, his condition got worse. He was unable to keep up with his oral intake. He was becoming more dehydrated and confused and lethargic and for that reason he came into the emergency department. Immediately, he was diagnosed having DKA with a serum bicarb of less than 5, sodium level of 136, normal renal functions, positive ketones in his urine and normal amylase and lipase, AST of 78 with an ALT of 105. In the emergency, the patient was given a total of 2.5 L of IV fluids and following that he was maintained on normal citrate of 200 cc an hour. He was started on insulin drip initially was given 9 units of push and initial insulin drip started at 9 units an hour. Despite his severe metabolic acidosis, the patient was still awake and alert and communicating. He was feeling very weak and lethargic however. Family was at the bedside. No chest pain. No cough or sputum production. No focal neurological deficits. No history of any heart disease. He does have history of peripheral neuropathy related to his diabetes mellitus. The patient will be admitted to the intensive care unit. His last admission for DKA was in January 2023. He states that his hemoglobin A1c is running at around 10. On today's evaluation of 09/24/2023, the patient is doing well. Awake and alert with no nausea or vomiting. Night was uneventful. The patient was treated for DKA with insulin insulin currently running at 2 units an hour. IV fluids in the form of D5 half-normal with 20 mill equivalents of potassium at rate of 150 cc an hour. Most recent blood work shows closure of the anion gap. Serum bicarb is at 14. CBC is within normal limits. Tachycardia has improved and the patient is currently in normal sinus rhythm. Hemodynamically stable. No altered mentation. No other significant complaints otherwise for now. Awaiting follow-up electrolytes. This morning of 09/25/2023, the patient is awake alert and communicating. Denies having any specific complaints. Recovered from his DKA. He is off the insulin drip. IV fluids at KVO. Tolerating diet. He was switched to oral Levemir insulin 30 units at night and 20 units with meals and sliding Scale coverage. Blood sugar from this morning was 208. Meanwhile, the rest of the electrolytes show a serum bicarb of 19, anion gap of 6, sodium levels at 134, potassium levels at 3.9 and the creatinine is normal. The white cell count at 5.8 with a hemoglobin 12.9. Cardiac rhythm is sinus. The patient is tolerating diet. No altered mentation. No nausea or emesis at this point in time. Objective - Vital Signs Vital signs: Vital Signs Temp 97.8 F 09/25/23 04:00 Pulse 59 L 09/25/23 07:00 Resp 17 09/25/23 07:00 BP 96/60 09/25/23 07:00 Pulse Ox 97 09/25/23 07:00 FiO2 Intake & Output 09/24/23 09/25/23 09/25/23 18:59 06:59 18:59 Intake Total 1827.607 757.061 Output Total 750 1225 900 Balance 1077.607 -467.939 -900 Weight 88.2 kg 88.9 kg Intake: IV 1650 750 D5-0.45% NaCl with KCl 1650 750 20Meq/l 1,000 ml @ 150 mls/hr IV .Q6H40M [facility] Rx# :[id number] Intake, IV Titration 177.607 7.061 Amount D5-0.45% NaCl with KCl 150 20Meq/l 1,000 ml @ 150 mls/hr IV .Q6H40M [facility] Rx# :[id number] Insulin Regular 100 unit 27.607 7.061 In Sodium Chloride 0.9% 100 ml @ 0.1 UNITS/KG/HR 9.163 mls/hr IV .Q11H2M [facility] Rx#:[id number] Output: Urine 750 1225 900 Other: Voiding Method Urinal Urinal # Voids 1 0 - Exam The patient appeared well nourished and normally developed. Vital signs as documented. Head exam is unremarkable. No scleral icterus or corneal arcus noted. Neck is without jugular venous distension, thyromegaly, or carotid bruits. Carotid upstrokes are brisk bilaterally. Lungs are clear to auscultation and percussion. Cardiac exam reveals the PMI to be normally sized and situated. Rhythm is regular. First and second heart sounds normal. No murmurs, rubs or gallops. Abdominal exam reveals normal bowel sounds, no masses, no organomegaly and no aortic enlargement. Extremities are nonedematous and both femoral and pedal pulses are normal. - Labs CBC & Chem 7: 09/25/23 03:51 09/25/23 03:51 Labs: Abnormal Lab Results - Last 24 Hours (Table) 09/24/23 09/24/23 09/24/23 Range/Units 09:19 09:37 10:29 RBC (4.30-5.90) m/uL Hgb (13.0-17.5) gm/dL Sodium 133 L (137-145) mmol/L Chloride 109 H (98-107) mmol/L Carbon Dioxide 15 L (22-30) mmol/L Creatinine (0.66-1.25) mg/dL Glucose 231 H (74-99) mg/dL POC Glucose (mg/dL) 231 H 225 H (70-110) mg/dL Calcium (8.4-10.2) mg/dL Phosphorus (2.5-4.5) mg/dL Triglycerides 150.00 H (0.00-149.00) mg/dL 09/24/23 09/24/23 09/24/23 Range/Units 11:19 12:04 12:43 RBC (4.30-5.90) m/uL Hgb (13.0-17.5) gm/dL Sodium 131 L (137-145) mmol/L Chloride 109 H (98-107) mmol/L Carbon Dioxide 16 L (22-30) mmol/L Creatinine 0.64 L (0.66-1.25) mg/dL Glucose 223 H (74-99) mg/dL POC Glucose (mg/dL) 220 H 226 H (70-110) mg/dL Calcium 8.2 L (8.4-10.2) mg/dL Phosphorus (2.5-4.5) mg/dL Triglycerides (0.00-149.00) mg/dL 09/24/23 09/24/23 09/24/23 Range/Units 14:06 15:12 15:50 RBC (4.30-5.90) m/uL Hgb (13.0-17.5) gm/dL Sodium 131 L (137-145) mmol/L Chloride 110 H (98-107) mmol/L Carbon Dioxide 17 L (22-30) mmol/L Creatinine 0.61 L (0.66-1.25) mg/dL Glucose 188 H (74-99) mg/dL POC Glucose (mg/dL) 198 H 194 H (70-110) mg/dL Calcium 8.3 L (8.4-10.2) mg/dL Phosphorus (2.5-4.5) mg/dL Triglycerides (0.00-149.00) mg/dL 09/24/23 09/24/23 09/24/23 Range/Units 15:59 17:02 17:51 RBC (4.30-5.90) m/uL Hgb (13.0-17.5) gm/dL Sodium (137-145) mmol/L Chloride (98-107) mmol/L Carbon Dioxide (22-30) mmol/L Creatinine (0.66-1.25) mg/dL Glucose (74-99) mg/dL POC Glucose (mg/dL) 175 H 192 H 174 H (70-110) mg/dL Calcium (8.4-10.2) mg/dL Phosphorus (2.5-4.5) mg/dL Triglycerides (0.00-149.00) mg/dL 09/24/23 09/24/23 09/24/23 Range/Units 18:49 19:45 20:05 RBC (4.30-5.90) m/uL Hgb (13.0-17.5) gm/dL Sodium 131 L (137-145) mmol/L Chloride 110 H (98-107) mmol/L Carbon Dioxide 19 L (22-30) mmol/L Creatinine 0.58 L (0.66-1.25) mg/dL Glucose 172 H (74-99) mg/dL POC Glucose (mg/dL) 149 H 174 H (70-110) mg/dL Calcium 8.3 L (8.4-10.2) mg/dL Phosphorus (2.5-4.5) mg/dL Triglycerides (0.00-149.00) mg/dL 09/24/23 09/24/23 09/24/23 Range/Units 21:01 22:12 23:09 RBC (4.30-5.90) m/uL Hgb (13.0-17.5) gm/dL Sodium (137-145) mmol/L Chloride (98-107) mmol/L Carbon Dioxide (22-30) mmol/L Creatinine (0.66-1.25) mg/dL Glucose (74-99) mg/dL POC Glucose (mg/dL) 204 H 269 H 311 H (70-110) mg/dL Calcium (8.4-10.2) mg/dL Phosphorus (2.5-4.5) mg/dL Triglycerides (0.00-149.00) mg/dL 09/25/23 09/25/23 09/25/23 Range/Units 00:08 02:49 03:51 RBC 4.10 L (4.30-5.90) m/uL Hgb 12.9 L (13.0-17.5) gm/dL Sodium (137-145) mmol/L Chloride (98-107) mmol/L Carbon Dioxide (22-30) mmol/L Creatinine (0.66-1.25) mg/dL Glucose (74-99) mg/dL POC Glucose (mg/dL) 301 H 206 H (70-110) mg/dL Calcium (8.4-10.2) mg/dL Phosphorus (2.5-4.5) mg/dL Triglycerides (0.00-149.00) mg/dL 09/25/23 09/25/23 Range/Units 03:51 06:25 RBC (4.30-5.90) m/uL Hgb (13.0-17.5) gm/dL Sodium 134 L (137-145) mmol/L Chloride 109 H (98-107) mmol/L Carbon Dioxide 19 L (22-30) mmol/L Creatinine (0.66-1.25) mg/dL Glucose 208 H (74-99) mg/dL POC Glucose (mg/dL) 213 H (70-110) mg/dL Calcium (8.4-10.2) mg/dL Phosphorus 2.0 L (2.5-4.5) mg/dL Triglycerides (0.00-149.00) mg/dL Assessment and Plan Plan: DKA with anion gap metabolic acidosis , recovered Type 1 diabetes mellitus maintained on Levemir insulin 30 units at bedtime and 20 units of NovoLog with meals plus a sliding scale coverage. Being followed by endocrinology. HbA1c on outpatient basis has been elevated at around 10. Nausea and emesis likely secondary to underlying DKA, recovered Severe anion gap metabolic acidosis, anion gap is closed Hyperkalemia secondary to above, improving, treated with bicarb and Lokelma in the emergency department. Potassium level is normalized Hepatomegaly with hepatic steatosis and mild disturbance in LFTs. No evidence of any gallstones or dilatation of the common bile duct. Plan Recommend 36 units of Levemir and 20 units of NovoLog with meals at the start and sliding scale coverage. Blood sugar monitoring Check hemoglobin A1c Continue Lovenox Continue Protonix The patient should be able to get discharged home today. Will discuss this with the medical team. Doing well. Tolerating diet. 9 Metabolic acidosis recovered. Medically asymptomatic. Hemodynamically stable. Recommend some increase in his baseline Levemir dose up to 36 units along with 20 units with meals and sliding scale coverage. Follow-up with Dr. Garcia from endocrinology.
[2023-09-25 10:06] VITALS: BP 102/61; PULSE 77; RESP 15; TEMP 98
--- NOTE | 2023-09-25 10:26 | P.DS ---
Providers Date of admission: 09/23/23 16:23 Expected date of discharge: 09/25/23 Attending physician: Anabell Floyd MD Consults: 09/23/23 16:26 Consult Physician Stat Consulting Provider: Ronald Hills Consult Reason/Comments: acute dka, hyperkalemia Do you want consulting provider notified?: Yes Primary care physician: [facility] Hospital Course: 43-year-old male with PMH of diabetes mellitus presents the ED for intractable nausea and vomiting since 1 AM. Recently discontinued his insulin pump in January and started SQ insulin. He reports compliance with his insulin. He has had difficulties managing his blood sugars since. He follows Dr. Burr as his Air Bag Stripper. He denies any headache, lower extremity edema, chest pain, shortness of breath, palpitations, changes in urination or bowel habits. He denies any dizziness, numbness/weakness/tingling of the extremities. In the ED, he underwent extensive evaluation. BP 142/84, RR 18, HR 104, T97.9F, 100% on RA. CBC showed WBC count 13.2, hematocrit 55, MCV 102.9. VBG showed pH 6.96 and pCO2 of 20. BMP showed sodium 135, potassium 7.3, bicarb less than 5, glucose 594. Acetone positive. EKG showed sinus rhythm. Patient is admitted to ICU for treatment of DKA. 09/23 Patient was seen and examined. No nausea or vomiting. Symptoms greatly improved. Maintained on insulin drip. NS switched to D51/2NS with 20 meq KCl running at 150 cc/hr. CBC unremarkable. BMP Na 135, Cl 111, bicarb 14, Cr 0.64, glu 190. POC glucose ranging from 122-509. 09/24 Patient was seen and examined. No complaints. Feeling well. Transitioned to SQ insulin and started on a diet yesterday. CBC RBC 4.1 Hg 12.9. BMP Na 134, Cl 109, bicarb 19, glu 208. Phos 2.0. POC glucose ranging from 149-311 over the past 24H. Patient advised to continue home insulin dose and follow up with his Air Bag Stripper Dr. Aminah LE. There are plans to transition him back to the insulin pump awaiting supplies. General: non toxic, no distress, appears at stated age Derm: warm, dry Head: atraumatic, normocephalic, symmetric Eyes: EOMI, no lid lag, anicteric sclera Mouth: no lip lesion, mucus membranes moist Cardiovascular: S1S2 reg, no murmur Lungs: CTA bilateral, no rhonchi, no rales , no accessory muscle use Ext: no gross muscle atrophy, no edema, no contractures Neuro: no focal neuro deficits Psych: Alert, oriented, appropriate affect Discharge Diagnosis: Diabetic ketoacidosis Normocytic anemia Hyponatremia Hypophosphatemia Resolved: Hyperkalemia, SIRS This complex discharge took 35 minutes to complete. Patient Condition at Discharge: Stable Plan - Discharge Summary New Discharge Prescriptions: New Insulin Detemir (Levemir) [Levemir] 36 unit SQ HS each Continue INSULIN LISPRO (HumaLOG) [humaLOG] 20 units SQ AC-TID Discontinued Insulin Detemir (Levemir) [Levemir] 30 unit SQ HS Discharge Medication List INSULIN LISPRO (HumaLOG) [humaLOG] 20 units SQ AC-TID 09/23/23 [History] Insulin Detemir (Levemir) [Levemir] 36 unit SQ HS each 09/25/23 [Rx] Follow up Appointment(s)/Referral(s): Jeremy Chang MD [Primary Care Provider] - 1-2 days Ata Burr MD [REFERRING] - 1 Week Discharge Disposition: HOME SELF-CARE
[2023-09-25] MEDS ORDERED: INSULIN DETEMIR (LEVEMIR) 100 UNIT/ML SYR SQ SCH (21:00)
== END 2023-09-25 11:25 | disposition home or self-care (01) | DRG 420 ==
LOC: EC 13:18 → 2SICU 16:23
PROVIDERS: ADMIT Family Medicine; ATTEND Family Medicine
DX: E10.10 Type 1 diabetes mellitus with ketoacidosis without coma (principal); E10.42 Type 1 diabetes mellitus with diabetic polyneuropathy; D64.9 Anemia, unspecified; R65.10 Systemic inflammatory response syndrome (SIRS) of non-infectious origin without acute organ dysfunction; E83.39 Other disorders of phosphorus metabolism; R00.0 Tachycardia, unspecified; E86.0 Dehydration; E87.1 Hypo-osmolality and hyponatremia; K76.0 Fatty (change of) liver, not elsewhere classified; R16.0 Hepatomegaly, not elsewhere classified; E87.5 Hyperkalemia; Z79.4 Long term (current) use of insulin; Z79.899 Other long term (current) drug therapy
CPT/HCPCS: 36415; 80048; 80051; 80061; 81001; 82009; 82150; 82550; 82565; 82803; 82947; 83690; 83735; 84100; 84450; 84460; 84520; 85025; 93005; 96361; 96374; 96375; 99285

== ENCOUNTER 2023-11-29 11:28 | Emergency (ER) | payer OTHER ==
[2023-11-29 11:40] LABS: Glucose,Whole Blood 112 mg/dL (70-110)
[2023-11-29 11:41] VITALS: BP 109/82; PULSE 86; RESP 18
--- NOTE | 2023-11-29 13:04 | ED ---
General Adult HPI - General Chief complaint: Dizziness Stated complaint: dizzy/SOB Time Seen by Provider: 11/29/23 11:32 Source: patient, EMS, RN notes reviewed, old records reviewed Mode of arrival: EMS Limitations: no limitations - History of Present Illness Initial comments: 43-year-old male presenting with lightheadedness while working outside in the heat. 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 Began to feel somewhat lightheaded. This had resolved after patient was taken into the cool air conditioning. He states he feels significantly better. No chest pain. No abdominal pain. No vomiting. - Related Data Home Medications Medication Instructions Recorded Confirmed INSULIN LISPRO (HumaLOG) [humaLOG] 20 units SQ AC-TID 09/23/23 11/29/23 Atorvastatin [Lipitor] 10 mg PO DIRECTED 11/29/23 11/29/23 Insulin Detemir (Levemir) [Levemir] 40 unit SQ HS 11/29/23 11/29/23 Allergies Allergy/AdvReac Type Severity Reaction Status Date / Time No Known Allergies Allergy Verified 11/29/23 12:33 Review of Systems ROS Statement: Those systems with pertinent positive or pertinent negative responses have been documented in the HPI. ROS Other: All systems not noted in ROS Statement are negative. Past Medical History Past Medical History: Diabetes Mellitus Additional Past Medical History / Comment(s): chicken pox when he was 5 History of Any Multi-Drug Resistant Organisms: None Reported Past Surgical History: No Surgical Hx Reported Past Psychological History: No Psychological Hx Reported Smoking Status: Former smoker Past Alcohol Use History: None Reported Past Drug Use History: None Reported General Exam Limitations: no limitations General appearance: alert, in no apparent distress Head exam: Present: atraumatic, normocephalic Eye exam: Present: normal appearance, PERRL ENT exam: Present: mucous membranes dry Neck exam: Present: normal inspection. Absent: tenderness, meningismus Respiratory exam: Present: normal lung sounds bilaterally. Absent: respiratory distress, wheezes Cardiovascular Exam: Present: regular rate, normal rhythm GI/Abdominal exam: Present: soft. Absent: distended, tenderness, guarding Extremities exam: Present: normal inspection, normal capillary refill Neurological exam: Present: alert, oriented X3, CN II-XII intact. Absent: motor sensory deficit Psychiatric exam: Present: normal affect, normal mood Skin exam: Present: warm, dry, intact. Absent: cyanosis, diaphoretic Course Vital Signs 11/29/23 11:33 Pulse Rate 86 Respiratory 18 Rate Blood Pressure 109/82 O2 Sat by Pulse 96 Oximetry Medical Decision Making - Medical Decision Making Was pt. sent in by a medical professional or institution (MIRIAN Vizcarra, SPREADING MACHINE OPERATOR, urgent care, hospital, or residential...) When possible be specific @ -No Did you speak to anyone other than the patient for history (EMS, parent, family, police, friend...)? What history was obtained from this source @ -No Did you review nursing and triage notes (agree or disagree)? Why? @ -I reviewed and agree with nursing and triage notes Were old charts reviewed (outside hosp., previous admission, EMS record, old EKG, old radiological studies, urgent care reports/EKG's, residential records)? Report findings @ -No old charts were reviewed Differential Syncope: Valvular disease, hypertrophic cardiomyopathy, pulmonary embolism, tamponade, tachycardia, bradycardia, MA, hypovolemia, hemorrhage, dissection, anemia, intracranial hemorrhage, seizure, hypoglycemia, carbon monoxide poisoning, this is not meant to be an all-inclusive list. EKG interpreted by me (3pts min.). @ -EKG: Sinus rhythm rate of 85, MD interval 123, QRS duration 96, QTc [address] segment elevation. X-rays interpreted by me (1pt min.). @ -None done CT interpreted by me (1pt min.). @ -None done U/S interpreted by me (1pt. min.). @ -None done What testing was considered but not performed or refused? (CT, X-rays, U/S, labs)? Why? @ -None What meds were considered but not given or refused? Why? @ -None Did you discuss the management of the patient with other professionals (professionals i.e. MIRIAN Vizcarra, SPREADING MACHINE OPERATOR, lab, RT, psych nurse, dialysis social worker, tank stave assembler, teacher, court registry officer, dependency case manager)? Give summary @ -No Was smoking cessation discussed for >3mins.? @ -No Was critical care preformed (if so, how long)? @ -No Were there social determinants of health that impacted care today? How? (Homelessness, low income, unemployed, alcoholism, drug addiction, transportation, low edu. Level, literacy, decrease access to med. care, assisted, rehab)? @ -No Was there de-escalation of care discussed even if they declined (Discuss DNR or withdrawal of care, Hospice)? DNR status @ -No What co-morbidities impacted this encounter? (DM, HTN, Smoking, COPD, CAD, Cancer, CVA, ARF, Chemo, Hep., AIDS, mental health diagnosis, sleep apnea, morbid obesity)? @ -None Was patient admitted / discharged? Hospital course, mention meds given and route, prescriptions, significant lab abnormalities, going to OR and other pertinent info. @ -43-year-old male with lightheadedness while working in the heat. He is given a liter of fluid and feels significantly better. He is hungry. He has no pain complaints. Patient will be discharged with instructions on oral hydration. Undiagnosed new problem with uncertain progno Patient states he already feels better upon arrival.sis? @ -No ] Were any procedures done? @ -No Diagnosis/symptom? @Dehydration Acute, or Chronic, or Acute on Chronic? @Acute Uncomplicated (without systemic symptoms) or Complicated (systemic symptoms)? @ -Default Side effects of treatment? @ -No Exacerbation, Progression, or Severe Exacerbation? @ -No Poses a threat to life or bodily function? How? (Chest pain, USA, MA, pneumonia, PE, COPD, DKA, ARF, appy, cholecystitis, CVA, Diverticulitis, Homicidal, Calderon icidal, threat to staff... and all critical care pts) @ -No - Lab Data Result diagrams: 11/29/23 13:14 11/29/23 13:14 Lab Results 11/29/23 11/29/23 11/29/23 Range/Units 11:38 13:14 13:14 WBC 8.9 (3.8-10.6) k/uL RBC 4.17 L (4.30-5.90) m/uL Hgb 12.8 L (13.0-17.5) gm/dL Hct 37.2 L (39.0-53.0) % MCV 89.0 D (80.0-100.0) fL MCH 30.7 (25.0-35.0) pg MCHC 34.5 (31.0-37.0) g/dL RDW 12.4 (11.5-15.5) % Plt Count 261 (150-450) k/uL MPV 7.9 Neutrophils % 67 % Lymphocytes % 23 % Monocytes % 6 % Eosinophils % 1 % Basophils % 0 % Neutrophils # 6.0 (1.3-7.7) k/uL Lymphocytes # 2.1 (1.0-4.8) k/uL Monocytes # 0.6 (0-1.0) k/uL Eosinophils # 0.1 (0-0.7) k/uL Basophils # 0.0 (0-0.2) k/uL Sodium 133 L (137-145) mmol/L Potassium 3.8 (3.5-5.1) mmol/L Chloride 105 (98-107) mmol/L Carbon Dioxide 18 L (22-30) mmol/L Anion Gap 10 mmol/L BUN 18 (9-20) mg/dL Creatinine 0.57 L (0.66-1.25) mg/dL Est GFR (CKD-EPI)AfAm >90 (>60 ml/min/1.73 sqM) Est GFR (CKD-EPI)NonAf >90 (>60 ml/min/1.73 sqM) Glucose 198 H (74-99) mg/dL POC Glucose (mg/dL) 112 H (70-110) mg/dL POC Glu Diesel Powerplant Mechanic ID Lupis Andrea Calcium 8.7 (8.4-10.2) mg/dL Total Bilirubin 0.8 (0.2-1.3) mg/dL AST 54 (17-59) U/L ALT 41 (4-49) U/L Alkaline Phosphatase 97 (38-126) U/L Total Protein 6.5 (6.3-8.2) g/dL Albumin 4.1 (3.5-5.0) g/dL Disposition Clinical Impression: Dehydration Disposition: HOME SELF-CARE Condition: Good Instructions (If sedation given, give patient instructions): Dizziness (ED), Dehydration (ED) Is patient prescribed a controlled substance at d/c from ED?: No Referrals: Jeremy Chang MD [Primary Care Provider] - 1-2 days Time of Disposition: 13:52
[2023-11-29] MEDS: SODIUM CHLORIDE 0.9% 1,000 ML IV ONE (13:14)
[2023-11-29 13:33] LABS: ALT 41 U/L (4-49); AST 54 U/L (17-59); African American GFR (CKD) >90 (>60 ml/min/1.73 sqM); Albumin 4.1 g/dL (3.5-5.0); Alkaline Phosphatase 97 U/L (38-126); Anion Gap 10 mmol/L; Basophils % (A) 0 %; Blood Urea Nitrogen 18 mg/dL (9-20); Calcium 8.7 mg/dL (8.4-10.2); Carbon Dioxide 18 mmol/L (22-30); Chloride 105 mmol/L (98-107); Eosinophils # (A) 0.1 k/uL (0-0.7); Eosinophils % (A) 1 %; Glucose 198 mg/dL (74-99); HCT 37.2 % (39.0-53.0); HGB 12.8 gm/dL (13.0-17.5); Lymphocytes # (A) 2.1 k/uL (1.0-4.8); Lymphocytes % (A) 23 %; MCH 30.7 pg (25.0-35.0); MCHC 34.5 g/dL (31.0-37.0); Mean Platelet Volume 7.9; Monocytes # (A) 0.6 k/uL (0-1.0); Monocytes % (A) 6 %; Neutrophils % (A) 67 %; Non-African American GFR(CKD) >90 (>60 ml/min/1.73 sqM); Platelet Count 261 k/uL (150-450); Potassium 3.8 mmol/L (3.5-5.1); RBC 4.17 m/uL (4.30-5.90); RDW 12.4 % (11.5-15.5); Sodium 133 mmol/L (137-145); Total Bilirubin 0.8 mg/dL (0.2-1.3); Total Protein 6.5 g/dL (6.3-8.2); WBC 8.9 k/uL (3.8-10.6)
== END 2023-11-29 14:13 | disposition home or self-care (01) ==
LOC: EC 11:28
DX: E86.0 Dehydration (principal); Z87.891 Personal history of nicotine dependence
CPT/HCPCS: 36415; 80053; 85025; 93005; 96360; 99285